=== PATIENT | male | born 1940 | race Hispanic/Latino ===

== ENCOUNTER 2021-10-19 20:22 | Inpatient (IN) | payer MEDICARE, OTHER ==
[2021-10-19] MEDS ORDERED: SODIUM CHLORIDE 0.9% 1000 ML 1,000 ML IV ONE (22:48)
[2021-10-19 23:29] LABS: Basophils % (Auto) 0.3 % (0.0-1.8); Eosinophils # (Auto) 0.2 K/mm3 (0.0-0.4); Eosinophils % (Auto) 1.7 % (0.0-4.3); Hematocrit 43.5 % (35.5-45.6); Hemoglobin 14.9 gm/dl (11.8-15.2); Lymphocytes # (Auto) 1.1 K/mm3 (1.2-5.4); Lymphocytes % (Auto) 9.6 % (13.4-35.0); Mean Corpuscular HGB Conc 34 % (32-34); Mean Corpuscular Volume 98 fl (84-94); Monocytes # (Auto) 0.9 K/mm3 (0.0-0.8); Monocytes % (Auto) 8.5 % (0.0-7.3); Platelet Count 172 K/mm3 (140-440); Red Blood Count 4.45 M/mm3 (3.65-5.03); Red Cell Distribution Width 15.6 % (13.2-15.2)
[2021-10-19 23:38] LABS: INR 1.09 (0.87-1.13)
[2021-10-19 23:51] LABS: Alanine Aminotransferase 97 units/L (7-56); Albumin 3.6 g/dL (3.9-5); Blood Urea Nitrogen 22 mg/dL (9-20); Calcium 9.2 mg/dL (8.4-10.2); Hemolysis Index 9
[2021-10-19 23:55] LABS: BUN/Creatinine Ratio 31
--- NOTE | 2021-10-20 01:47 | Cat Scan Report ---
CT head/brain wo con INDICATION / CLINICAL INFORMATION: 81 years Male; Altered Mental Status. TECHNIQUE: Routine CT head without contrast. All CT scans at this location are performed using CT dos e reduction for ALARA by means of automated exposure control. COMPARISON: 08/13/2010 FINDINGS: BRAIN / INTRACRANIAL CONTENTS: No acute hemorrhage, mass effect, midline shift, hydrocephalus, or acu te, large territorial infarct. Moderate, diffuse cerebral and cerebellar atrophy. Marked degree of hippocampal atrophy suggested amanda aterally. There are moderate, confluent areas of decreased attenuation in the white matter of the cerebral polina spheres. These are nonspecific findings and may be related to microangiopathy (hypertension, diabetes , atherosclerosis), given the patient's age. It might be difficult to evaluate for small areas of isc hemia without diffusion imaging by MRI. CRANIOCERVICAL JUNCTION: No significant abnormality. ORBITS: No significant abnormality of visualized orbits. SINUSES / MASTOIDS: Partial opacification seen in the right sphenoid sinus, with wall thickening-find ings suggest chronic sinus disease. Minimal mucosal thickening in the inferior mastoids on the left. ADDITIONAL FINDINGS: Atherosclerotic disease is seen in the anterior and posterior circulation. IMPRESSION: 1. No focal mass, hemorrhage, hydrocephalus, or acute, large territorial infarct. Signer Name: Carlos Mendoza MD, III Signed: 10/20/2021 1:43 AM Workstation Name: [id number]
--- NOTE | 2021-10-20 03:32 | XRay Report ---
CHEST 1 VIEW INDICATION / CLINICAL INFORMATION: Dyspnea STUDY TIME: 302 COMPARISON: 08/13/2010 FINDINGS: SUPPORT DEVICES: None HEART / MEDIASTINUM: No significant abnormality. LUNGS / PLEURA: Mild linear atelectatic changes are seen in the right lung. No definite pneumonic inf iltrates or effusions are seen. No pneumothorax. ADDITIONAL FINDINGS: No significant additional findings. Signer Name: Vinod Carrillo MD Signed: 10/20/2021 3:28 AM Workstation Name: [id number]
[2021-10-20 03:38] LABS: Color,Urine Amber (Yellow)
[2021-10-20 03:40] LABS: Ictotest,Urine Positive (Negative)
[2021-10-20 03:41] LABS: Mucus,Urine FEW /HPF
[2021-10-20 03:42] LABS: Amphetamine Screen,Urine Negative; Benzodiazepines Screen,Urine Negative; Cannabinoid Screen,Urine Negative; Cocaine Screen,Urine Negative; Methadone Screen,Urine Negative; Opiate Screen,Urine Negative
--- NOTE | 2021-10-20 04:39 | Emergency Department Report ---
ED Altered Mental Status HPI - General Chief Complaint: Altered Mental Status Stated Complaint: AMS PUI?: No Time Seen by Provider: 10/19/21 22:44 Source: family, EMS Mode of arrival: Stretcher Limitations: Altered Mental Status - History of Present Illness Initial Comments: FAMILY CALLED 911 FOR AMS, HASN'T BEEN SPEAKING FOR THE LAST 3 DAYS, REFUSING TO GET OUT OF BED, BASELINE IS AAOX4 - HE NORMALLY GETS IN HIS WHEELCHAIR HAS BEEN REFUSING THE PAST 3 DAYS, REFUSING TO ANSWER QUESTIONS - PT LIKES TO SHOOT GUNS AND FAMILY WOULD NOT GIVE PT HIM HIS AMMO AND ALLOW HIM TO CONTINUE HIS ACTIVITIES, REFUSING TO SPEAK TO DAUGHTER DUE TO THIS, SO THEY CALLED 911. EMS STATES HE IS AAOX2 PT IS IN NEGLECTED STATEM, SMELLS STRONGLY OF ETOH AND FECES , AWAKE BUT CANNOT ANSWER QUESTIONS REGARDING THE DAY AND TIME, KNOWS HE IS THE HOSPITAL. DAUGHTER WITH HIM STATED THAT HE [facility] AND HAS DONE TESTS FOR DEMETNIA BUT NO DIAGNOSIS YET MD Complaint: altered mental status, confusion, decreased responsiveness -: Gradual, days(s) Severity: moderate Consistency of Symptoms: constant Context: history of similar presen Associated Symptoms: denies: denies other symptoms, chest pain, cough, diaphoresis, fever/chills, headaches - Related Data Allergies Allergy/AdvReac Type Severity Reaction Status Date / Time No Known Allergies Allergy Unverified 10/19/21 21:53 ED Review of Systems ROS: Stated complaint: AMS Other details as noted in HPI Comment: Unobtainable due to pts medical conditions ED Past Medical Hx - Past Medical History Previous Medical History?: Yes Hx Hypertension: Yes Hx Diabetes: Yes (METFORMIN) Hx Psychiatric Treatment: Yes (DEPRESSION) - Surgical History Past Surgical History?: No - Social History Smoking Status: Unknown if ever smoked Substance Use Type: None ED Physical Exam - General Limitations: Altered Mental Status General appearance: alert, other (unkempt, dishevelled ) - Head Head exam: Present: atraumatic, normocephalic - Eye Eye exam: Present: normal appearance - ENT ENT exam: Present: mucous membranes moist - Neck Neck exam: Present: normal inspection - Respiratory Respiratory exam: Present: normal lung sounds bilaterally. Absent: respiratory distress - Cardiovascular Cardiovascular Exam: Present: regular rate, normal rhythm. Absent: systolic murmur, diastolic murmur, rubs, gallop - GI/Abdominal GI/Abdominal exam: Present: soft, normal bowel sounds - Rectal Rectal exam: Present: deferred - Extremities Exam Extremities exam: Present: normal inspection - Back Exam Back exam: Present: normal inspection - Expanded Neurological Exam Expanded Neurological exam: Present: innattentive Best Eye Response ([place]): (4) open spontaneously Best Motor Response ([place]): (6) obeys commands Best Verbal Response ([place]): (4) confused conversation [place] Total: 14 - Psychiatric Psychiatric exam: Present: normal affect, normal mood - Skin Skin exam: Present: warm, dry, intact, normal color. Absent: rash ED Course Vital Signs 10/19/21 10/19/21 10/19/21 21:53 22:25 22:31 Temperature 97.3 F L Pulse Rate 100 H Respiratory 18 Rate Blood Pressure 136/92 140/96 O2 Sat by Pulse 100 100 100 Oximetry 10/19/21 10/19/21 10/19/21 22:45 23:01 23:15 Temperature Pulse Rate Respiratory Rate Blood Pressure 145/93 145/93 130/86 O2 Sat by Pulse 100 99 99 Oximetry 10/19/21 10/19/21 10/20/21 23:31 23:46 00:00 Temperature Pulse Rate Respiratory Rate Blood Pressure 130/86 130/86 138/95 O2 Sat by Pulse 100 100 99 Oximetry 10/20/21 10/20/21 10/20/21 00:15 00:31 00:45 Temperature Pulse Rate Respiratory Rate Blood Pressure 143/97 143/97 152/111 O2 Sat by Pulse 99 99 99 Oximetry 10/20/21 10/20/21 10/20/21 01:01 01:06 01:15 Temperature Pulse Rate Respiratory Rate Blood Pressure 152/111 147/115 O2 Sat by Pulse 100 99 99 Oximetry 10/20/21 10/20/21 10/20/21 01:31 01:40 01:45 Temperature Pulse Rate 100 H Respiratory Rate Blood Pressure 147/115 142/93 O2 Sat by Pulse 99 99 Oximetry 10/20/21 10/20/21 10/20/21 02:01 02:15 02:31 Temperature Pulse Rate Respiratory Rate Blood Pressure 142/93 132/101 132/101 O2 Sat by Pulse 100 100 100 Oximetry 10/20/21 02:45 Temperature Pulse Rate Respiratory Rate Blood Pressure 139/89 O2 Sat by Pulse 99 Oximetry - Lab Data Result diagrams: 10/19/21 23:10 10/19/21 23:10 Lab Results 10/19/21 10/19/21 10/19/21 Range/Units 23:10 23:10 23:10 WBC 11.1 H (4.5-11.0) K/mm3 RBC 4.45 (3.65-5.03) M/mm3 Hgb 14.9 (11.8-15.2) gm/dl Hct 43.5 (35.5-45.6) % MCV 98 H (84-94) fl MCH 33 H (28-32) pg MCHC 34 (32-34) % RDW 15.6 H (13.2-15.2) % Plt Count 172 (140-440) K/mm3 Lymph % (Auto) 9.6 L (13.4-35.0) % [place] % (Auto) 8.5 H (0.0-7.3) % Eos % (Auto) 1.7 (0.0-4.3) % Baso % (Auto) 0.3 (0.0-1.8) % Lymph # (Auto) 1.1 L (1.2-5.4) K/mm3 [place] # (Auto) 0.9 H (0.0-0.8) K/mm3 Eos # (Auto) 0.2 (0.0-0.4) K/mm3 Baso # (Auto) 0.0 (0.0-0.1) K/mm3 Seg Neutrophils % 79.9 H (40.0-70.0) % Seg Neutrophils # 8.9 H (1.8-7.7) K/mm3 PT 15.3 H (12.2-14.9) Sec. INR 1.09 (0.87-1.13) Sodium (137-145) mmol/L Potassium (3.6-5.0) mmol/L Chloride (98-107) mmol/L Carbon Dioxide (22-30) mmol/L Anion Gap mmol/L BUN (9-20) mg/dL Creatinine (0.8-1.3) mg/dL Estimated GFR ml/min BUN/Creatinine Ratio % Glucose (75-100) mg/dL Lactic Acid 2.70 H* (0.7-2.0) mmol/L Calcium (8.4-10.2) mg/dL Total Bilirubin (0.1-1.2) mg/dL AST (5-40) units/L ALT (7-56) units/L Alkaline Phosphatase (35-129) units/L Ammonia (25-60) umol/L Total Creatine Kinase (55-170) units/L Troponin T (0.00-0.029) ng/mL Total Protein (6.3-8.2) g/dL Albumin (3.9-5) g/dL Albumin/Globulin Ratio % Urine Color (Yellow) Urine Turbidity (Clear) Specific [place] (Man) (1.003-1.030) Ur Protein (Man) (Negative) mg/dL Ur Ketones (Man) (Negative) Ur Nitrite (Man) (Negative) Urine Bilirubin (Man) (Negative) Urine Ictotest (Negative) Leukocyte Esterase (Man) (Negative) Urine WBC (Auto) (0.0-6.0) /HPF Urine RBC (Auto) (0.0-6.0) /HPF U Epithel Cells (Auto) (0-13.0) /HPF Urine RBC (Manual) (Negative) Urine Mucus /HPF Salicylates (2.8-20.0) mg/dL Urine Opiates Screen Urine Methadone Screen Acetaminophen (10.0-30.0) ug/mL Ur Barbiturates Screen Ur Phencyclidine Scrn Ur Amphetamines Screen U Benzodiazepines Scrn Urine Cocaine Screen U Marijuana (THC) Screen Drugs of Abuse Note Plasma/Serum Alcohol (0-0.07) % 10/19/21 10/19/21 10/19/21 Range/Units 23:10 23:10 23:10 WBC (4.5-11.0) K/mm3 RBC (3.65-5.03) M/mm3 Hgb (11.8-15.2) gm/dl Hct (35.5-45.6) % MCV (84-94) fl MCH (28-32) pg MCHC (32-34) % RDW (13.2-15.2) % Plt Count (140-440) K/mm3 Lymph % (Auto) (13.4-35.0) % [place] % (Auto) (0.0-7.3) % Eos % (Auto) (0.0-4.3) % Baso % (Auto) (0.0-1.8) % Lymph # (Auto) (1.2-5.4) K/mm3 [place] # (Auto) (0.0-0.8) K/mm3 Eos # (Auto) (0.0-0.4) K/mm3 Baso # (Auto) (0.0-0.1) K/mm3 Seg Neutrophils % (40.0-70.0) % Seg Neutrophils # (1.8-7.7) K/mm3 PT (12.2-14.9) Sec. INR (0.87-1.13) Sodium 138 (137-145) mmol/L Potassium 4.3 (3.6-5.0) mmol/L Chloride 100.3 (98-107) mmol/L Carbon Dioxide 21 L (22-30) mmol/L Anion Gap 21 mmol/L BUN 22 H (9-20) mg/dL Creatinine 0.7 L (0.8-1.3) mg/dL Estimated GFR > 60 ml/min BUN/Creatinine Ratio 31 % Glucose 195 H (75-100) mg/dL Lactic Acid (0.7-2.0) mmol/L Calcium 9.2 (8.4-10.2) mg/dL Total Bilirubin 5.50 H (0.1-1.2) mg/dL AST 123 H (5-40) units/L ALT 97 H (7-56) units/L Alkaline Phosphatase 637 H (35-129) units/L Ammonia (25-60) umol/L Total Creatine Kinase 313 H (55-170) units/L Troponin T 0.020 (0.00-0.029) ng/mL Total Protein 7.9 (6.3-8.2) g/dL Albumin 3.6 L (3.9-5) g/dL Albumin/Globulin Ratio 0.8 % Urine Color (Yellow) Urine Turbidity (Clear) Specific [place] (Man) (1.003-1.030) Ur Protein (Man) (Negative) mg/dL Ur Ketones (Man) (Negative) Ur Nitrite (Man) (Negative) Urine Bilirubin (Man) (Negative) Urine Ictotest (Negative) Leukocyte Esterase (Man) (Negative) Urine WBC (Auto) (0.0-6.0) /HPF Urine RBC (Auto) (0.0-6.0) /HPF U Epithel Cells (Auto) (0-13.0) /HPF Urine RBC (Manual) (Negative) Urine Mucus /HPF Salicylates < 0.3 L (2.8-20.0) mg/dL Urine Opiates Screen Urine Methadone Screen Acetaminophen 5.0 L (10.0-30.0) ug/mL Ur Barbiturates Screen Ur Phencyclidine Scrn Ur Amphetamines Screen U Benzodiazepines Scrn Urine Cocaine Screen U Marijuana (THC) Screen Drugs of Abuse Note Plasma/Serum Alcohol (0-0.07) % 10/19/21 10/20/21 10/20/21 Range/Units 23:10 00:28 00:38 WBC (4.5-11.0) K/mm3 RBC (3.65-5.03) M/mm3 Hgb (11.8-15.2) gm/dl Hct (35.5-45.6) % MCV (84-94) fl MCH (28-32) pg MCHC (32-34) % RDW (13.2-15.2) % Plt Count (140-440) K/mm3 Lymph % (Auto) (13.4-35.0) % [place] % (Auto) (0.0-7.3) % Eos % (Auto) (0.0-4.3) % Baso % (Auto) (0.0-1.8) % Lymph # (Auto) (1.2-5.4) K/mm3 [place] # (Auto) (0.0-0.8) K/mm3 Eos # (Auto) (0.0-0.4) K/mm3 Baso # (Auto) (0.0-0.1) K/mm3 Seg Neutrophils % (40.0-70.0) % Seg Neutrophils # (1.8-7.7) K/mm3 PT (12.2-14.9) Sec. INR (0.87-1.13) Sodium (137-145) mmol/L Potassium (3.6-5.0) mmol/L Chloride (98-107) mmol/L Carbon Dioxide (22-30) mmol/L Anion Gap mmol/L BUN (9-20) mg/dL Creatinine (0.8-1.3) mg/dL Estimated GFR ml/min BUN/Creatinine Ratio % Glucose (75-100) mg/dL Lactic Acid 3.30 H* (0.7-2.0) mmol/L Calcium (8.4-10.2) mg/dL Total Bilirubin (0.1-1.2) mg/dL AST (5-40) units/L ALT (7-56) units/L Alkaline Phosphatase (35-129) units/L Ammonia 28.0 (25-60) umol/L Total Creatine Kinase (55-170) units/L Troponin T (0.00-0.029) ng/mL Total Protein (6.3-8.2) g/dL Albumin (3.9-5) g/dL Albumin/Globulin Ratio % Urine Color (Yellow) Urine Turbidity (Clear) Specific [place] (Man) (1.003-1.030) Ur Protein (Man) (Negative) mg/dL Ur Ketones (Man) (Negative) Ur Nitrite (Man) (Negative) Urine Bilirubin (Man) (Negative) Urine Ictotest (Negative) Leukocyte Esterase (Man) (Negative) Urine WBC (Auto) (0.0-6.0) /HPF Urine RBC (Auto) (0.0-6.0) /HPF U Epithel Cells (Auto) (0-13.0) /HPF Urine RBC (Manual) (Negative) Urine Mucus /HPF Salicylates (2.8-20.0) mg/dL Urine Opiates Screen Urine Methadone Screen Acetaminophen (10.0-30.0) ug/mL Ur Barbiturates Screen Ur Phencyclidine Scrn Ur Amphetamines Screen U Benzodiazepines Scrn Urine Cocaine Screen U Marijuana (THC) Screen Drugs of Abuse Note Plasma/Serum Alcohol < 0.01 (0-0.07) % 10/20/21 10/20/21 Range/Units 03:17 03:17 WBC (4.5-11.0) K/mm3 RBC (3.65-5.03) M/mm3 Hgb (11.8-15.2) gm/dl Hct (35.5-45.6) % MCV (84-94) fl MCH (28-32) pg MCHC (32-34) % RDW (13.2-15.2) % Plt Count (140-440) K/mm3 Lymph % (Auto) (13.4-35.0) % [place] % (Auto) (0.0-7.3) % Eos % (Auto) (0.0-4.3) % Baso % (Auto) (0.0-1.8) % Lymph # (Auto) (1.2-5.4) K/mm3 [place] # (Auto) (0.0-0.8) K/mm3 Eos # (Auto) (0.0-0.4) K/mm3 Baso # (Auto) (0.0-0.1) K/mm3 Seg Neutrophils % (40.0-70.0) % Seg Neutrophils # (1.8-7.7) K/mm3 PT (12.2-14.9) Sec. INR (0.87-1.13) Sodium (137-145) mmol/L Potassium (3.6-5.0) mmol/L Chloride (98-107) mmol/L Carbon Dioxide (22-30) mmol/L Anion Gap mmol/L BUN (9-20) mg/dL Creatinine (0.8-1.3) mg/dL Estimated GFR ml/min BUN/Creatinine Ratio % Glucose (75-100) mg/dL Lactic Acid (0.7-2.0) mmol/L Calcium (8.4-10.2) mg/dL Total Bilirubin (0.1-1.2) mg/dL AST (5-40) units/L ALT (7-56) units/L Alkaline Phosphatase (35-129) units/L Ammonia (25-60) umol/L Total Creatine Kinase (55-170) units/L Troponin T (0.00-0.029) ng/mL Total Protein (6.3-8.2) g/dL Albumin (3.9-5) g/dL Albumin/Globulin Ratio % Urine Color [place] (Yellow) Urine Turbidity Clear (Clear) Specific [place] (Man) 1.025 (1.003-1.030) Ur Protein (Man) 1+ (Negative) mg/dL Ur Ketones (Man) 1+ (Negative) Ur Nitrite (Man) Negative (Negative) Urine Bilirubin (Man) Small (Negative) Urine Ictotest Positive (Negative) Leukocyte Esterase (Man) Negative (Negative) Urine WBC (Auto) 6.0 (0.0-6.0) /HPF Urine RBC (Auto) 3.0 (0.0-6.0) /HPF U Epithel Cells (Auto) 3.0 (0-13.0) /HPF Urine RBC (Manual) Negative (Negative) Urine Mucus Few /HPF Salicylates (2.8-20.0) mg/dL Urine Opiates Screen Negative Urine Methadone Screen Negative Acetaminophen (10.0-30.0) ug/mL Ur Barbiturates Screen Negative Ur Phencyclidine Scrn Negative Ur Amphetamines Screen Negative U Benzodiazepines Scrn Negative Urine Cocaine Screen Negative U Marijuana (THC) Screen Negative Drugs of Abuse Note Disclamer Plasma/Serum Alcohol (0-0.07) % - EKG Data -: EKG Interpreted by Me EKG shows normal: sinus rhythm Rate: tachycardia Interpretation: no acute changes - Radiology Data Radiology results: report reviewed, image reviewed - Medical Decision Making work up showed elevated LFTS and t bili , no abdominal pain no history of liver disease and normal ammonia ct head negative as well as x ay UA didn;t show uti vss , talked to daughter wants him to be admitted to see why he has AMS Critical care attestation.: If time is entered above; I have spent that time in minutes in the direct care of this critically ill patient, excluding procedure time. ED Disposition Clinical Impression: Altered mental status, Confusion, Transaminitis Disposition: ADMITTED INPATIENT Is pt being admited?: Yes Does the pt Need Aspirin: No Condition: Stable Referrals: UMANG WEBSTER MD [Primary Care Provider] - 3-5 Days
[2021-10-20] MEDS ORDERED: ALBUTEROL 2.5 MG/3 ML NEBU IH PRN (05:56)
[2021-10-20] MEDS ORDERED: ONDANSETRON 4 MG/2 ML INJ IV PRN (05:56)
[2021-10-20] MEDS ORDERED: MORPHINE 4 MG/1 ML INJ IV PRN (05:56)
[2021-10-20] MEDS ORDERED: MORPHINE 2 MG/1 ML INJ IV PRN (05:56)
[2021-10-20] MEDS ORDERED: DEXTROSE 50% IN WATER (25GM) 50 ML SYRINGE IV PRN (05:58)
--- NOTE | 2021-10-20 06:06 | History and Physical Report ---
History of Present Illness Date of examination: 10/20/21 Date of admission: 10/20/21 Chief complaint: Altered mental status History of present illness: 81 years old male with past medical history of diabetes and depression was brought to the emergency room because of altered mental status. As per the record patient has not been speaking for the last 3 days, refusing to get out of the bed. Family called 911 for altered mental status. Patient is normally gets in his wheelchair but has been refusing for the past 3 days. Patient refusing to answer question. Patient likes to shoot grandson and family would not give patient his emanation and allow him to continue his activities. Patient refused to speak to daughter due to these, so they called 911. EMS states patient is awake alert oriented x2. Patient is in neglected state. Patient smells strongly EtOH emphasis. Patient is awake but cannot answer question regarding the day and time, knows he is in the hospital. Daughter with him is started that [facility] and has done test for dementia but no diagnosis yet. In the ER initial CT scan of the head shows no acute intracranial abnormality, patient ammonia is 28.0 but lactic acid is 2.70 Past History Past Medical History: diabetes, hypertension, other (Depression) Past Surgical History: No surgical history Social history: alcohol abuse Family history: hypertension Medications and Allergies Allergies Allergy/AdvReac Type Severity Reaction Status Date / Time No Known Allergies Allergy Unverified 10/19/21 21:53 Active Meds: Active Medications Acetaminophen (Acetaminophen 325 Mg Tab) 650 mg PO Q4H PRN PRN Reason: Pain MILD(1-3)/Fever >100.5/CALLEJAS Albuterol (Albuterol 2.5 Mg/3 Ml Nebu) 2.5 mg IH Q3HRT PRN PRN Reason: Shortness Of Breath Albuterol/Ipratropium (Ipratropium/Albuterol Sulfate 3 Ml Ampul.Neb) 1 ampul IH Q6HRT BALDO Dextrose (Dextrose 50% In Water (25gm) 50 Ml Syringe) 50 ml IV Q30MIN PRN; Protocol PRN Reason: Hypoglycemia Insulin Human Lispro (Insulin Lispro 100 Unit/Ml) 0 unit SUB-Q ACHS BALDO; Protocol Morphine Sulfate (Morphine 2 Mg/1 Ml Inj) 2 mg IV Q4H PRN PRN Reason: Pain, Moderate (4-6) Morphine Sulfate (Morphine 4 Mg/1 Ml Inj) 4 mg IV Q4H PRN PRN Reason: Pain , Severe (7-10) Ondansetron HCl (Ondansetron 4 Mg/2 Ml Inj) 4 mg IV Q8H PRN PRN Reason: Nausea And Vomiting Sodium Chloride (Sodium Chloride 0.9% 10 Ml Flush Syringe) 10 ml IV BID BALDO Sodium Chloride (Sodium Chloride 0.9% 10 Ml Flush Syringe) 10 ml IV PRN PRN PRN Reason: LINE FLUSH Review of Systems All systems: negative Constitutional: fatigue, malaise, lethargy, other Exam - Constitutional Vitals: Temp Pulse Resp BP Pulse Ox 97.3 F L 100 H 18 139/89 99 10/19/21 21:53 10/20/21 01:40 10/19/21 21:53 10/20/21 02:45 10/20/21 02:45 General appearance: Present: no acute distress, well-nourished - EENT Eyes: Present: PERRL ENT: hearing intact, clear oral mucosa - Neck Neck: Present: supple, normal ROM - Respiratory Respiratory effort: normal Respiratory: bilateral: CTA - Cardiovascular Heart Sounds: Present: S1 & S2. Absent: rub, click - Extremities Extremities: pulses symmetrical, No edema Peripheral Pulses: within normal limits - Abdominal General gastrointestinal: Present: soft, non-tender, non-distended, normal bowel sounds Male genitourinary: Present: normal - Integumentary Integumentary: Present: clear, warm, dry - Musculoskeletal Musculoskeletal: gait normal, strength equal bilaterally - Psychiatric Psychiatric: intact judgment & insight, other (Patient is awake alert) - Neurologic Neurologic: CNII-XII intact, moves all extremities, other (Patient is colored) HEART Score - HEART Score Troponin: Troponin T 0.020 ng/mL (0.00-0.029) 10/19/21 23:10 Results - Labs CBC & Chem 7: 10/19/21 23:10 10/19/21 23:10 Labs: Laboratory Last Values WBC 11.1 K/mm3 (4.5-11.0) H 10/19/21 23:10 RBC 4.45 M/mm3 (3.65-5.03) 10/19/21 23:10 Hgb 14.9 gm/dl (11.8-15.2) 10/19/21 23:10 Hct 43.5 % (35.5-45.6) 10/19/21 23:10 MCV 98 fl (84-94) H 10/19/21 23:10 MCH 33 pg (28-32) H 10/19/21 23:10 MCHC 34 % (32-34) 10/19/21 23:10 RDW 15.6 % (13.2-15.2) H 10/19/21 23:10 Plt Count 172 K/mm3 (140-440) 10/19/21 23:10 Lymph % (Auto) 9.6 % (13.4-35.0) L 10/19/21 23:10 [place] % (Auto) 8.5 % (0.0-7.3) H 10/19/21 23:10 Eos % (Auto) 1.7 % (0.0-4.3) 10/19/21 23:10 Baso % (Auto) 0.3 % (0.0-1.8) 10/19/21 23:10 Lymph # (Auto) 1.1 K/mm3 (1.2-5.4) L 10/19/21 23:10 [place] # (Auto) 0.9 K/mm3 (0.0-0.8) H 10/19/21 23:10 Eos # (Auto) 0.2 K/mm3 (0.0-0.4) 10/19/21 23:10 Baso # (Auto) 0.0 K/mm3 (0.0-0.1) 10/19/21 23:10 Seg Neutrophils % 79.9 % (40.0-70.0) H 10/19/21 23:10 Seg Neutrophils # 8.9 K/mm3 (1.8-7.7) H 10/19/21 23:10 PT 15.3 Sec. (12.2-14.9) H 10/19/21 23:10 INR 1.09 (0.87-1.13) 10/19/21 23:10 Sodium 138 mmol/L (137-145) 10/19/21 23:10 Potassium 4.3 mmol/L (3.6-5.0) 10/19/21 23:10 Chloride 100.3 mmol/L (98-107) 10/19/21 23:10 Carbon Dioxide 21 mmol/L (22-30) L 10/19/21 23:10 Anion Gap 21 mmol/L 10/19/21 23:10 BUN 22 mg/dL (9-20) H 10/19/21 23:10 Creatinine 0.7 mg/dL (0.8-1.3) L 10/19/21 23:10 Estimated GFR > 60 ml/min 10/19/21 23:10 BUN/Creatinine Ratio 31 % 10/19/21 23:10 Glucose 195 mg/dL (75-100) H 10/19/21 23:10 Lactic Acid 2.80 mmol/L (0.7-2.0) H* 10/20/21 04:26 Calcium 9.2 mg/dL (8.4-10.2) 10/19/21 23:10 Total Bilirubin 5.50 mg/dL (0.1-1.2) H 10/19/21 23:10 AST 123 units/L (5-40) H 10/19/21 23:10 ALT 97 units/L (7-56) H 10/19/21 23:10 Alkaline Phosphatase 637 units/L (35-129) H 10/19/21 23:10 Ammonia 28.0 umol/L (25-60) 10/20/21 00:28 Total Creatine Kinase 313 units/L (55-170) H 10/19/21 23:10 Troponin T 0.020 ng/mL (0.00-0.029) 10/19/21 23:10 Total Protein 7.9 g/dL (6.3-8.2) 10/19/21 23:10 Albumin 3.6 g/dL (3.9-5) L 10/19/21 23:10 Albumin/Globulin Ratio 0.8 % 10/19/21 23:10 Urine Color [place] (Yellow) 10/20/21 03:17 Urine Turbidity Clear (Clear) 10/20/21 03:17 Specific [place] (Man) 1.025 (1.003-1.030) 10/20/21 03:17 Ur Protein (Man) 1+ mg/dL (Negative) 10/20/21 03:17 Ur Ketones (Man) 1+ (Negative) 10/20/21 03:17 Ur Nitrite (Man) Negative (Negative) 10/20/21 03:17 Urine Bilirubin (Man) Small (Negative) 10/20/21 03:17 Urine Ictotest Positive (Negative) 10/20/21 03:17 Leukocyte Esterase (Man) Negative (Negative) 10/20/21 03:17 Urine WBC (Auto) 6.0 /HPF (0.0-6.0) 10/20/21 03:17 Urine RBC (Auto) 3.0 /HPF (0.0-6.0) 10/20/21 03:17 U Epithel Cells (Auto) 3.0 /HPF (0-13.0) 10/20/21 03:17 Urine RBC (Manual) Negative (Negative) 10/20/21 03:17 Urine Mucus Few /HPF 10/20/21 03:17 Salicylates < 0.3 mg/dL (2.8-20.0) L 10/19/21 23:10 Urine Opiates Screen Negative 10/20/21 03:17 Urine Methadone Screen Negative 10/20/21 03:17 Acetaminophen 5.0 ug/mL (10.0-30.0) L 10/19/21 23:10 Ur Barbiturates Screen Negative 10/20/21 03:17 Ur Phencyclidine Scrn Negative 10/20/21 03:17 Ur Amphetamines Screen Negative 10/20/21 03:17 U Benzodiazepines Scrn Negative 10/20/21 03:17 Urine Cocaine Screen Negative 10/20/21 03:17 U Marijuana (THC) Screen Negative 10/20/21 03:17 Drugs of Abuse Note Disclamer 10/20/21 03:17 Plasma/Serum Alcohol < 0.01 % (0-0.07) 10/19/21 23:10 - Imaging and Cardiology Chest x-ray: report reviewed CT Scan - head: report reviewed Assessment and Plan VTE prophylaxis?: Mechanical Plan of care discussed with patient/family: Yes - Patient Problems (1) Acute metabolic encephalopathy Current Visit: Yes Status: Acute Plan to address problem: Admit the patient to the medical telemetry. Metabolic encephalopathy due to dementia and lactic acidosis. Normal saline at the rate of 100 cc/h. Rocephin 2 g IV daily. Oxygen via nasal breath liters per minute. Recheck CBC CMP in the morning. Neurology evaluation (2) Lactic acidosis Current Visit: Yes Status: Acute Plan to address problem: Normal saline at the rate of 100 cc/h. Rocephin 2 g IV daily. Recheck lactic acid/ CMP in the morning. (3) Alcohol abuse Current Visit: Yes Status: Acute Plan to address problem: Patient counseled regarding quit drinking. Patient is put on thiamine folic acid and banana bag daily (4) Confusion Current Visit: Yes Status: Acute Plan to address problem: Neurology evaluation. Continue home medication (5) Transaminitis Current Visit: Yes Status: Acute Plan to address problem: Most likely secondary to alcohol abuse. Normal saline at the rate of 100 cc/h. Recheck CBC CMP in the morning. Consult GI if needed (6) DVT prophylaxis Current Visit: Yes Status: Acute Plan to address problem: SCD for DVT prophylaxis. Pepcid 20 mg p.o. twice daily for GI prophylaxis. Patient is a full code
[2021-10-20] MEDS ORDERED: THIAMINE 100 MG, FOLIC ACID 1 MG, MULTIPLE VITAMIN INJ, ADULT 10 ML in SODIUM CHLORIDE ... IV ONE ×2 (06:10→14:00)
[2021-10-20] MEDS: INSULIN LISPRO 100 UNIT/ML SUB-Q SCH ×4 (07:30→22:50)
[2021-10-20] MEDS ORDERED: SODIUM CHLORIDE 0.9% 500 ML 500 ML IV ONE ×2 (08:00→16:00)
--- NOTE | 2021-10-20 10:58 | Electrocardiograph Report ---
[facility] Test Date: 2021-10-20 Test Time: 01:32:03 Pat Name: JESSICA BEACH Department: Room: A369 1 Gender: M [employer]: BRIJESH : 1940 Requested By: EMMY GARDNER Order Number: [id number] Reading MD: Heath Berry Measurements Intervals [place] Rate: 100 P: 66 PA: 203 QRS: -57 QRSD: 79 T: 75 QT: 367 QTc: 474 Interpretive Statements Sinus tachycardia Left anterior fascicular block Low voltage, precordial leads No previous ECG available for comparison Electronically Signed On 10-20-2021 10:57:42 EDT by Heath Berry
--- NOTE | 2021-10-20 12:05 | Cat Scan Report ---
CT ABDOMEN AND PELVIS WITH CONTRAST INDICATION / CLINICAL INFORMATION: Evaluate for possible ischemia vs obstruction. TECHNIQUE: Axial CT images were obtained through the abdomen and pelvis after 100 cc of Omnipaque 350 IV contras t. Sagittal and coronal reformatted images. All CT scans at this location are performed using CT dose reduction for ALARA by means of automated exposure control. COMPARISON: None available. FINDINGS: LOWER CHEST: No significant abnormality. LIVER: Moderate cirrhotic changes are identified in the liver. There is mild heterogeneity in the sup erior right hepatic lobe. There is also suggestion of a 2.9 cm nodular density in the anterior left h epatic lobe. A 2 cm complex cyst is identified near the IVC. GALLBLADDER: Contracted or surgically absent. BILE DUCTS: No significant abnormality. PANCREAS: There is mild fatty atrophy of the pancreas. No acute inflammatory changes or obvious mass. SPLEEN: Mild splenomegaly measuring 13.5 cm. ADRENALS: No significant abnormality. RIGHT KIDNEY and URETER: No significant abnormality. LEFT KIDNEY and URETER: No significant abnormality. STOMACH and SMALL BOWEL: No significant abnormality. COLON: No significant abnormality. APPENDIX: No significant abnormality. PERITONEUM: There is small perihepatic, perisplenic and pelvic ascites. No free air. No fluid collect ion. LYMPH NODES: No significant adenopathy. AORTA and ARTERIES: Mild atherosclerotic calcification without acute abnormality. IVC and VEINS: Nonocclusive filling defects are identified in the main portal vein extending to the p roximal right and left hepatic veins. There is also poor opacification of the superior mesenteric vei n. It is unclear if this represents thrombosis or mixing artifact. Given the filling defect in the po rtal vein and I cannot exclude SMV thrombosis. URINARY BLADDER: No significant abnormality. REPRODUCTIVE ORGANS: No significant abnormality. ADDITIONAL FINDINGS: None. SKELETAL SYSTEM: No significant abnormality. IMPRESSION: Cirrhosis of the liver, mild splenomegaly and small ascites. There is a 3 cm nodular density in the left hepatic lobe. Liver mass is difficult to exclude. Consider correlation with MRI or CT 4 phase li angela protocol and alpha feta protein levels. Partial thrombosis of the main portal vein and proximal right and left portal veins is identified. Th ere is also poor opacification of the superior mesenteric vein which is also suspicious for thrombosi s. There is no evidence for bowel obstruction or obvious CT findings of ischemia at this time. Signer Name: Harpreet Abrams Jr, MD Signed: 10/20/2021 12:01 PM Workstation Name: [id number]
--- NOTE | 2021-10-20 12:15 | Magnetic Resonance Report ---
MRI BRAIN WITHOUT AND WITH CONTRAST INDICATION / CLINICAL INFORMATION: acute encephalopathy / cva / metastasis / Wernicke Best possible exam, patient motion, repeated scans . . TECHNIQUE: Multisequence, multiplanar images were obtained. 15 cc of clear scanner was administered for postcont rast imaging. COMPARISON: None available. FINDINGS: CEREBRAL and CEREBELLAR HEMISPHERES: Diffuse central and cortical volume loss is again noted. No josie dence for diffusion restriction, hemorrhage, mass effect, extra-axial fluid collection or enhancing m ass. Moderate chronic microvascular ischemic changes in the white matter are again noted. VENTRICLES: The ventricular system is prominent but symmetric likely representing ex vacuo dilatation from volume loss. VISUALIZED ORBITS: No significant abnormality. VISUALIZED PARANASAL SINUSES: Minimal mucosal thickening is noted in the ethmoid air cells and right sphenoid sinus. ADDITIONAL FINDINGS: None. IMPRESSION: 1. No acute intracranial abnormality. 2. Advanced volume loss and chronic white matter changes. 3. No evidence for acute ischemia, hemorrhage or enhancing mass. Signer Name: Harpreet Abrams Jr, MD Signed: 10/20/2021 12:10 PM Workstation Name: [id number]
[2021-10-20] MEDS ORDERED: SODIUM CHLORIDE 0.9% 500 ML 500 ML IV NR (13:00)
--- NOTE | 2021-10-20 13:59 | Event Note ---
Date: 10/20/21 The patient was evaluated this morning, and he was found to be hemodynamically stable #Acute metabolic encephalopathyimproving Unremarkable CT head (10/19/2021), chest x-ray, and MRI brain without contrast (10/20/2021) Pending ammonia as encephalopathy could be hepatic encephalopathy Neurology consulted; pending recs #Lactic acidosis Lactic acid 2.7--> 3.3--> 2.8. Continue to trend until unremarkable. Likely secondary to elevated transaminases. Pending blood cultures. Unremarkable urinalysis. #Elevated transaminases #Decompensated alcoholic cirrhosis #Nodular mass on left hepatic lobe #Partial thrombosis of main portal vein T bilirubin 5.5, AST 123, ALT 97, alkaline phosphatase 637 CT abdomen and pelvis with contrast (10/20/2021) revealing cirrhosis of the liver with mild splenomegaly and ascites; 3 cm nodular density in the left hepatic lobe; partial thrombosis of the main portal vein and proximal right and left portal vein; poor opacification of the superior mesenteric vein which is suspicious for thrombosis; no evidence of bowel obstruction or obvious CT findings of ischemia at this time Gastroenterology consulted; pending recs #Alcohol dependence - Counseled patient on the importance of ETOH cessation. Assess patient's current ETOH consumption. Assisted with trying to arrange resources for patient to adequately work towards ETOH cessation. Patient expresses understanding. Starting p.o. thiamine, folic acid, and multivitamin. -Time: +15 mins #Mild protein caloric malnutrition Albumin 3.6 Starting dietary supplementation #Coordination of CARE time: 30 minutes. Total visit time equals 30 or more minutes with greater than 50% spent [id number] on coordination of care and counseling. #Advanced care planning -Disease education conducted, care plan discussed, diagnoses discussed, prognosis discussed, and patient acknowledges understanding with care plan -Time: +30 min
[2021-10-20] MEDS: IPRATROPIUM/ALBUTEROL SULFATE 3 ML AMPUL.NEB IH SCH ×2 (14:55→19:42)
[2021-10-20] MEDS ORDERED: LACTULOSE 20 GM/30 ML ORAL LIQD PO PRN (16:31)
--- NOTE | 2021-10-20 16:38 | Gastroenterology Consultation ---
History of Present Illness - Reason for Consult Consult date: 10/20/21 Liver Disease Requesting physician: MARCELLE HARP - History of Present Illness The patient is a poor historian; most of the hx is per the chart. He was brought to the ER for AMS, and imaging/labs show probable cirrhosis. In addition, he is in the midst of evaluation at the [facility] for dementia. There are no old records at [facility]. He has a possible liver mass as well as possible PV thrombosis based on the CT scan. Since admit, he has been cooperative but disoriented, but no abdominal pain, N/V, or gross blood in the stool. There is a hx of EtOH abuse, but it is not clear when his last drink was. He is not on lactulose or other typical cirrhosis meds on admit. Past History Past Medical History: diabetes, hypertension, liver disease, other (De pression/Dementia) Past Surgical History: No surgical history Social history: alcohol abuse Family history: hypertension Medications and Allergies Allergies Allergy/AdvReac Type Severity Reaction Status Date / Time No Known Allergies Allergy Verified 10/20/21 06:04 Active Meds: Active Medications Acetaminophen (Acetaminophen 325 Mg Tab) 650 mg PO Q4H PRN PRN Reason: Pain MILD(1-3)/Fever >100.5/CALLEJAS Albuterol (Albuterol 2.5 Mg/3 Ml Nebu) 2.5 mg IH Q3HRT PRN PRN Reason: Shortness Of Breath Albuterol/Ipratropium (Ipratropium/Albuterol Sulfate 3 Ml Ampul.Neb) 1 ampul IH Q6HRT BALDO Last Admin: 10/20/21 14:55 Dose: 1 ampul Dextrose (Dextrose 50% In Water (25gm) 50 Ml Syringe) 50 ml IV Q30MIN PRN; Protocol PRN Reason: Hypoglycemia Folic Acid (Folic Acid 1 Mg Tab) 1 mg PO DAILY BALDO Ceftriaxone Sodium (Rocephin/Ns 2 Gm/100 Ml) 2 gm in 100 mls @ 200 mls/hr IV Q24H BALDO; Protocol Thiamine HCl 100 mg/ Folic Acid 1 mg/ Multivitamins/Minerals 10 ml/ Sodium Chloride 1,011.2 mls @ 250 mls/hr IV ONCE ONE Stop: 10/20/21 18:02 Last Admin: 09/09/22 13:55 Dose: Not Given Sodium Chloride (Nacl 0.9% 500 Ml) 500 mls @ 999 mls/hr IV ONCE NR Stop: 10/20/21 17:00 Insulin Human Lispro (Insulin Lispro 100 Unit/Ml) 0 unit SUB-Q ACHS BALDO; P rotocol Last Admin: 10/20/21 12:41 Dose: Not Given Lactulose (Lactulose 20 Gm/30 Ml Oral Liqd) 20 gm PO Q8H PRN PRN Reason: Constipation Multivitamins (Multivitamins ,Therapeutic Tab) 1 each PO DAILY BALDO Ondansetron HCl (Ondansetron 4 Mg/2 Ml Inj) 4 mg IV Q8H PRN PRN Reason: Nausea And Vomiting Pantoprazole Sodium (Pantoprazole 40 Mg Tab) 40 mg PO QDAC BALDO Sodium Chloride (Sodium Chloride 0.9% 10 Ml Flush Syringe) 10 ml IV BID BALDO Last Admin: 10/20/21 13:55 Dose: 10 ml Sodium Chloride (Sodium Chloride 0.9% 10 Ml Flush Syringe) 10 ml IV PRN PRN PRN Reason: LINE FLUSH I HAVE REVIEWED/RECONCILED MEDICATIONS Review of Systems - Review of Systems ROS unobtainable: due to mental status Exam - Constitutional Vital Signs: Temp Pulse Resp BP Pulse Ox 97.8 F 99 H 20 145/99 98 10/20/21 12:37 10/20/21 12:37 10/20/21 12:37 10/20/21 12:37 10/20/21 12:37 General appearance: no acute distress, disheveled - EENT Eyes: PERRL, EOM intact, scleral icterus ENT: hearing intact, clear oral mucosa, poor dentition - Neck Neck: supple, normal ROM - Respiratory Respiratory effort: normal Respiratory: bilateral: CTA - Cardiovascular Rhythm: regular Heart Sounds: Present: S1 & S2 Extremities: no ischemia, No edema - Gastrointestinal General gastrointestinal: Present: soft, non-tender, non-distended - Integumentary Integumentary: Present: clear, warm, dry, jaundice - Neurologic Neurological: oriented to person, asterixis - Labs CBC & Chem 7: 10/19/21 23:10 10/19/21 23:10 Lab Results: Laboratory Results - last 24 hr 10/19/21 10/19/21 10/19/21 23:10 23:10 23:10 WBC 11.1 H RBC 4.45 Hgb 14.9 Hct 43.5 MCV 98 H MCH 33 H MCHC 34 RDW 15.6 H Plt Count 172 Lymph % (Auto) 9.6 L Lipscomb % (Auto) 8.5 H Eos % (Auto) 1.7 Baso % (Auto) 0.3 Lymph # (Auto) 1.1 L [place]comb # (Auto) 0.9 H Eos # (Auto) 0.2 Baso # (Auto) 0.0 Seg Neutrophils % 79.9 H Seg Neutrophils # 8.9 H PT 15.3 H INR 1.09 Sodium Potassium Chloride Carbon Dioxide Anion Gap BUN Creatinine Estimated GFR BUN/Creatinine Ratio Glucose POC Glucose Lactic Acid 2.70 H* Calcium Total Bilirubin AST ALT Alkaline Phosphatase Ammonia Total Creatine Kinase Troponin T Total Protein Albumin Albumin/Globulin Ratio Urine Color Urine Turbidity Specific [place] (Man) Ur Protein (Man) Ur Ketones (Man) Ur Nitrite (Man) Urine Bilirubin (Man) Urine Ictotest Leukocyte Esterase (Man) Urine WBC (Auto) Urine RBC (Auto) U Epithel Cells (Auto) Urine RBC (Manual) Urine Mucus Salicylates Urine Opiates Screen Urine Methadone Screen Acetaminophen Ur Barbiturates Screen Ur Phencyclidine Scrn Ur Amphetamines Screen U Benzodiazepines Scrn Urine Cocaine Screen U Marijuana (THC) Screen Drugs of Abuse Note Plasma/Serum Alcohol 10/19/21 10/19/21 10/19/21 23:10 23:10 23:10 WBC RBC Hgb Hct MCV MCH MCHC RDW Plt Count Lymph % (Auto) [place] % (Auto) Eos % (Auto) Baso % (Auto) Lymph # (Auto) [place]comb # (Auto) Eos # (Auto) Baso # (Auto) Seg Neutrophils % Seg Neutrophils # PT INR Sodium 138 Potassium 4.3 Chloride 100.3 Carbon Dioxide 21 L Anion Gap 21 BUN 22 H Creatinine 0.7 L Estimated GFR > 60 BUN/Creatinine Ratio 31 Glucose 195 H POC Glucose Lactic Acid Calcium 9.2 Total Bilirubin 5.50 H AST 123 H ALT 97 H Alkaline Phosphatase 637 H Ammonia Total Creatine Kinase 313 H Troponin T 0.020 Total Protein 7.9 Albumin 3.6 L Albumin/Globulin Ratio 0.8 Urine Color Urine Turbidity Specific [place] (Man) Ur Protein (Man) Ur Ketones (Man) Ur Nitrite (Man) Urine Bilirubin (Man) Urine Ictotest Leukocyte Esterase (Man) Urine WBC (Auto) Urine RBC (Auto) U Epithel Cells (Auto) Urine RBC (Manual) Urine Mucus Salicylates < 0.3 L Urine Opiates Screen Urine Methadone Screen Acetaminophen 5.0 L Ur Barbiturates Screen Ur Phencyclidine Scrn Ur Amphetamines Screen U Benzodiazepines Scrn Urine Cocaine Screen U Marijuana (THC) Screen Drugs of Abuse Note Plasma/Serum Alcohol 10/19/21 10/20/21 10/20/21 23:10 00:28 00:38 WBC RBC Hgb Hct MCV MCH MCHC RDW Plt Count Lymph % (Auto) [place] % (Auto) Eos % (Auto) Baso % (Auto) Lymph # (Auto) [place] # (Auto) Eos # (Auto) Baso # (Auto) Seg Neutrophils % Seg Neutrophils # PT INR Sodium Potassium Chloride Carbon Dioxide Anion Gap BUN Creatinine Estimated GFR BUN/Creatinine Ratio Glucose POC Glucose Lactic Acid 3.30 H* Calcium Total Bilirubin AST ALT Alkaline Phosphatase Ammonia 28.0 Total Creatine Kinase Troponin T Total Protein Albumin Albumin/Globulin Ratio Urine Color Urine Turbidity Specific [place] (Man) Ur Protein (Man) Ur Ketones (Man) Ur Nitrite (Man) Urine Bilirubin (Man) Urine Ictotest Leukocyte Esterase (Man) Urine WBC (Auto) Urine RBC (Auto) U Epithel Cells (Auto) Urine RBC (Manual) Urine Mucus Salicylates Urine Opiates Screen Urine Methadone Screen Acetaminophen Ur Barbiturates Screen Ur Phencyclidine Scrn Ur Amphetamines Screen U Benzodiazepines Scrn Urine Cocaine Screen U Marijuana (THC) Screen Drugs of Abuse Note Plasma/Serum Alcohol < 0.01 10/20/21 10/20/21 10/20/21 03:17 03:17 04:26 WBC RBC Hgb Hct MCV MCH MCHC RDW Plt Count Lymph % (Auto) [place] % (Auto) Eos % (Auto) Baso % (Auto) Lymph # (Auto) [place] # (Auto) Eos # (Auto) Baso # (Auto) Seg Neutrophils % Seg Neutrophils # PT INR Sodium Potassium Chloride Carbon Dioxide Anion Gap BUN Creatinine Estimated GFR BUN/Creatinine Ratio Glucose POC Glucose Lactic Acid 2.80 H* Calcium Total Bilirubin AST ALT Alkaline Phosphatase Ammonia Total Creatine Kinase Troponin T Total Protein Albumin Albumin/Globulin Ratio Urine Color Leslie Urine Turbidity Clear Specific [place] (Man) 1.025 Ur Protein (Man) 1+ Ur Ketones (Man) 1+ Ur Nitrite (Man) Negative Urine Bilirubin (Man) Small Urine Ictotest Positive Leukocyte Esterase (Man) Negative Urine WBC (Auto) 6.0 Urine RBC (Auto) 3.0 U Epithel Cells (Auto) 3.0 Urine RBC (Manual) Negative Urine Mucus Few Salicylates Urine Opiates Screen Negative Urine Methadone Screen Negative Acetaminophen Ur Barbiturates Screen Negative Ur Phencyclidine Scrn Negative Ur Amphetamines Screen Negative U Benzodiazepines Scrn Negative Urine Cocaine Screen Negative U Marijuana (THC) Screen Negative Drugs of Abuse Note Disclamer Plasma/Serum Alcohol 10/20/21 12:36 WBC RBC Hgb Hct MCV MCH MCHC RDW Plt Count Lymph % (Auto) [place] % (Auto) Eos % (Auto) Baso % (Auto) Lymph # (Auto) [place] # (Auto) Eos # (Auto) Baso # (Auto) Seg Neutrophils % Seg Neutrophils # PT INR Sodium Potassium Chloride Carbon Dioxide Anion Gap BUN Creatinine Estimated GFR BUN/Creatinine Ratio Glucose POC Glucose 161 H Lactic Acid Calcium Total Bilirubin AST ALT Alkaline Phosphatase Ammonia Total Creatine Kinase Troponin T Total Protein Albumin Albumin/Globulin Ratio Urine Color Urine Turbidity Specific [place] (Man) Ur Protein (Man) Ur Ketones (Man) Ur Nitrite (Man) Urine Bilirubin (Man) Urine Ictotest Leukocyte Esterase (Man) Urine WBC (Auto) Urine RBC (Auto) U Epithel Cells (Auto) Urine RBC (Manual) Urine Mucus Salicylates Urine Opiates Screen Urine Methadone Screen Acetaminophen Ur Barbiturates Screen Ur Phencyclidine Scrn Ur Amphetamines Screen U Benzodiazepines Scrn Urine Cocaine Screen U Marijuana (THC) Screen Drugs of Abuse Note Plasma/Serum Alcohol Assessment and Plan - Patient Problems (1) Alcoholic cirrhosis of liver Current Visit: Yes Status: Acute Plan to address problem: - Continue current supportive care with MVI, IV fluids, adequate nutrition. - We will add lactulose, and xifaxan if needed. - We will stop all narcotics, and given librium x 3 days for his confusion and likely active EtOH abuse. (2) Alcoholic hepatitis without ascites Current Visit: Yes Status: Acute (3) Liver mass Current Visit: Yes Status: Acute Plan to address problem: - If the mental status permits in the next 2 days, we will obtain an MRI of the liver; and AFP will also be drawn. (4) Portal vein thrombosis Current Visit: Yes Status: Acute Plan to address problem: - This may be chronic from his liver disease, or from a liver mass. - Before starting anticoagulation, we will verify the thrombosis with an MRI (since it may have been due to mixing/perfusion defect per CT).
--- NOTE | 2021-10-20 17:28 | Consultation ---
History of Present Illness Consult date: 10/20/21 Reason for Consult: AMS Chief complaint: AMS History of present illness: 72 yo male with htn, dm, liver dx, dementia, depression, alcohol abuse, who presents with noted change in behavior / personality for the last 3 days and found in feces/urine and smelling of alcohol by EMS. He notes no issues and does not know why he is here. During the exam he is noted with paralysis of the right ankle, which he states is new but denies any pain. He has no complaints. Past History Past Medical History: diabetes, hypertension, liver disease, other (Depression/Dementia) Past Surgical History: No surgical history Social history: alcohol abuse Family history: hypertension Medications and Allergies Allergies Allergy/AdvReac Type Severity Reaction Status Date / Time No Known Allergies Allergy Verified 10/20/21 06:04 Active Meds: Active Medications Acetaminophen (Acetaminophen 325 Mg Tab) 650 mg PO Q4H PRN PRN Reason: Pain MILD(1-3)/Fever >100.5/CALLEJAS Albuterol (Albuterol 2.5 Mg/3 Ml Nebu) 2.5 mg IH Q3HRT PRN PRN Reason: Shortness Of Breath Albuterol/Ipratropium (Ipratropium/Albuterol Sulfate 3 Ml Ampul.Neb) 1 ampul IH Q6HRT BALDO Last Admin: 10/20/21 14:55 Dose: 1 ampul Chlordiazepoxide HCl (Chlordiazepoxide 25 Mg Cap) 25 mg PO QHS BALDO Stop: 10/22/21 22:01 Dextrose (Dextrose 50% In Water (25gm) 50 Ml Syringe) 50 ml IV Q30MIN PRN; Protocol PRN Reason: Hypoglycemia Folic Acid (Folic Acid 1 Mg Tab) 1 mg PO DAILY COUNTS INCLUDE 234 BEDS AT THE [facility] Ceftriaxone Sodium (Rocephin/Ns 2 Gm/100 Ml) 2 gm in 100 mls @ 200 mls/hr IV Q24H BALDO; Protocol Thiamine HCl 100 mg/ Folic Acid 1 mg/ Multivitamins/Minerals 10 ml/ Sodium Chloride 1,011.2 mls @ 250 mls/hr IV ONCE ONE Stop: 10/20/21 18:02 Last Admin: 10/20/21 13:55 Dose: Not Given Insulin Human Lispro (Insulin Lispro 100 Unit/Ml) 0 unit SUB-Q ACHS BALDO; Protocol Last Admin: 10/20/21 12:41 Dose: Not Given Lactulose (Lactulose 20 Gm/30 Ml Oral Liqd) 20 gm PO Q8H PRN PRN Reason: Constipation Multivitamins (Multivitamins ,Therapeutic Tab) 1 each PO DAILY COUNTS INCLUDE 234 BEDS AT THE [facility] Ondansetron HCl (Ondansetron 4 Mg/2 Ml Inj) 4 mg IV Q8H PRN PRN Reason: Nausea And Vomiting Pantoprazole Sodium (Pantoprazole 40 Mg Tab) 40 mg PO QDAC BALDO Sodium Chloride (Sodium Chloride 0.9% 10 Ml Flush Syringe) 10 ml IV BID BALDO Last Admin: 10/20/21 13:55 Dose: 10 ml Sodium Chloride (Sodium Chloride 0.9% 10 Ml Flush Syringe) 10 ml IV PRN PRN PRN Reason: LINE FLUSH Review of Systems All systems: negative (as per hpi;) Physical Examination - Vital Signs Vital Signs: Vital Signs Temp Pulse Resp BP Pulse Ox 97.3 F L 100 H 18 136/92 100 10/19/21 21:53 10/19/21 21:53 10/19/21 21:53 10/19/21 21:53 10/19/21 21:53 - Physical Exam Narrative exam: Gen: nad, well-nourished; Head: normocephalic; Eyes: no gaze deviation; no ptosis; ENT: normal vocalization; poor dentition; CVS: warm and well-perfused; Pulm: no respiratory distress; GI: appears non-distended; Ext: no cyanosis appreciated at distal extremities; Skin: lesions at bilateral shins; Heme: no pathologic ecchymosis appreciated at distal extremities; Neuro: alert, oriented to name, not month (September), not year, not [facility], not name of hospital, no dysarthria, no aphasia, CN 2 - PERRL, visual nguyễn grossly intact, CN 3, 4, 6 - EOMI, CN 5 - facial sensation symmetric to light touch, CN 7 - facial movement symmetric, CN 8 - hearing grossly intact, CN 9, 10 - uvula midline, CN 11 symmetric shoulder movement, CN 12 - tongue midline; Motor - at least 4-/5 at all exts except 0/5 ankle dorsiflexion / 0/5 ankle plantar flexion at right ankle; Sensory - light touch symmetric, Cerebellar - fnf ntact, Gait - deferred secondary to fall risk; Results - Laboratory Findings CBC and BMP: 10/19/21 23:10 10/19/21 23:10 Abnormal Lab Findings: Abnormal Labs 10/19/21 10/19/21 10/19/21 23:10 23:10 23:10 WBC 11.1 H MCV 98 H MCH 33 H RDW 15.6 H Lymph % (Auto) 9.6 L [place] % (Auto) 8.5 H Lymph # (Auto) 1.1 L [place] # (Auto) 0.9 H Seg Neutrophils % 79.9 H Seg Neutrophils # 8.9 H PT 15.3 H Carbon Dioxide BUN Creatinine Glucose POC Glucose Lactic Acid 2.70 H* Total Bilirubin AST ALT Alkaline Phosphatase Total Creatine Kinase Albumin Prealbumin Vitamin B12 Salicylates Acetaminophen 10/19/21 10/19/21 10/19/21 23:10 23:10 23:10 WBC MCV MCH RDW Lymph % (Auto) [place] % (Auto) Lymph # (Auto) [place] # (Auto) Seg Neutrophils % Seg Neutrophils # PT Carbon Dioxide 21 L BUN 22 H Creatinine 0.7 L Glucose 195 H POC Glucose Lactic Acid Total Bilirubin 5.50 H AST 123 H ALT 97 H Alkaline Phosphatase 637 H Total Creatine Kinase 313 H Albumin 3.6 L Prealbumin Vitamin B12 Salicylates < 0.3 L Acetaminophen 5.0 L 10/20/21 10/20/21 10/20/21 00:38 04:26 12:36 WBC MCV MCH RDW Lymph % (Auto) [place] % (Auto) Lymph # (Auto) [place] # (Auto) Seg Neutrophils % Seg Neutrophils # PT Carbon Dioxide BUN Creatinine Glucose POC Glucose 161 H Lactic Acid 3.30 H* 2.80 H* Total Bilirubin AST ALT Alkaline Phosphatase Total Creatine Kinase Albumin Prealbumin Vitamin B12 Salicylates Acetaminophen 10/20/21 10/20/21 10/20/21 16:00 16:00 16:00 WBC MCV MCH RDW Lymph % (Auto) [place] % (Auto) Lymph # (Auto) [place] # (Auto) Seg Neutrophils % Seg Neutrophils # PT Carbon Dioxide BUN Creatinine Glucose POC Glucose Lactic Acid 2.10 H* Total Bilirubin AST ALT Alkaline Phosphatase Total Creatine Kinase Albumin Prealbumin 0.106 L Vitamin B12 1141 H Salicylates Acetaminophen 10/20/21 16:46 WBC MCV MCH RDW Lymph % (Auto) [place] % (Auto) Lymph # (Auto) [place] # (Auto) Seg Neutrophils % Seg Neutrophils # PT Carbon Dioxide BUN Creatinine Glucose POC Glucose 178 H Lactic Acid Total Bilirubin AST ALT Alkaline Phosphatase Total Creatine Kinase Albumin Prealbumin Vitamin B12 Salicylates Acetaminophen Assessment and Plan 81 yo male with dementia, depression, htn, liver disease, who presents with noted encephalopathy x 3 days (at least). 1. Acute Metabolic Encephalopathy - in the setting of underlying liver dx; ammonia pending(?). 2. Memory Loss / Wernicke's (partial?) - confirm b12, tsh, thiamine, rpr tsh. 3. Seizure - ?led to fecal/urinary incontinence in the setting of possible alcohol withdrawal; eeg ordered. 4. Right Ankle Weakness - pt/ot evaluation/monitoring (may need to confirm with family if this is acute vs chronic); ordered mri lumbar spine w/ wo contrast, if truly acute. 5. Alcohol Abuse / Withdrawal - ciwa protocol per primary team. 6. Liver Mass w/ portal vein thrombosis - workup per primary / gi team. Donell Ervin MD Neurology [id number]
[2021-10-20] MEDS: chlordiazePOXIDE 25 MG CAP PO SCH (22:13)
[2021-10-21] MEDS ORDERED: SODIUM CHLORIDE 0.9% 500 ML 500 ML IV ONE (00:48)
[2021-10-21] MEDS: cefTRIAXone/NS 2 GM/100 ML 2 GM/100 ML BAG IV SCH ×2 (07:05→07:07)
[2021-10-21 08:10] LABS: Basophils % (Auto) 0.3 % (0.0-1.8); Eosinophils # (Auto) 0.3 K/mm3 (0.0-0.4); Eosinophils % (Auto) 3.6 % (0.0-4.3); Hematocrit 40.6 % (35.5-45.6); Hemoglobin 13.6 gm/dl (11.8-15.2); Lymphocytes # (Auto) 1.1 K/mm3 (1.2-5.4); Lymphocytes % (Auto) 13.3 % (13.4-35.0); Mean Corpuscular HGB Conc 34 % (32-34); Mean Corpuscular Volume 97 fl (84-94); Monocytes # (Auto) 0.8 K/mm3 (0.0-0.8); Platelet Count 149 K/mm3 (140-440); Red Blood Count 4.16 M/mm3 (3.65-5.03); Red Cell Distribution Width 15.2 % (13.2-15.2)
[2021-10-21 08:24] LABS: Alanine Aminotransferase 102 units/L (7-56); Albumin 3.4 g/dL (3.9-5); Blood Urea Nitrogen 19 mg/dL (9-20); Calcium 8.8 mg/dL (8.4-10.2); Hemolysis Index 0
[2021-10-21 08:26] LABS: BUN/Creatinine Ratio 27
[2021-10-21] MEDS ORDERED: LACTATED RINGERS 1,000 ML IV ONE (09:03)
[2021-10-21] MEDS ORDERED: LORazepam 2 MG/ML VIAL IV PRN (09:05)
[2021-10-21] MEDS ORDERED: LORazepam 2 MG TAB PO PRN (09:05)
[2021-10-21] MEDS: INSULIN LISPRO 100 UNIT/ML SUB-Q SCH ×4 (09:32→21:37)
[2021-10-21] MEDS: PANTOPRAZOLE 40 MG TAB PO SCH (09:33)
[2021-10-21] MEDS: FOLIC ACID 1 MG TAB PO SCH (09:33)
[2021-10-21] MEDS: MULTIVITAMINS ,THERAPEUTIC TAB PO SCH (09:33)
[2021-10-21] MEDS ORDERED: THIAMINE 100 MG TAB PO SCH (10:00)
[2021-10-21 10:07] LABS: Hepatitis B Surface Antigen Non-Reactive (Negative); Hepatitis C Virus Antibody Non-Reactive (NonReactive)
--- NOTE | 2021-10-21 15:16 | Progress Note ---
Assessment and Plan Assessment and plan: #Acute metabolic encephalopathyimproving #Hepatic encephalopathy Unremarkable CT head (10/19/2021), chest x-ray, and MRI brain without contrast (10/20/2021) Pending ammonia as encephalopathy could be hepatic encephalopathy Neurology consulted; pending recs #Lactic acidosis Lactic acid 2.7--> 3.3--> 2.8-->2.3. Continue to trend until unremarkable. Likely secondary to elevated transaminases. Pending blood cultures. Unremarkable urinalysis. #Elevated transaminases-improving #Decompensated alcoholic cirrhosis #Nodular mass on left hepatic lobe #Partial thrombosis of main portal vein T bilirubin 5.5, AST 123, ALT 97, alkaline phosphatase 637 CT abdomen and pelvis with contrast (10/20/2021) revealing cirrhosis of the liver with mild splenomegaly and ascites; 3 cm nodular density in the left hepatic lobe; partial thrombosis of the main portal vein and proximal right and left portal vein; poor opacification of the superior mesenteric vein which is suspicious for thrombosis; no evidence of bowel obstruction or obvious CT findings of ischemia at this time Gastroenterology consulted; appreciate recs #Alcohol dependence - Counseled patient on the importance of ETOH cessation. Assess patient's current ETOH consumption. Assisted with trying to arrange resources for patient to adequately work towards ETOH cessation. Patient expresses understanding. Starting p.o. thiamine, folic acid, and multivitamin. -Time: +15 mins #Mild protein caloric malnutrition Albumin 3.6 Continue dietary supplementation #Advanced care planning -Disease education conducted, care plan discussed, diagnoses discussed, prognosis discussed, and patient acknowledges understanding with care plan -Time: +30 min Disposition Plan: Continue medical management Total Time Spent with Patient (Minutes): 45 min History Interval history: No acute events overnight. Hospitalist Physical - Constitutional Vitals: Temp Pulse Resp BP Pulse Ox 97.6 F 106 H 18 120/68 96 10/21/21 10:02 10/21/21 10:02 10/21/21 10:44 10/21/21 10:10/21/21 10:44 General appearance: Present: no acute distress, well-nourished, disheveled - EENT Eyes: Present: PERRL, EOM intact ENT: hearing intact, clear oral mucosa, poor dentition, edentulous - Neck Neck: Present: supple, normal ROM - Respiratory Respiratory effort: normal Respiratory: bilateral: CTA - Cardiovascular Rhythm: regular Heart Sounds: Present: S1 & S2 - Extremities Extremities: no ischemia, pulses intact, pulses symmetrical, No edema, normal temperature, normal color Peripheral Pulses: within normal limits - Abdominal General gastrointestinal: soft, non-tender, non-distended, normal bowel sounds - Integumentary Integumentary: Present: clear, warm, dry - Psychiatric Psychiatric: cooperative, other (limited memory) - Neurologic Neurologic: CNII-XII intact, other (Alert and oriented x2) - Allied Health Allied health notes reviewed: nursing HEART Score - HEART Score Troponin: Troponin T 0.020 ng/mL (0.00-0.029) 10/19/21 23:10 Results - Labs CBC & Chem 7: 10/21/21 07:49 10/21/21 07:49 Labs: Laboratory Last Values WBC 8.5 K/mm3 (4.5-11.0) 10/21/21 07:49 RBC 4.16 M/mm3 (3.65-5.03) 10/21/21 07:49 Hgb 13.6 gm/dl (11.8-15.2) 10/21/21 07:49 Hct 40.6 % (35.5-45.6) 10/21/21 07:49 MCV 97 fl (84-94) H 10/21/21 07:49 MCH 33 pg (28-32) H 10/21/21 07:49 MCHC 34 % (32-34) 10/21/21 07:49 RDW 15.2 % (13.2-15.2) 10/21/21 07:49 Plt Count 149 K/mm3 (140-440) 10/21/21 07:49 Lymph % (Auto) 13.3 % (13.4-35.0) L 10/21/21 07:49 Castro % (Auto) 9.0 % (0.0-7.3) H 10/21/21 07:49 Eos % (Auto) 3.6 % (0.0-4.3) 10/21/21 07:49 Baso % (Auto) 0.3 % (0.0-1.8) 10/21/21 07:49 Lymph # (Auto) 1.1 K/mm3 (1.2-5.4) L 10/21/21 07:49 Castro # (Auto) 0.8 K/mm3 (0.0-0.8) 10/21/21 07:49 Eos # (Auto) 0.3 K/mm3 (0.0-0.4) 10/21/21 07:49 Baso # (Auto) 0.0 K/mm3 (0.0-0.1) 10/21/21 07:49 Seg Neutrophils % 73.8 % (40.0-70.0) H 10/21/21 07:49 Seg Neutrophils # 6.3 K/mm3 (1.8-7.7) 10/21/21 07:49 PT 15.3 Sec. (12.2-14.9) H 10/19/21 23:10 INR 1.09 (0.87-1.13) 10/19/21 23:10 Sodium 135 mmol/L (137-145) L 10/21/21 07:49 Potassium 3.9 mmol/L (3.6-5.0) 10/21/21 07:49 Chloride 101.7 mmol/L (98-107) 10/21/21 07:49 Carbon Dioxide 20 mmol/L (22-30) L 10/21/21 07:49 Anion Gap 17 mmol/L 10/21/21 07:49 BUN 19 mg/dL (9-20) 10/21/21 07:49 Creatinine 0.7 mg/dL (0.8-1.3) L 10/21/21 07:49 Estimated GFR > 60 ml/min 10/21/21 07:49 BUN/Creatinine Ratio 27 % 10/21/21 07:49 Glucose 134 mg/dL (75-100) H 10/21/21 07:49 POC Glucose 225 mg/dL (70-105) H 10/21/21 11:50 Lactic Acid 2.40 mmol/L (0.7-2.0) H* 10/21/21 13:56 Calcium 8.8 mg/dL (8.4-10.2) 10/21/21 07:49 Total Bilirubin 4.30 mg/dL (0.1-1.2) H 10/21/21 07:49 AST 133 units/L (5-40) H 10/21/21 07:49 ALT 102 units/L (7-56) H 10/21/21 07:49 Alkaline Phosphatase 565 units/L (35-129) H 10/21/21 07:49 Ammonia 28.0 umol/L (25-60) 10/20/21 00:28 Total Creatine Kinase 313 units/L (55-170) H 10/19/21 23:10 Troponin T 0.020 ng/mL (0.00-0.029) 10/19/21 23:10 Total Protein 7.2 g/dL (6.3-8.2) 10/21/21 07:49 Albumin 3.4 g/dL (3.9-5) L 10/21/21 07:49 Albumin/Globulin Ratio 0.9 % 10/21/21 07:49 Prealbumin 0.106 g/L (0.200-0.400) L 10/20/21 16:00 Vitamin B12 1141 pg/mL (211-911) H 10/20/21 16:00 Folate 20.00 ng/mL (7.3-26.0) 10/20/21 16:00 TSH 0.864 mlU/mL (0.270-4.200) 10/20/21 16:00 Urine Color Leslie (Yellow) 10/20/21 03:17 Urine Turbidity Clear (Clear) 10/20/21 03:17 Specific Ranson (Man) 1.025 (1.003-1.030) 10/20/21 03:17 Ur Protein (Man) 1+ mg/dL (Negative) 10/20/21 03:17 Ur Ketones (Man) 1+ (Negative) 10/20/21 03:17 Ur Nitrite (Man) Negative (Negative) 10/20/21 03:17 Urine Bilirubin (Man) Small (Negative) 10/20/21 03:17 Urine Ictotest Positive (Negative) 10/20/21 03:17 Leukocyte Esterase (Man) Negative (Negative) 10/20/21 03:17 Urine WBC (Auto) 6.0 /HPF (0.0-6.0) 10/20/21 03:17 Urine RBC (Auto) 3.0 /HPF (0.0-6.0) 10/20/21 03:17 U Epithel Cells (Auto) 3.0 /HPF (0-13.0) 10/20/21 03:17 Urine RBC (Manual) Negative (Negative) 10/20/21 03:17 Urine Mucus Few /HPF 10/20/21 03:17 Salicylates < 0.3 mg/dL (2.8-20.0) L 10/19/21 23:10 Urine Opiates Screen Negative 10/20/21 03:17 Urine Methadone Screen Negative 10/20/21 03:17 Acetaminophen 5.0 ug/mL (10.0-30.0) L 10/19/21 23:10 Ur Barbiturates Screen Negative 10/20/21 03:17 Ur Phencyclidine Scrn Negative 10/20/21 03:17 Ur Amphetamines Screen Negative 10/20/21 03:17 U Benzodiazepines Scrn Negative 10/20/21 03:17 Urine Cocaine Screen Negative 10/20/21 03:17 U Marijuana (THC) Screen Negative 10/20/21 03:17 Drugs of Abuse Note Disclamer 10/20/21 03:17 Plasma/Serum Alcohol < 0.01 % (0-0.07) 10/19/21 23:10 Syphilis IgG/IgM Ab Nonreactive (NonReactive) 10/20/21 16:00 Hepatitis A IgM Ab Non-reactive (NonReactive) 10/21/21 07:49 Hep Bs Antigen Non-reactive (Negative) 10/21/21 07:49 Hep B Core IgM Ab Non-reactive (NonReactive) 10/21/21 07:49 Hepatitis C Antibody Non-reactive (NonReactive) 10/21/21 07:49 Bradford/IV: Voiding Method Condom Catheter Active Medications - Current Medications Current Medications: Generic Name Dose Route Start Last Admin Trade Name Freq PRN Reason Stop Dose Admin Acetaminophen 650 mg 10/20/21 05:56 Acetaminophen 325 Mg Tab PO Q4H PRN Pain MILD(1-3)/Fever >100.5/CALLEJAS Albuterol 2.5 mg 10/20/21 05:56 Albuterol 2.5 Mg/3 Ml Nebu IH Q3HRT PRN Shortness Of Breath Chlordiazepoxide HCl 25 mg 10/20/21 22:00 10/20/21 22:13 Chlordiazepoxide 25 Mg Cap PO 10/22/21 22:01 25 mg QHS BALDO Administration Dextrose 50 ml 10/20/21 05:58 Dextrose 50% In Water (25gm) 50 Ml Syringe IV Q30MIN PRN Hypoglycemia Protocol Folic Acid 1 mg 10/21/21 10:00 10/21/21 09:33 Folic Acid 1 Mg Tab PO 1 mg DAILY BALDO Administration Ceftriaxone Sodium 2 gm in 100 mls @ 200 mls/hr 10/20/21 07:00 10/21/21 07:07 Rocephin/Ns 2 Gm/100 Ml IV 200 mls/hr Q24H BALDO Administration Protocol Insulin Human Lispro 0 unit 10/20/21 07:30 10/21/21 09:32 Insulin Lispro 100 Unit/Ml SUB-Q Not Given ACHS BALDO Protocol Lactulose 20 gm 10/20/21 16:31 Lactulose 20 Gm/30 Ml Oral Liqd PO Q8H PRN Constipation Lorazepam 4 mg 10/21/21 09:05 Lorazepam 2 Mg Tab PO Q1H PRN CIWA-Ar 16-25 Lorazepam 4 mg 10/21/21 09:05 Lorazepam 2 Mg/Ml Vial IV Q15MIN PRN CIWA-Ar >25 Multivitamins 1 each 10/21/21 10:00 10/21/21 09:33 Multivitamins ,Therapeutic Tab PO 1 each DAILY BALDO Administration Ondansetron HCl 4 mg 10/20/21 05:56 10/20/21 18:11 Ondansetron 4 Mg/2 Ml Inj IV 4 mg Q8H PRN Administration Nausea And Vomiting Pantoprazole Sodium 40 mg 10/21/21 07:30 10/21/21 09:33 Pantoprazole 40 Mg Tab PO 40 mg QDAC BALDO Administration Sodium Chloride 10 ml 10/20/21 10:00 10/21/21 09:33 Sodium Chloride 0.9% 10 Ml Flush Syringe IV 10 ml BID BALDO Administration Sodium Chloride 10 ml 10/20/21 05:56 Sodium Chloride 0.9% 10 Ml Flush Syringe IV PRN PRN LINE FLUSH Nutrition/Malnutrition Assess - Dietary Evaluation Nutrition/Malnutrition Findings: Nutrition Notes Start: 10/20/21 12:12 Freq: Status: Active Protocol: Document 10/20/21 12:12 JONO (Rec: 10/20/21 12:18 JONO [email or web address]) Nutrition Notes Need for Assessment generated from: MD Order,Education Initial or Follow up Assessment Current Diagnosis Diabetes Other Pertinent Diagnosis AMS Current Diet Cardiac/Consistent CHO Labs/Tests Reviewed Pertinent Medications Folvite, MVI, Thiamine+Folic acid+MVI gtt Height 6 ft Weight 90.718 kg Bertrand Body Weight (kg) 80.90 BMI 27.1 Weight Status Overweight Subjective/Other Information RD consulted for diet education. Pt not appropriate for diet education at this time. Per records, pt been nonverbal for last three days and has refused to get OOB. PMHx includes depression and EtOH dependence. 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 No Is Patient Ambulatory and/or Out of Bed No REE-([facility]-confined to bed) 1997.708 Calculation Used for Recommendations [facility] Additional Notes Pro needs 1-1.2g/k-109g/ day Fluid needs 1ml/kcal Nutrition Intervention Change Diet Order: Continue current diet order Goal #1 PO intake to meet at least 75% energy and pro needs Anticipated Discharge Needs: Continue heart-healthy, CHO- controlled diet Follow-Up By: 10/23/21 Additional Comments F/U: intakes, need for ONS
--- NOTE | 2021-10-21 17:57 | Progress Note ---
Assessment and Plan 1. Abnormal liver enzymesetiology unclear. Hepatitis serologies negative. Liver enzymes relatively stable. Liver lesion noted on imaging. Need to exclude neoplastic process. Check MRI Follow-up on alpha-fetoprotein level 2. Liver lesionMRI and alpha-fetoprotein level Subjective Date of service: 10/21/21 Interval history: Patient lying in bed, appears comfortable. Knows he is at the hospital and that the year is 2021. Objective - Constitutional Vitals: Vital Signs - 12hr 10/21/21 10/21/21 10:02 10:44 Temperature 97.6 F Pulse Rate 106 H Respiratory 18 18 Rate Blood Pressure 120/68 O2 Sat by Pulse 98 96 Oximetry General appearance: Present: no acute distress - EENT Eyes: PERRL, EOM intact ENT: hearing intact - Respiratory Respiratory effort: normal - Cardiovascular Rhythm: regular Heart Sounds: Present: S1 & S2 - Gastrointestinal General gastrointestinal: Present: soft, non-tender - Labs CBC & Chem 7: 10/21/21 07:49 10/21/21 07:49 Labs: Abnormal lab results 10/20/21 10/20/21 10/21/21 Range/Units 22:33 23:28 07:49 MCV 97 H (84-94) fl MCH 33 H (28-32) pg Lymph % (Auto) 13.3 L (13.4-35.0) % [place] % (Auto) 9.0 H (0.0-7.3) % Lymph # (Auto) 1.1 L (1.2-5.4) K/mm3 Seg Neutrophils % 73.8 H (40.0-70.0) % Sodium (137-145) mmol/L Carbon Dioxide (22-30) mmol/L Creatinine (0.8-1.3) mg/dL Glucose (75-100) mg/dL POC Glucose 159 H (70-105) mg/dL Lactic Acid 3.30 H* (0.7-2.0) mmol/L Total Bilirubin (0.1-1.2) mg/dL AST (5-40) units/L ALT (7-56) units/L Alkaline Phosphatase (35-129) units/L Albumin (3.9-5) g/dL 10/21/21 10/21/21 10/21/21 Range/Units 07:49 07:49 07:56 MCV (84-94) fl MCH (28-32) pg Lymph % (Auto) (13.4-35.0) % [place] % (Auto) (0.0-7.3) % Lymph # (Auto) (1.2-5.4) K/mm3 Seg Neutrophils % (40.0-70.0) % Sodium 135 L (137-145) mmol/L Carbon Dioxide 20 L (22-30) mmol/L Creatinine 0.7 L (0.8-1.3) mg/dL Glucose 134 H (75-100) mg/dL POC Glucose 141 H (70-105) mg/dL Lactic Acid 2.30 H* (0.7-2.0) mmol/L Total Bilirubin 4.30 H (0.1-1.2) mg/dL AST 133 H (5-40) units/L ALT 102 H (7-56) units/L Alkaline Phosphatase 565 H (35-129) units/L Albumin 3.4 L (3.9-5) g/dL 10/21/21 10/21/21 Range/Units 11:50 13:56 MCV (84-94) fl MCH (28-32) pg Lymph % (Auto) (13.4-35.0) % [place] % (Auto) (0.0-7.3) % Lymph # (Auto) (1.2-5.4) K/mm3 Seg Neutrophils % (40.0-70.0) % Sodium (137-145) mmol/L Carbon Dioxide (22-30) mmol/L Creatinine (0.8-1.3) mg/dL Glucose (75-100) mg/dL POC Glucose 225 H (70-105) mg/dL Lactic Acid 2.40 H* (0.7-2.0) mmol/L Total Bilirubin (0.1-1.2) mg/dL AST (5-40) units/L ALT (7-56) units/L Alkaline Phosphatase (35-129) units/L Albumin (3.9-5) g/dL Medications & Allergies - Medications Allergies/Adverse Reactions: Allergies No Known Allergies Allergy (Verified 10/20/21 06:04) Active Medications: Generic Name Dose Route Start Last Admin Trade Name Freq PRN Reason Stop Dose Admin Acetaminophen 650 mg 10/20/21 05:56 Acetaminophen 325 Mg Tab PO Q4H PRN Pain MILD(1-3)/Fever >100.5/CALLEJAS Albuterol 2.5 mg 10/20/21 05:56 Albuterol 2.5 Mg/3 Ml Nebu IH Q3HRT PRN Shortness Of Breath Chlordiazepoxide HCl 25 mg 10/20/21 22:00 10/20/21 22:13 Chlordiazepoxide 25 Mg Cap PO 10/22/21 22:01 25 mg QHS BALDO Administration Dextrose 50 ml 10/20/21 05:58 Dextrose 50% In Water (25gm) 50 Ml Syringe IV Q30MIN PRN Hypoglycemia Protocol Folic Acid 1 mg 10/21/21 10:00 10/21/21 09:33 Folic Acid 1 Mg Tab PO 1 mg DAILY BALDO Administration Ceftriaxone Sodium 2 gm in 100 mls @ 200 mls/hr 10/20/21 07:00 10/21/21 07:07 Rocephin/Ns 2 Gm/100 Ml IV 200 mls/hr Q24H BALDO Administration Protocol Insulin Human Lispro 0 unit 10/20/21 07:30 10/21/21 17:04 Insulin Lispro 100 Unit/Ml SUB-Q 3 unit ACHS BALDO Administration Protocol Lactulose 20 gm 10/20/21 16:31 Lactulose 20 Gm/30 Ml Oral Liqd PO Q8H PRN Constipation Lorazepam 4 mg 10/21/21 09:05 Lorazepam 2 Mg Tab PO Q1H PRN CIWA-Ar 16-25 Lorazepam 4 mg 10/21/21 09:05 Lorazepam 2 Mg/Ml Vial IV Q15MIN PRN CIWA-Ar >25 Multivitamins 1 each 10/21/21 10:00 10/21/21 09:33 Multivitamins ,Therapeutic Tab PO 1 each DAILY BALDO Administration Ondansetron HCl 4 mg 10/20/21 05:56 10/20/21 18:11 Ondansetron 4 Mg/2 Ml Inj IV 4 mg Q8H PRN Administration Nausea And Vomiting Pantoprazole Sodium 40 mg 10/21/21 07:30 10/21/21 09:33 Pantoprazole 40 Mg Tab PO 40 mg QDAC BALDO Administration Sodium Chloride 10 ml 10/20/21 10:00 10/21/21 09:33 Sodium Chloride 0.9% 10 Ml Flush Syringe IV 10 ml BID BALDO Administration Sodium Chloride 10 ml 10/20/21 05:56 Sodium Chloride 0.9% 10 Ml Flush Syringe IV PRN PRN LINE FLUSH HEART Score - HEART Score Troponin: Troponin T 0.020 ng/mL (0.00-0.029) 10/19/21 23:10
[2021-10-21] MEDS: chlordiazePOXIDE 25 MG CAP PO SCH (21:37)
[2021-10-21] MEDS ORDERED: LACTATED RINGERS 500 ML IV ONE (23:26)
[2021-10-22 08:37] LABS: Alanine Aminotransferase 109 units/L (7-56); Albumin 3.3 g/dL (3.9-5); Blood Urea Nitrogen 15 mg/dL (9-20); Calcium 8.6 mg/dL (8.4-10.2); Hemolysis Index 2
[2021-10-22 08:38] LABS: BUN/Creatinine Ratio 25
--- NOTE | 2021-10-22 09:13 | Gastroenterology Progress Note ---
Assessment and Plan Awaiting MRI and AFP, with Liver lesion and venous thrombus, primary hepatic malignancy is relatively high on the differential diagnosis though not yet confirmed. Rest of Ddx venous malformation, metastatic lesion, etc Ammonia level normal so hepatic encephalopathy lower on the differential diagnosis for the etiology of his altered mental status on admission - Patient Problems (1) Alcoholic cirrhosis of liver Current Visit: Yes Status: Acute (2) Altered mental status Current Visit: Yes Status: Acute (3) Liver mass Current Visit: Yes Status: Acute (4) Portal vein thrombosis Current Visit: Yes Status: Acute (5) Transaminitis Current Visit: Yes Status: Acute Subjective Date of service: 10/22/21 Principal diagnosis: Liver mass, altered mental status Interval history: Patient very lethargic today difficult to wake up Objective - Constitutional Vitals: Temp Pulse Resp BP Pulse Ox 99.0 F 98 H 18 145/86 96 10/21/21 16:24 10/21/21 21:52 10/21/21 23:00 10/21/21 16:24 10/21/21 23:00 General appearance: no acute distress - Respiratory Respiratory effort: normal - Cardiovascular Rhythm: regular - Gastrointestinal General gastrointestinal: Present: soft - Integumentary Integumentary: Present: dry - Labs CBC & Chem 7: 10/21/21 07:49 10/22/21 07:38 Labs: Laboratory Results - last 24 hr 10/21/21 10/21/21 10/21/21 07:49 07:56 11:50 Sodium Potassium Chloride Carbon Dioxide Anion Gap BUN Creatinine Estimated GFR BUN/Creatinine Ratio Glucose POC Glucose 141 H 225 H Lactic Acid Calcium Total Bilirubin AST ALT Alkaline Phosphatase Total Protein Albumin Albumin/Globulin Ratio Hepatitis A IgM Ab Non-reactive Hep Bs Antigen Non-reactive Hep B Core IgM Ab Non-reactive Hepatitis C Antibody Non-reactive 10/21/21 10/21/21 10/21/21 13:56 16:27 19:43 Sodium Potassium Chloride Carbon Dioxide Anion Gap BUN Creatinine Estimated GFR BUN/Creatinine Ratio Glucose POC Glucose 212 H Lactic Acid 2.40 H* 2.20 H* Calcium Total Bilirubin AST ALT Alkaline Phosphatase Total Protein Albumin Albumin/Globulin Ratio Hepatitis A IgM Ab Hep Bs Antigen Hep B Core IgM Ab Hepatitis C Antibody 10/21/21 10/22/21 10/22/21 20:54 07:38 07:38 Sodium 133 L Potassium 3.7 Chloride 99.5 Carbon Dioxide 19 L Anion Gap 18 BUN 15 Creatinine 0.6 L Estimated GFR > 60 BUN/Creatinine Ratio 25 Glucose 162 H POC Glucose 189 H Lactic Acid 1.90 Calcium 8.6 Total Bilirubin 4.30 H AST 154 H ALT 109 H Alkaline Phosphatase 561 H Total Protein 6.9 Albumin 3.3 L Albumin/Globulin Ratio 0.9 Hepatitis A IgM Ab Hep Bs Antigen Hep B Core IgM Ab Hepatitis C Antibody
[2021-10-22] MEDS: PANTOPRAZOLE 40 MG TAB PO SCH (09:56)
[2021-10-22] MEDS: MULTIVITAMINS ,THERAPEUTIC TAB PO SCH (09:56)
[2021-10-22] MEDS: FOLIC ACID 1 MG TAB PO SCH (09:56)
[2021-10-22] MEDS: cefTRIAXone/NS 2 GM/100 ML 2 GM/100 ML BAG IV SCH (09:57)
[2021-10-22] MEDS: INSULIN LISPRO 100 UNIT/ML SUB-Q SCH ×3 (09:57→18:26)
--- NOTE | 2021-10-22 12:57 | Progress Note ---
Assessment and Plan Assessment and plan: #Acute metabolic encephalopathyworsening #Hepatic encephalopathyruled out Unremarkable CT head (10/19/2021), chest x-ray, and MRI brain without contrast (10/20/2021) Unremarkable ammonia making hepatic encephalopathy lower on the differential Neurology consulted; appreciate recs. Pending MRI lumbar spine for evaluation of right foot drop #Lactic acidosisresolved Lactic acid 2.7--> 3.3--> 2.8-->2.3-->1.9. Continue to trend until unremarkable. Likely secondary to elevated transaminases. Pending blood cultures. Unremarkable urinalysis. #Elevated transaminases-improving #Decompensated alcoholic cirrhosis #Nodular mass on left hepatic lobe #Partial thrombosis of main portal vein T bilirubin 5.5, AST 123, ALT 97, alkaline phosphatase 637 CT abdomen and pelvis with contrast (10/20/2021) revealing cirrhosis of the liver with mild splenomegaly and ascites; 3 cm nodular density in the left hepatic lobe; partial thrombosis of the main portal vein and proximal right and left portal vein; poor opacification of the superior mesenteric vein which is suspicious for thrombosis; no evidence of bowel obstruction or obvious CT findings of ischemia at this time Gastroenterology consulted; appreciate recs Pending MRI liver to evaluate left hepatic lesion. Pending alpha-fetoprotein. Continue lactulose 20 g every 8 hours #Alcohol dependence - Counseled patient on the importance of ETOH cessation. Assess patient's current ETOH consumption. Assisted with trying to arrange resources for patient to adequately work towards ETOH cessation. Patient expresses understanding. Starting p.o. thiamine, folic acid, and multivitamin. -Time: +15 mins #Mild protein caloric malnutrition Albumin 3.6 Continue dietary supplementation #Advanced care planning -Disease education conducted, care plan discussed, diagnoses discussed, prognosis discussed, and patient acknowledges understanding with care plan -Time: +30 min Disposition Plan: Continue medical management Total Time Spent with Patient (Minutes): 45 minutes History Interval history: No acute events overnight. Hospitalist Physical - Constitutional Vitals: Temp Pulse Resp BP Pulse Ox 99.0 F 98 H 18 145/86 96 10/21/21 16:24 10/21/21 21:52 10/22/21 10:57 10/21/21 16:24 10/22/21 10:57 General appearance: Present: no acute distress, other (Very lethargic and difficult to arouse) - EENT Eyes: Present: PERRL, EOM intact ENT: hearing intact, clear oral mucosa, edentulous - Neck Neck: Present: supple, normal ROM - Respiratory Respiratory effort: normal Respiratory: bilateral: CTA - Cardiovascular Rhythm: regular Heart Sounds: Present: S1 & S2 - Extremities Extremities: no ischemia, pulses intact, pulses symmetrical, No edema, normal temperature, normal color Peripheral Pulses: within normal limits - Abdominal General gastrointestinal: soft, non-tender, non-distended, normal bowel sounds - Integumentary Integumentary: Present: clear, warm, dry - Psychiatric Psychiatric: cooperative, other (Unable to fully assess given patient's lethargy) - Neurologic Neurologic: CNII-XII intact - Allied Health Allied health notes reviewed: nursing HEART Score - HEART Score Troponin: Troponin T 0.020 ng/mL (0.00-0.029) 10/19/21 23:10 Results - Labs CBC & Chem 7: 10/21/21 07:49 10/22/21 07:38 Labs: Laboratory Last Values WBC 8.5 K/mm3 (4.5-11.0) 10/21/21 07:49 RBC 4.16 M/mm3 (3.65-5.03) 10/21/21 07:49 Hgb 13.6 gm/dl (11.8-15.2) 10/21/21 07:49 Hct 40.6 % (35.5-45.6) 10/21/21 07:49 MCV 97 fl (84-94) H 10/21/21 07:49 MCH 33 pg (28-32) H 10/21/21 07:49 MCHC 34 % (32-34) 10/21/21 07:49 RDW 15.2 % (13.2-15.2) 10/21/21 07:49 Plt Count 149 K/mm3 (140-440) 10/21/21 07:49 Lymph % (Auto) 13.3 % (13.4-35.0) L 10/21/21 07:49 [place] % (Auto) 9.0 % (0.0-7.3) H 10/21/21 07:49 Eos % (Auto) 3.6 % (0.0-4.3) 10/21/21 07:49 Baso % (Auto) 0.3 % (0.0-1.8) 10/21/21 07:49 Lymph # (Auto) 1.1 K/mm3 (1.2-5.4) L 10/21/21 07:49 [place] # (Auto) 0.8 K/mm3 (0.0-0.8) 10/21/21 07:49 Eos # (Auto) 0.3 K/mm3 (0.0-0.4) 10/21/21 07:49 Baso # (Auto) 0.0 K/mm3 (0.0-0.1) 10/21/21 07:49 Seg Neutrophils % 73.8 % (40.0-70.0) H 10/21/21 07:49 Seg Neutrophils # 6.3 K/mm3 (1.8-7.7) 10/21/21 07:49 PT 15.3 Sec. (12.2-14.9) H 10/19/21 23:10 INR 1.09 (0.87-1.13) 10/19/21 23:10 Sodium 133 mmol/L (137-145) L 10/22/21 07:38 Potassium 3.7 mmol/L (3.6-5.0) 10/22/21 07:38 Chloride 99.5 mmol/L (98-107) 10/22/21 07:38 Carbon Dioxide 19 mmol/L (22-30) L 10/22/21 07:38 Anion Gap 18 mmol/L 10/22/21 07:38 BUN 15 mg/dL (9-20) 10/22/21 07:38 Creatinine 0.6 mg/dL (0.8-1.3) L 10/22/21 07:38 Estimated GFR > 60 ml/min 10/22/21 07:38 BUN/Creatinine Ratio 25 % 10/22/21 07:38 Glucose 162 mg/dL (75-100) H 10/22/21 07:38 POC Glucose 189 mg/dL (70-105) H 10/21/21 20:54 Lactic Acid 1.90 mmol/L (0.7-2.0) 10/22/21 07:38 Calcium 8.6 mg/dL (8.4-10.2) 10/22/21 07:38 Total Bilirubin 4.30 mg/dL (0.1-1.2) H 10/22/21 07:38 AST 154 units/L (5-40) H 10/22/21 07:38 ALT 109 units/L (7-56) H 10/22/21 07:38 Alkaline Phosphatase 561 units/L (35-129) H 10/22/21 07:38 Ammonia 28.0 umol/L (25-60) 10/20/21 00:28 Total Creatine Kinase 313 units/L (55-170) H 10/19/21 23:10 Troponin T 0.020 ng/mL (0.00-0.029) 10/19/21 23:10 Total Protein 6.9 g/dL (6.3-8.2) 10/22/21 07:38 Albumin 3.3 g/dL (3.9-5) L 10/22/21 07:38 Albumin/Globulin Ratio 0.9 % 10/22/21 07:38 Prealbumin 0.106 g/L (0.200-0.400) L 10/20/21 16:00 Vitamin B12 1141 pg/mL (211-911) H 10/20/21 16:00 Folate 20.00 ng/mL (7.3-26.0) 10/20/21 16:00 TSH 0.864 mlU/mL (0.270-4.200) 10/20/21 16:00 Urine Color [place] (Yellow) 10/20/21 03:17 Urine Turbidity Clear (Clear) 10/20/21 03:17 Specific [place] (Man) 1.025 (1.003-1.030) 10/20/21 03:17 Ur Protein (Man) 1+ mg/dL (Negative) 10/20/21 03:17 Ur Ketones (Man) 1+ (Negative) 10/20/21 03:17 Ur Nitrite (Man) Negative (Negative) 10/20/21 03:17 Urine Bilirubin (Man) Small (Negative) 10/20/21 03:17 Urine Ictotest Positive (Negative) 10/20/21 03:17 Leukocyte Esterase (Man) Negative (Negative) 10/20/21 03:17 Urine WBC (Auto) 6.0 /HPF (0.0-6.0) 10/20/21 03:17 Urine RBC (Auto) 3.0 /HPF (0.0-6.0) 10/20/21 03:17 U Epithel Cells (Auto) 3.0 /HPF (0-13.0) 10/20/21 03:17 Urine RBC (Manual) Negative (Negative) 10/20/21 03:17 Urine Mucus Few /HPF 10/20/21 03:17 Salicylates < 0.3 mg/dL (2.8-20.0) L 10/19/21 23:10 Urine Opiates Screen Negative 10/20/21 03:17 Urine Methadone Screen Negative 10/20/21 03:17 Acetaminophen 5.0 ug/mL (10.0-30.0) L 10/19/21 23:10 Ur Barbiturates Screen Negative 10/20/21 03:17 Ur Phencyclidine Scrn Negative 10/20/21 03:17 Ur Amphetamines Screen Negative 10/20/21 03:17 U Benzodiazepines Scrn Negative 10/20/21 03:17 Urine Cocaine Screen Negative 10/20/21 03:17 U Marijuana (THC) Screen Negative 10/20/21 03:17 Drugs of Abuse Note Disclamer 10/20/21 03:17 Plasma/Serum Alcohol < 0.01 % (0-0.07) 10/19/21 23:10 Syphilis IgG/IgM Ab Nonreactive (NonReactive) 10/20/21 16:00 Hepatitis A IgM Ab Non-reactive (NonReactive) 10/21/21 07:49 Hep Bs Antigen Non-reactive (Negative) 10/21/21 07:49 Hep B Core IgM Ab Non-reactive (NonReactive) 10/21/21 07:49 Hepatitis C Antibody Non-reactive (NonReactive) 10/21/21 07:49 Bradford/IV: Voiding Method Condom Catheter Active Medications - Current Medications Current Medications: Generic Name Dose Route Start Last Admin Trade Name Freq PRN Reason Stop Dose Admin Acetaminophen 650 mg 10/20/21 05:56 Acetaminophen 325 Mg Tab PO Q4H PRN Pain MILD(1-3)/Fever >100.5/CALLEJAS Albuterol 2.5 mg 10/20/21 05:56 Albuterol 2.5 Mg/3 Ml Nebu IH Q3HRT PRN Shortness Of Breath Chlordiazepoxide HCl 25 mg 10/20/21 22:00 10/21/21 21:37 Chlordiazepoxide 25 Mg Cap PO 10/22/21 22:01 25 mg QHS BALDO Administration Dextrose 50 ml 10/20/21 05:58 Dextrose 50% In Water (25gm) 50 Ml Syringe IV Q30MIN PRN Hypoglycemia Protocol Folic Acid 1 mg 10/21/21 10:00 10/22/21 09:56 Folic Acid 1 Mg Tab PO 1 mg DAILY BALDO Administration Ceftriaxone Sodium 2 gm in 100 mls @ 200 mls/hr 10/20/21 07:00 10/22/21 09:57 Rocephin/Ns 2 Gm/100 Ml IV 200 mls/hr Q24H BALDO Administration Protocol Insulin Human Lispro 0 unit 10/20/21 07:30 10/22/21 12:41 Insulin Lispro 100 Unit/Ml SUB-Q Not Given ACHS BALDO Protocol Lactulose 20 gm 10/20/21 16:31 Lactulose 20 Gm/30 Ml Oral Liqd PO Q8H PRN Constipation Lorazepam 4 mg 10/21/21 09:05 10/22/21 04:44 Lorazepam 2 Mg Tab PO 4 mg Q1H PRN Administration CIWA-Ar 16-25 Lorazepam 4 mg 10/21/21 09:05 Lorazepam 2 Mg/Ml Vial IV Q15MIN PRN CIWA-Ar >25 Multivitamins 1 each 10/21/21 10:00 10/22/21 09:56 Multivitamins ,Therapeutic Tab PO 1 each DAILY BALDO Administration Ondansetron HCl 4 mg 10/20/21 05:56 10/20/21 18:11 Ondansetron 4 Mg/2 Ml Inj IV 4 mg Q8H PRN Administration Nausea And Vomiting Pantoprazole Sodium 40 mg 10/21/21 07:30 10/22/21 09:56 Pantoprazole 40 Mg Tab PO 40 mg QDAC BALDO Administration Sodium Chloride 10 ml 10/20/21 10:00 10/22/21 09:57 Sodium Chloride 0.9% 10 Ml Flush Syringe IV 10 ml BID BALDO Administration Sodium Chloride 10 ml 10/20/21 05:56 Sodium Chloride 0.9% 10 Ml Flush Syringe IV PRN PRN LINE FLUSH Nutrition/Malnutrition Assess - Dietary Evaluation Nutrition/Malnutrition Findings: Nutrition Notes Start: 10/20/21 12:12 Freq: Status: Active Protocol: Document 10/20/21 12:12 JONO (Rec: 10/20/21 12:18 NHALL [id number]) Nutrition Notes Need for Assessment generated from: MD Order,Education Initial or Follow up Assessment Current Diagnosis Diabetes Other Pertinent Diagnosis AMS Current Diet Cardiac/Consistent CHO Labs/Tests Reviewed Pertinent Medications Folvite, MVI, Thiamine+Folic acid+MVI gtt Height 6 ft Weight 90.718 kg [place] Body Weight (kg) 80.90 BMI 27.1 Weight Status Overweight Subjective/Other Information RD consulted for diet education. Pt not appropriate for diet education at this time. Per records, pt been nonverbal for last three days and has refused to get OOB. PMHx includes depression and EtOH dependence. Burn Absent Trauma Absent Skin Integrity/Comment No skin breakdown reported Minimum of two criteria No Reduced Customer Solutions Supervisor Strength Measurably Reduced (severe) #1 Nutrition Diagnosis Predicted suboptimal energy intake Etiology hx of EtOH dependence As Evidenced by Signs and Symptoms pt with AMS Is patient on ventilator? No Is Patient Ambulatory and/or Out of Bed No REE-([facility]-confined to bed) 1997.708 Calculation Used for Recommendations [facility] Additional Notes Pro needs 1-1.2g/k-109g/ day Fluid needs 1ml/kcal Nutrition Intervention Change Diet Order: Continue current diet order Goal #1 PO intake to meet at least 75% energy and pro needs Anticipated Discharge Needs: Continue heart-healthy, CHO- controlled diet Follow-Up By: 10/23/21 Additional Comments F/U: intakes, need for ONS
[2021-10-22] MEDS: chlordiazePOXIDE 25 MG CAP PO SCH (21:31)
[2021-10-23] MEDS: INSULIN LISPRO 100 UNIT/ML SUB-Q SCH ×5 (03:50→22:41)
[2021-10-23 07:25] LABS: Alanine Aminotransferase 103 units/L (7-56); Albumin 3.2 g/dL (3.9-5); Blood Urea Nitrogen 16 mg/dL (9-20); Calcium 8.5 mg/dL (8.4-10.2); Hemolysis Index 13
[2021-10-23 07:40] LABS: BUN/Creatinine Ratio 23
[2021-10-23] MEDS: PANTOPRAZOLE 40 MG TAB PO SCH (08:47)
[2021-10-23] MEDS: MULTIVITAMINS ,THERAPEUTIC TAB PO SCH (10:56)
[2021-10-23] MEDS: FOLIC ACID 1 MG TAB PO SCH (10:56)
--- NOTE | 2021-10-23 11:05 | Gastroenterology Progress Note ---
Assessment and Plan Awaiting MRI and AFP, with Liver lesion and venous thrombus, primary hepatic malignancy is relatively high on the differential diagnosis though not yet confirmed. Rest of Ddx venous malformation, metastatic lesion, etc Ammonia level normal so hepatic encephalopathy lower on the differential diagnosis for the etiology of his altered mental status on admission, Ddx infection, neg MRI brain so met to brain unlikely, etc - Patient Problems (1) Alcoholic cirrhosis of liver Current Visit: Yes Status: Acute (2) Altered mental status Current Visit: Yes Status: Acute (3) Liver mass Current Visit: Yes Status: Acute (4) Portal vein thrombosis Current Visit: Yes Status: Acute (5) Transaminitis Current Visit: Yes Status: Acute Subjective Date of service: 10/23/21 Principal diagnosis: Liver mass, altered mental status Interval history: Patient lethargic today and confused Lying naked in bed when I came in, I covered him up He is not oriented to place or year Objective - Constitutional Vitals: Temp Pulse Resp BP Pulse Ox 98.4 F 103 H 18 120/82 97 10/23/21 04:40 10/23/21 04:40 10/23/21 04:40 10/23/21 04:40 10/23/21 04:40 General appearance: no acute distress - EENT Eyes: EOM intact - Respiratory Respiratory effort: normal - Cardiovascular Rhythm: regular - Gastrointestinal General gastrointestinal: Present: soft - Labs CBC & Chem 7: 10/21/21 07:49 10/23/21 06:09 Labs: Laboratory Results - last 24 hr 10/22/21 10/22/21 10/22/21 07:25 11:09 16:17 Sodium Potassium Chloride Carbon Dioxide Anion Gap BUN Creatinine Estimated GFR BUN/Creatinine Ratio Glucose POC Glucose 160 H 151 H 160 H Calcium Total Bilirubin AST ALT Alkaline Phosphatase Total Protein Albumin Albumin/Globulin Ratio 10/22/21 10/23/21 21:24 06:09 Sodium 135 L Potassium 4.0 Chloride 100.3 Carbon Dioxide 20 L Anion Gap 19 BUN 16 Creatinine 0.7 L Estimated GFR > 60 BUN/Creatinine Ratio 23 Glucose 145 H POC Glucose 155 H Calcium 8.5 Total Bilirubin 3.80 H AST 142 H ALT 103 H Alkaline Phosphatase 567 H Total Protein 7.0 Albumin 3.2 L Albumin/Globulin Ratio 0.8
--- NOTE | 2021-10-23 11:17 | Progress Note ---
Assessment and Plan Assessment and plan: #Acute metabolic encephalopathyfluctuating #Hepatic encephalopathyruled out Unremarkable CT head (10/19/2021), chest x-ray, and MRI brain without contrast (10/20/2021) Unremarkable ammonia making hepatic encephalopathy lower on the differential Neurology consulted; appreciate recs. 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 #Lactic acidosisresolved Lactic acid 2.7--> 3.3--> 2.8-->2.3-->1.9. Continue to trend until unremarkable. Likely secondary to elevated transaminases. Pending blood cultures. Unremarkable urinalysis. #Elevated transaminases-improving #Decompensated alcoholic cirrhosis #Nodular mass on left hepatic lobe #Partial thrombosis of main portal vein T bilirubin 5.5, AST 123, ALT 97, alkaline phosphatase 637 CT abdomen and pelvis with contrast (10/20/2021) revealing cirrhosis of the liver with mild splenomegaly and ascites; 3 cm nodular density in the left hepatic lobe; partial thrombosis of the main portal vein and proximal right and left portal vein; poor opacification of the superior mesenteric vein which is suspici ous for thrombosis; no evidence of bowel obstruction or obvious CT findings of ischemia at this time Gastroenterology consulted; appreciate recs Pending MRI liver to evaluate left hepatic lesion. Pending alpha-fetoprotein. Continue lactulose 20 g every 8 hours #Alcohol dependence - Counseled patient on the importance of ETOH cessation. Assess patient's current ETOH consumption. Assisted with trying to arrange resources for patient to adequately work towards ETOH cessation. Patient expresses understanding. Starting p.o. thiamine, folic acid, and multivitamin. -Time: +15 mins #Mild protein caloric malnutrition Albumin 3.6 Continue dietary supplementation #Advanced care planning -Disease education conducted, care plan discussed, diagnoses discussed, prognosis discussed, and patient acknowledges understanding with care plan -Time: +30 min Disposition Plan: continue medical management Total Time Spent with Patient (Minutes): 45 minutes History Interval history: No acute events overnight. Hospitalist Physical - Constitutional Vitals: Temp Pulse Resp BP Pulse Ox 98.4 F 103 H 18 120/82 97 10/23/21 04:40 10/23/21 04:40 10/23/21 04:40 10/23/21 04:40 10/23/21 04:40 General appearance: Present: no acute distress, other (More alert this morning) - EENT Eyes: Present: PERRL, EOM intact ENT: hearing intact, clear oral mucosa, poor dentition, edentulous - Neck Neck: Present: supple, normal ROM - Respiratory Respiratory effort: normal Respiratory: bilateral: CTA - Cardiovascular Rhythm: regular Heart Sounds: Present: S1 & S2 - Extremities Extremities: no ischemia, pulses intact, pulses symmetrical, No edema, normal temperature, normal color Peripheral Pulses: within normal limits - Abdominal General gastrointestinal: soft, non-tender, non-distended, normal bowel sounds - Integumentary Integumentary: Present: clear, warm, dry, jaundice - Psychiatric Psychiatric: appropriate mood/affect, cooperative - Neurologic Neurologic: CNII-XII intact, moves all extremities - Allied Health Allied health notes reviewed: nursing HEART Score - HEART Score Troponin: Troponin T 0.020 ng/mL (0.00-0.029) 10/19/21 23:10 Results - Labs CBC & Chem 7: 10/21/21 07:49 10/23/21 06:09 Labs: Laboratory Last Values WBC 8.5 K/mm3 (4.5-11.0) 10/21/21 07:49 RBC 4.16 M/mm3 (3.65-5.03) 10/21/21 07:49 Hgb 13.6 gm/dl (11.8-15.2) 10/21/21 07:49 Hct 40.6 % (35.5-45.6) 10/21/21 07:49 MCV 97 fl (84-94) H 10/21/21 07:49 MCH 33 pg (28-32) H 10/21/21 07:49 MCHC 34 % (32-34) 10/21/21 07:49 RDW 15.2 % (13.2-15.2) 10/21/21 07:49 Plt Count 149 K/mm3 (140-440) 10/21/21 07:49 Lymph % (Auto) 13.3 % (13.4-35.0) L 10/21/21 07:49 [place] % (Auto) 9.0 % (0.0-7.3) H 10/21/21 07:49 Eos % (Auto) 3.6 % (0.0-4.3) 10/21/21 07:49 Baso % (Auto) 0.3 % (0.0-1.8) 10/21/21 07:49 Lymph # (Auto) 1.1 K/mm3 (1.2-5.4) L 10/21/21 07:49 [place] # (Auto) 0.8 K/mm3 (0.0-0.8) 10/21/21 07:49 Eos # (Auto) 0.3 K/mm3 (0.0-0.4) 10/21/21 07:49 Baso # (Auto) 0.0 K/mm3 (0.0-0.1) 10/21/21 07:49 Seg Neutrophils % 73.8 % (40.0-70.0) H 10/21/21 07:49 Seg Neutrophils # 6.3 K/mm3 (1.8-7.7) 10/21/21 07:49 PT 15.3 Sec. (12.2-14.9) H 10/19/21 23:10 INR 1.09 (0.87-1.13) 10/19/21 23:10 Sodium 135 mmol/L (137-145) L 10/23/21 06:09 Potassium 4.0 mmol/L (3.6-5.0) 10/23/21 06:09 Chloride 100.3 mmol/L (98-107) 10/23/21 06:09 Carbon Dioxide 20 mmol/L (22-30) L 10/23/21 06:09 Anion Gap 19 mmol/L 10/23/21 06:09 BUN 16 mg/dL (9-20) 10/23/21 06:09 Creatinine 0.7 mg/dL (0.8-1.3) L 10/23/21 06:09 Estimated GFR > 60 ml/min 10/23/21 06:09 BUN/Creatinine Ratio 23 % 10/23/21 06:09 Glucose 145 mg/dL (75-100) H 10/23/21 06:09 POC Glucose 155 mg/dL (70-105) H 10/22/21 21:24 Lactic Acid 1.90 mmol/L (0.7-2.0) 10/22/21 07:38 Calcium 8.5 mg/dL (8.4-10.2) 10/23/21 06:09 Total Bilirubin 3.80 mg/dL (0.1-1.2) H 10/23/21 06:09 AST 142 units/L (5-40) H 10/23/21 06:09 ALT 103 units/L (7-56) H 10/23/21 06:09 Alkaline Phosphatase 567 units/L (35-129) H 10/23/21 06:09 Ammonia 28.0 umol/L (25-60) 10/20/21 00:28 Total Creatine Kinase 313 units/L (55-170) H 10/19/21 23:10 Troponin T 0.020 ng/mL (0.00-0.029) 10/19/21 23:10 Total Protein 7.0 g/dL (6.3-8.2) 10/23/21 06:09 Albumin 3.2 g/dL (3.9-5) L 10/23/21 06:09 Albumin/Globulin Ratio 0.8 % 10/23/21 06:09 Prealbumin 0.106 g/L (0.200-0.400) L 10/20/21 16:00 Vitamin B12 1141 pg/mL (211-911) H 10/20/21 16:00 Folate 20.00 ng/mL (7.3-26.0) 10/20/21 16:00 TSH 0.864 mlU/mL (0.270-4.200) 10/20/21 16:00 Urine Color [place] (Yellow) 10/20/21 03:17 Urine Turbidity Clear (Clear) 10/20/21 03:17 Specific [place] (Man) 1.025 (1.003-1.030) 10/20/21 03:17 Ur Protein (Man) 1+ mg/dL (Negative) 10/20/21 03:17 Ur Ketones (Man) 1+ (Negative) 10/20/21 03:17 Ur Nitrite (Man) Negative (Negative) 10/20/21 03:17 Urine Bilirubin (Man) Small (Negative) 10/20/21 03:17 Urine Ictotest Positive (Negative) 10/20/21 03:17 Leukocyte Esterase (Man) Negative (Negative) 10/20/21 03:17 Urine WBC (Auto) 6.0 /HPF (0.0-6.0) 10/20/21 03:17 Urine RBC (Auto) 3.0 /HPF (0.0-6.0) 10/20/21 03:17 U Epithel Cells (Auto) 3.0 /HPF (0-13.0) 10/20/21 03:17 Urine RBC (Manual) Negative (Negative) 10/20/21 03:17 Urine Mucus Few /HPF 10/20/21 03:17 Salicylates < 0.3 mg/dL (2.8-20.0) L 10/19/21 23:10 Urine Opiates Screen Negative 10/20/21 03:17 Urine Methadone Screen Negative 10/20/21 03:17 Acetaminophen 5.0 ug/mL (10.0-30.0) L 10/19/21 23:10 Ur Barbiturates Screen Negative 10/20/21 03:17 Ur Phencyclidine Scrn Negative 10/20/21 03:17 Ur Amphetamines Screen Negative 10/20/21 03:17 U Benzodiazepines Scrn Negative 10/20/21 03:17 Urine Cocaine Screen Negative 10/20/21 03:17 U Marijuana (THC) Screen Negative 10/20/21 03:17 Drugs of Abuse Note Disclamer 10/20/21 03:17 Plasma/Serum Alcohol < 0.01 % (0-0.07) 10/19/21 23:10 Syphilis IgG/IgM Ab Nonreactive (NonReactive) 10/20/21 16:00 Hepatitis A IgM Ab Non-reactive (NonReactive) 10/21/21 07:49 Hep Bs Antigen Non-reactive (Negative) 10/21/21 07:49 Hep B Core IgM Ab Non-reactive (NonReactive) 10/21/21 07:49 Hepatitis C Antibody Non-reactive (NonReactive) 10/21/21 07:49 Bradford/IV: Voiding Method Condom Catheter Active Medications - Current Medications Current Medications: Generic Name Dose Route Start Last Admin Trade Name Freq PRN Reason Stop Dose Admin Acetaminophen 650 mg 10/20/21 05:56 Acetaminophen 325 Mg Tab PO Q4H PRN Pain MILD(1-3)/Fever >100.5/CALLEJAS Albuterol 2.5 mg 10/20/21 05:56 Albuterol 2.5 Mg/3 Ml Nebu IH Q3HRT PRN Shortness Of Breath Dextrose 50 ml 10/20/21 05:58 Dextrose 50% In Water (25gm) 50 Ml Syringe IV Q30MIN PRN Hypoglycemia Protocol Folic Acid 1 mg 10/21/21 10:00 10/23/21 10:56 Folic Acid 1 Mg Tab PO 1 mg DAILY BALDO Administration Insulin Human Lispro 0 unit 10/20/21 07:30 10/23/21 08:41 Insulin Lispro 100 Unit/Ml SUB-Q Not Given ACHS BALDO Protocol Lactulose 20 gm 10/20/21 16:31 Lactulose 20 Gm/30 Ml Oral Liqd PO Q8H PRN Constipation Lorazepam 4 mg 10/21/21 09:05 10/22/21 04:44 Lorazepam 2 Mg Tab PO 1 mg Q1H PRN Administration CIWA-Ar 16-25 Lorazepam 4 mg 10/21/21 09:05 Lorazepam 2 Mg/Ml Vial IV Q15MIN PRN CIWA-Ar >25 Multivitamins 1 each 10/21/21 10:00 10/23/21 10:56 Multivitamins ,Therapeutic Tab PO 1 each DAILY BALDO Administration Ondansetron HCl 4 mg 10/20/21 05:56 10/20/21 18:11 Ondansetron 4 Mg/2 Ml Inj IV 4 mg Q8H PRN Administration Nausea And Vomiting Pantoprazole Sodium 40 mg 10/21/21 07:30 10/23/21 08:47 Pantoprazole 40 Mg Tab PO 40 mg QDAC BALDO Administration Sodium Chloride 10 ml 10/20/21 10:00 10/23/21 10:56 Sodium Chloride 0.9% 10 Ml Flush Syringe IV 10 ml BID BALDO Administration Sodium Chloride 10 ml 10/20/21 05:56 Sodium Chloride 0.9% 10 Ml Flush Syringe IV PRN PRN LINE FLUSH Nutrition/Malnutrition Assess - Dietary Evaluation Nutrition/Malnutrition Findings: Nutrition Notes Start: 10/20/21 12: 12 Freq: Status: Active Protocol: Document 10/20/21 12:12 JONO (Rec: 10/20/21 12:18 JONO [id number]) Nutrition Notes Need for Assessment generated from: MD Order,Education Initial or Follow up Assessment Current Diagnosis Diabetes Other Pertinent Diagnosis AMS Current Diet Cardiac/Consistent CHO Labs/Tests Reviewed Pertinent Medications Folvite, MVI, Thiamine+Folic acid+MVI gtt Height 6 ft Weight 90.718 kg [place] Body Weight (kg) 80.90 BMI 27.1 Weight Status Overweight Subjective/Other Information RD consulted for diet education. Pt not appropriate for diet education at this time. Per records, pt been nonverbal for last three days and has refused to get OOB. PMHx includes depression and EtOH dependence. Burn Absent Trauma Absent Skin Integrity/Comment No skin breakdown reported Minimum of two criteria No Reduced Restaurant Inspector Strength Measurably Reduced (severe) #1 Nutrition Diagnosis Predicted suboptimal energy intake Etiology hx of EtOH dependence As Evidenced by Signs and Symptoms pt with AMS Is patient on ventilator? No Is Patient Ambulatory and/or Out of Bed No REE-(Haines-St. Jeor-confined to bed) 1997.708 Calculation Used for Recommendations Haines-St Jeor Additional Notes Pro needs 1-1.2g/k-109g/ day Fluid needs 1ml/kcal Nutrition Intervention Change Diet Order: Continue current diet order Goal #1 PO intake to meet at least 75% energy and pro needs Anticipated Discharge Needs: Continue heart-healthy, CHO- controlled diet Follow-Up By: 10/23/21 Additional Comments F/U: intakes, need for ONS
[2021-10-24 05:00] LABS: Alanine Aminotransferase 102 units/L (7-56); Albumin 3.2 g/dL (3.9-5); BUN/Creatinine Ratio 24; Blood Urea Nitrogen 17 mg/dL (9-20); Calcium 8.7 mg/dL (8.4-10.2); Hemolysis Index 15
[2021-10-24] MEDS: PANTOPRAZOLE 40 MG TAB PO SCH (08:39)
[2021-10-24] MEDS: INSULIN LISPRO 100 UNIT/ML SUB-Q SCH ×4 (08:40→22:49)
[2021-10-24] MEDS: FOLIC ACID 1 MG TAB PO SCH (11:02)
[2021-10-24] MEDS: MULTIVITAMINS ,THERAPEUTIC TAB PO SCH (11:02)
--- NOTE | 2021-10-24 12:26 | Progress Note ---
Assessment and Plan Assessment and plan: #Acute metabolic encephalopathyfluctuating #Hepatic encephalopathyruled out Unremarkable CT head (10/19/2021), chest x-ray, and MRI brain without contrast (10/20/2021) Unremarkable ammonia making hepatic encephalopathy lower on the differential Neurology consulted; appreciate recs. Unable to obtain MRI abdomen due to patient movement. MRI lumbar spine pending #Lactic acidosisresolved Lactic acid 2.7--> 3.3--> 2.8-->2.3-->1.9. Continue to trend until unremarkable. Likely secondary to elevated transaminases. Pending blood cultures. Unrema rkable urinalysis. #Elevated transaminases-improving #Decompensated alcoholic cirrhosis #Nodular mass on left hepatic lobe #Partial thrombosis of main portal vein T bilirubin 5.5, AST 123, ALT 97, alkaline phosphatase 637 CT abdomen and pelvis with contrast (10/20/2021) revealing cirrhosis of the liver with mild splenomegaly and ascites; 3 cm nodular density in the left hepatic lobe; partial thrombosis of the main portal vein and proximal right and left portal vein; poor opacification of the superior mesenteric vein which is suspicious for thrombosis; no evidence of bowel obstruction or obvious CT findings of ischemia at this time Gastroenterology consulted; appreciate recs Pending MRI liver to evaluate left hepatic lesion. Pending alpha-fetoprotein. Continue lactulose 20 g every 8 hours #Alcohol dependence - Counseled patient on the importance of ETOH cessation. Assess patient's cur rent ETOH consumption. Assisted with trying to arrange resources for patient to adequately work towards ETOH cessation. Patient expresses understanding. Starting p.o. thiamine, folic acid, and multivitamin. -Time: +15 mins #Mild protein caloric malnutrition Albumin 3.6 Continue dietary supplementation #Advanced care planning -Disease education conducted, care plan discussed, diagnoses discussed, prognosis discussed, and patient acknowledges understanding with care plan -Time: +30 min History Interval history: Per nursing, abdominal MRI was unable to be performed due to patient moving. Patient states "I will take the test when I feel up to it". He reports no pain at this time and was eating at the time of examination. Hospitalist Physical - Physical exam Narrative exam: GENERAL: Well-developed well-nourished. In no acute distress. HEENT: Edentulous, mild scleral icterus. NECK: Supple. CHEST/LUNGS: CTAB on room air HEART/CARDIOVASCULAR: RRR. No murmur, rubs or gallops appreciated. ABDOMEN: +BS. NT/ND. SKIN: No rashes noted. NEURO: No focal motor deficit. Follows all commands. MUSCULOSKELETAL: No joint effusion EXTREMITIES: No cyanosis, clubbing or edema. PSYCH: Patient answers questions appropriately and answers when he feels like it. - Constitutional Vitals: Temp Pulse Resp BP Pulse Ox 98.0 F 94 H 20 140/88 97 10/24/21 05:28 10/24/21 05:28 10/24/21 05:28 10/24/21 05:28 10/24/21 05:28 General appearance: Present: no acute distress, other (More alert this morning) HEART Score - HEART Score Troponin: Troponin T 0.020 ng/mL (0.00-0.029) 10/19/21 23:10 Results - Labs CBC & Chem 7: 10/21/21 07:49 10/25/21 06:12 Labs: Laboratory Last Values WBC 8.5 K/mm3 (4.5-11.0) 10/21/21 07:49 RBC 4.16 M/mm3 (3.65-5.03) 10/21/21 07:49 Hgb 13.6 gm/dl (11.8-15.2) 10/21/21 07:49 Hct 40.6 % (35.5-45.6) 10/21/21 07:49 MCV 97 fl (84-94) H 10/21/21 07:49 MCH 33 pg (28-32) H 10/21/21 07:49 MCHC 34 % (32-34) 10/21/21 07:49 RDW 15.2 % (13.2-15.2) 10/21/21 07:49 Plt Count 149 K/mm3 (140-440) 10/21/21 07:49 Lymph % (Auto) 13.3 % (13.4-35.0) L 10/21/21 07:49 [place] % (Auto) 9.0 % (0.0-7.3) H 10/21/21 07:49 Eos % (Auto) 3.6 % (0.0-4.3) 10/21/21 07:49 Baso % (Auto) 0.3 % (0.0-1.8) 10/21/21 07:49 Lymph # (Auto) 1.1 K/mm3 (1.2-5.4) L 10/21/21 07:49 Bland # (Auto) 0.8 K/mm3 (0.0-0.8) 10/21/21 07:49 Eos # (Auto) 0.3 K/mm3 (0.0-0.4) 10/21/21 07:49 Baso # (Auto) 0.0 K/mm3 (0.0-0.1) 10/21/21 07:49 Seg Neutrophils % 73.8 % (40.0-70.0) H 10/21/21 07:49 Seg Neutrophils # 6.3 K/mm3 (1.8-7.7) 10/21/21 07:49 PT 15.3 Sec. (12.2-14.9) H 10/19/21 23:10 INR 1.09 (0.87-1.13) 10/19/21 23:10 Sodium 132 mmol/L (137-145) L 10/24/21 03:46 Potassium 3.9 mmol/L (3.6-5.0) 10/24/21 03:46 Chloride 99.7 mmol/L (98-107) 10/24/21 03:46 Carbon Dioxide 19 mmol/L (22-30) L 10/24/21 03:46 Anion Gap 17 mmol/L 10/24/21 03:46 BUN 17 mg/dL (9-20) 10/24/21 03:46 Creatinine 0.7 mg/dL (0.8-1.3) L 10/24/21 03:46 Estimated GFR > 60 ml/min 10/24/21 03:46 BUN/Creatinine Ratio 24 % 10/24/21 03:46 Glucose 153 mg/dL (75-100) H 10/24/21 03:46 POC Glucose 176 mg/dL (70-105) H 10/23/21 22:53 Lactic Acid 1.90 mmol/L (0.7-2.0) 10/22/21 07:38 Calcium 8.7 mg/dL (8.4-10.2) 10/24/21 03:46 Total Bilirubin 3.20 mg/dL (0.1-1.2) H 10/24/21 03:46 AST 135 units/L (5-40) H 10/24/21 03:46 ALT 102 units/L (7-56) H 10/24/21 03:46 Alkaline Phosphatase 541 units/L (35-129) H 10/24/21 03:46 Ammonia 28.0 umol/L (25-60) 10/20/21 00:28 Total Creatine Kinase 313 units/L (55-170) H 10/19/21 23:10 Troponin T 0.020 ng/mL (0.00-0.029) 10/19/21 23:10 Total Protein 6.6 g/dL (6.3-8.2) 10/24/21 03:46 Albumin 3.2 g/dL (3.9-5) L 10/24/21 03:46 Albumin/Globulin Ratio 0.9 % 10/24/21 03:46 Prealbumin 0.106 g/L (0.200-0.400) L 10/20/21 16:00 Vitamin B12 1141 pg/mL (211-911) H 10/20/21 16:00 Folate 20.00 ng/mL (7.3-26.0) 10/20/21 16:00 TSH 0.864 mlU/mL (0.270-4.200) 10/20/21 16:00 Urine Color [place] (Yellow) 10/20/21 03:17 Urine Turbidity Clear (Clear) 10/20/21 03:17 Specific [place] (Man) 1.025 (1.003-1.030) 10/20/21 03:17 Ur Protein (Man) 1+ mg/dL (Negative) 10/20/21 03:17 Ur Ketones (Man) 1+ (Negative) 10/20/21 03:17 Ur Nitrite (Man) Negative (Negative) 10/20/21 03:17 Urine Bilirubin (Man) Small (Negative) 10/20/21 03:17 Urine Ictotest Positive (Negative) 10/20/21 03:17 Leukocyte Esterase (Man) Negative (Negative) 10/20/21 03:17 Urine WBC (Auto) 6.0 /HPF (0.0-6.0) 10/20/21 03:17 Urine RBC (Auto) 3.0 /HPF (0.0-6.0) 10/20/21 03:17 U Epithel Cells (Auto) 3.0 /HPF (0-13.0) 10/20/21 03:17 Urine RBC (Manual) Negative (Negative) 10/20/21 03:17 Urine Mucus Few /HPF 10/20/21 03:17 Salicylates < 0.3 mg/dL (2.8-20.0) L 10/19/21 23:10 Urine Opiates Screen Negative 10/20/21 03:17 Urine Methadone Screen Negative 10/20/21 03:17 Acetaminophen 5.0 ug/mL (10.0-30.0) L 10/19/21 23:10 Ur Barbiturates Screen Negative 10/20/21 03:17 Ur Phencyclidine Scrn Negative 10/20/21 03:17 Ur Amphetamines Screen Negative 10/20/21 03:17 U Benzodiazepines Scrn Negative 10/20/21 03:17 Urine Cocaine Screen Negative 10/20/21 03:17 U Marijuana (THC) Screen Negative 10/20/21 03:17 Drugs of Abuse Note Disclamer 10/20/21 03:17 Plasma/Serum Alcohol < 0.01 % (0-0.07) 10/19/21 23:10 Syphilis IgG/IgM Ab Nonreactive (NonReactive) 10/20/21 16:00 Hepatitis A IgM Ab Non-reactive (NonReactive) 10/21/21 07:49 Hep Bs Antigen Non-reactive (Negative) 10/21/21 07:49 Hep B Core IgM Ab Non-reactive (NonReactive) 10/21/21 07:49 Hepatitis C Antibody Non-reactive (NonReactive) 10/21/21 07:49 [place]/IV: Voiding Method Condom Catheter Active Medications - Current Medications Current Medications: Generic Name Dose Route Start Last Admin Trade Name Freq PRN Reason Stop Dose Admin Acetaminophen 650 mg 10/20/21 05:56 Acetaminophen 325 Mg Tab PO Q4H PRN Pain MILD(1-3)/Fever >100.5/CALLEJAS Albuterol 2.5 mg 10/20/21 05:56 Albuterol 2.5 Mg/3 Ml Nebu IH Q3HRT PRN Shortness Of Breath Dextrose 50 ml 10/20/21 05:58 Dextrose 50% In Water (25gm) 50 Ml Syringe IV Q30MIN PRN Hypoglycemia Protocol Folic Acid 1 mg 10/21/21 10:00 10/24/21 11:02 Folic Acid 1 Mg Tab PO 1 mg DAILY BALDO Administration Insulin Human Lispro 0 unit 10/20/21 07:30 10/24/21 08:40 Insulin Lispro 100 Unit/Ml SUB-Q 2 unit ACHS BALDO Administration Protocol Lactulose 20 gm 10/20/21 16:31 Lactulose 20 Gm/30 Ml Oral Liqd PO Q8H PRN Constipation Lorazepam 4 mg 10/21/21 09:05 10/22/21 04:44 Lorazepam 2 Mg Tab PO 1 mg Q1H PRN Administration CIWA-Ar 16-25 Lorazepam 4 mg 10/21/21 09:05 Lorazepam 2 Mg/Ml Vial IV Q15MIN PRN CIWA-Ar >25 Multivitamins 1 each 10/21/21 10:00 10/24/21 11:02 Multivitamins ,Therapeutic Tab PO 1 each DAILY BALDO Administration Ondansetron HCl 4 mg 10/20/21 05:56 10/20/21 18:11 Ondansetron 4 Mg/2 Ml Inj IV 4 mg Q8H PRN Administration Nausea And Vomiting Pantoprazole Sodium 40 mg 10/21/21 07:30 10/24/21 08:39 Pantoprazole 40 Mg Tab PO 40 mg QDAC BALDO Administration Sodium Chloride 10 ml 10/20/21 10:00 10/24/21 11:02 Sodium Chloride 0.9% 10 Ml Flush Syringe IV 10 ml BID BALDO Administration Sodium Chloride 10 ml 10/20/21 05:56 Sodium Chloride 0.9% 10 Ml Flush Syringe IV PRN PRN LINE FLUSH Nutrition/Malnutrition Assess - Dietary Evaluation Nutrition/Malnutrition Findings: Nutrition Notes Start: 10/20/21 12:12 Freq: Status: Active Protocol: Document 10/23/21 15:16 JONO (Rec: 10/23/21 15:32 JONO [email or web address]) Nutrition Notes Initial or Follow up Reassessment Other Pertinent Diagnosis Acute metabolic encephalopathy , hepatic mass Current Diet Cardiac/Consistent CHO Labs/Tests Na 135 Pertinent Medications Protonix Height 6 ft Weight 90.718 kg [place] Body Weight (kg) 80.90 BMI 27.1 Weight Status Overweight Subjective/Other Information Observed pt eating lunch at time of visit (13:05). He is able to feed himself, but eats very slow. He is pleasantly confused. He has consumed ~40 % of meals since last assessment. He remains on CIWA protocol. Percent of energy/protein needs met: 40% energy 38% pro Burn Absent Trauma Absent #1 Nutrition Diagnosis Predicted suboptimal energy intake,Inadequate protein- energy intake Etiology AMS As Evidenced by Signs and Symptoms PO intakes meeting <50% of estimated energy and pro needs Is patient on ventilator? No Is Patient Ambulatory and/or Out of Bed No REE-([facility]-confined to bed) 1997.708 Calculation Used for Recommendations [facility] Additional Notes Pro needs 1-1.2g/k-109g/ day Fluid needs 1ml/kcal Nutrition Intervention Change Diet Order: Continue current diet order Add Supplement/Snack (indicate name/kcal Glucerna BID /protein ) Provides kCal: 440 Provides Protein (gm) 20 Goal #1 PO intake of meals plus ONS to meet at least 75% energy and pro needs Follow-Up By: 10/27/21 Additional Comments F/U: intakes (meals/ONS)
--- NOTE | 2021-10-24 13:33 | Gastroenterology Progress Note ---
Assessment and Plan Awaiting MRI though appears radiology will not do as patient not staying very still. Still awaiting AFP with Liver lesion and venous thrombus, primary hepatic malignancy is relatively high on the differential diagnosis though not yet confirmed. Rest of Ddx venous malformation, metastatic lesion, etc Ammonia level normal so hepatic encephalopathy lower on the differential diagnosis for the etiology of his altered mental status on admission, Ddx infection, neg MRI brain so met to brain unlikely, etc Recommend neuro and psych eval for AMS Recommend consideration of sedating patient for MRI If malignancy is confirmed please consult oncology Regardless, consider heme consult for management of the thrombus If benign liver lesion patient can just follow-up with us as an outpatient GI will sign off please call us back if we can be of any further assistance - Patient Problems (1) Alcoholic cirrhosis of liver Current Visit: Yes Status: Acute (2) Altered mental status Current Visit: Yes Status: Acute (3) Liver mass Current Visit: Yes Status: Acute (4) Portal vein thrombosis Current Visit: Yes Status: Acute (5) Transaminitis Current Visit: Yes Status: Acute Subjective Date of service: 10/24/21 Principal diagnosis: Liver mass, altered mental status Interval history: Patient lethargic today and confused He is not oriented to place or year Objective - Constitutional Vitals: Temp Pulse Resp BP Pulse Ox 98.0 F 94 H 20 140/88 97 10/24/21 05:28 10/24/21 05:28 10/24/21 05:28 10/24/21 05:28 10/24/21 05:28 General appearance: no acute distress - EENT Eyes: EOM intact - Respiratory Respiratory effort: normal - Gastrointestinal General gastrointestinal: Present: soft - Integumentary Integumentary: Present: dry - Neurologic Neurological: other (no apparent asterixis though he had trouble getting hands in the position to test) - Labs CBC & Chem 7: 10/21/21 07:49 10/24/21 03:46 Labs: Laboratory Results - last 24 hr 10/23/21 10/23/21 10/23/21 07:36 12:09 15:55 Sodium Potassium Chloride Carbon Dioxide Anion Gap BUN Creatinine Estimated GFR BUN/Creatinine Ratio Glucose POC Glucose 134 H 177 H 219 H Calcium Total Bilirubin AST ALT Alkaline Phosphatase Total Protein Albumin Albumin/Globulin Ratio 10/23/21 10/24/21 10/24/21 22:53 03:46 07:37 Sodium 132 L Potassium 3.9 Chloride 99.7 Carbon Dioxide 19 L Anion Gap 17 BUN 17 Creatinine 0.7 L Estimated GFR > 60 BUN/Creatinine Ratio 24 Glucose 153 H POC Glucose 176 H 150 H Calcium 8.7 Total Bilirubin 3.20 H AST 135 H ALT 102 H Alkaline Phosphatase 541 H Total Protein 6.6 Albumin 3.2 L Albumin/Globulin Ratio 0.9 10/24/21 11:10 Sodium Potassium Chloride Carbon Dioxide Anion Gap BUN Creatinine Estimated GFR BUN/Creatinine Ratio Glucose POC Glucose 188 H Calcium Total Bilirubin AST ALT Alkaline Phosphatase Total Protein Albumin Albumin/Globulin Ratio
[2021-10-25 08:06] LABS: Alanine Aminotransferase 106 units/L (7-56); Blood Urea Nitrogen 15 mg/dL (9-20); Calcium 8.5 mg/dL (8.4-10.2); Hemolysis Index 0
[2021-10-25 08:56] LABS: BUN/Creatinine Ratio 21
[2021-10-25] MEDS: INSULIN LISPRO 100 UNIT/ML SUB-Q SCH ×4 (09:42→22:09)
[2021-10-25] MEDS: FOLIC ACID 1 MG TAB PO SCH (09:42)
[2021-10-25] MEDS: PANTOPRAZOLE 40 MG TAB PO SCH (09:43)
[2021-10-25] MEDS: MULTIVITAMINS ,THERAPEUTIC TAB PO SCH (09:43)
--- NOTE | 2021-10-25 09:55 | Magnetic Resonance Report ---
MRI of lumbar spine with and without contrast INDICATION: Right foot drop TECHNIQUE: Axial sagittal images were performed with and without contrast FINDINGS: Discogenic degenerative changes seen throughout spine with mild curvature the spine. Endpla te changes are seen throughout. Conus is unremarkable. L1-L2: Advanced endplate change with disc desiccation. Disc osteophyte with moderate right lateral re cess narrowing right neuroforaminal narrowing. Mild canal narrowing. L2-L3: Disc desiccation with advanced endplate change. There is a broad-based posterior disc bulges h erniation with severe right lateral recess narrowing and right neuroforaminal narrowing. Moderate lef t lateral recess narrowing. L3-L4: Endplate change and disc desiccation. Ligament flavum hypertrophy with facet arthropathy. Post erior disc osteophyte with severe canal narrowing lateral recess narrowing. Bilateral neuroforaminal narrowing. L4-L5: Advanced endplate change with facet arthropathy. Disc osteophyte with severe bilateral lateral recess narrowing. Moderate to severe bilateral neuroforaminal narrowing. Moderate to severe canal na rrowing. L5-S1: Disc desiccation. Broad-based posterior disc bulge with moderate to severe bilateral neurofora simi narrowing IMPRESSION: Multilevel discogenic degenerative change with significant canal narrowing lateral recess narrowing a nd neuroforaminal narrowing at several levels. Signer Name: Frederick Ferrari MD Signed: 10/25/2021 9:51 AM Workstation Name: [id number]
[2021-10-25] MEDS: ACETAMINOPHEN 325 MG TAB PO PRN (12:12)
--- NOTE | 2021-10-25 13:10 | Progress Note ---
Assessment and Plan Assessment and plan: #Acute metabolic encephalopathyfluctuating #Hepatic encephalopathyruled out Unremarkable CT head (10/19/2021), chest x-ray, and MRI brain without contrast (10/20/2021) Unremarkable ammonia making hepatic encephalopathy lower on the differential Neurology consulted; appreciate recs. Unable to obtain MRI abdomen due to patient movement. MRI lumbar spine pending #Lactic acidosisresolved Likely secondary to elevated transaminases. Unremarkable urinalysis. #Elevated transaminases-improving #Decompensated alcoholic cirrhosis #Nodular mass on left hepatic lobe #Partial thrombosis of main portal vein T bilirubin downtredning, AST/ALT stable CT abdomen and pelvis with contrast (10/20/2021) revealing cirrhosis of the liver with mild splenomegaly and ascites; 3 cm nodular density in the left hepatic lobe; partial thrombosis of the main portal vein and proximal right and left portal vein; poor opacification of the superior mesenteric vein which is suspicious for thrombosis; no evidence of bowel obstruction or obvious CT findings of ischemia at this time Gastroenterology consulted; appreciate recs Pending MRI liver to evaluate left hepatic lesion. Pending alpha-fetoprotein. Continue lactulose 20 g every 8 hours #Alcohol dependence - Counseled patient on the importance of ETOH cessation. Assess patient's current ETOH consumption. Assisted with trying to arrange resources for patient to adequately work towards ETOH cessation. Patient expresses understanding. Starting p.o. thiamine, folic acid, and multivitamin. -Time: +15 mins #Mild protein caloric malnutrition Albumin 3.0 Continue dietary supplementation #Advanced care planning -Disease education conducted, care plan discussed, diagnoses discussed, prognosis discussed, and patient acknowledges understanding with care plan -Time: +30 min History Interval history: Patient seen at the bedside eating breakfast. He is much more cooperative today. We discussed need for MRI. Patient said that he would try the best he could today to sit through it. He has no complaints at this time. Hospitalist Physical - Physical exam Narrative exam: GENERAL: Well-developed well-nourished. In no acute distress. HEENT: Edentulous, mild scleral icterus. NECK: Supple. CHEST/LUNGS: CTAB on room air HEART/CARDIOVASCULAR: RRR. No murmur, rubs or gallops appreciated. ABDOMEN: +BS. NT/ND. SKIN: No rashes noted. NEURO: No focal motor deficit. Follows all commands. MUSCULOSKELETAL: No joint effusion EXTREMITIES: No cyanosis, clubbing or edema. PSYCH: Patient answers questions appropriately and answers when he feels like it. - Constitutional Vitals: Temp Pulse Resp BP Pulse Ox 97.9 F 88 16 138/81 97 10/24/21 23:08 10/24/21 23:08 10/24/21 23:08 10/24/21 23:08 10/24/21 23:08 General appearance: Present: no acute distress, other (More alert this morning) HEART Score - HEART Score Troponin: Troponin T 0.020 ng/mL (0.00-0.029) 10/19/21 23:10 Results - Labs CBC & Chem 7: 10/21/21 07:49 10/25/21 06:12 Labs: Laboratory Last Values WBC 8.5 K/mm3 (4.5-11.0) 10/21/21 07:49 RBC 4.16 M/mm3 (3.65-5.03) 10/21/21 07:49 Hgb 13.6 gm/dl (11.8-15.2) 10/21/21 07:49 Hct 40.6 % (35.5-45.6) 10/21/21 07:49 MCV 97 fl (84-94) H 10/21/21 07:49 MCH 33 pg (28-32) H 10/21/21 07:49 MCHC 34 % (32-34) 10/21/21 07:49 RDW 15.2 % (13.2-15.2) 10/21/21 07:49 Plt Count 149 K/mm3 (140-440) 10/21/21 07:49 Lymph % (Auto) 13.3 % (13.4-35.0) L 10/21/21 07:49 [place] % (Auto) 9.0 % (0.0-7.3) H 10/21/21 07:49 Eos % (Auto) 3.6 % (0.0-4.3) 10/21/21 07:49 Baso % (Auto) 0.3 % (0.0-1.8) 10/21/21 07:49 Lymph # (Auto) 1.1 K/mm3 (1.2-5.4) L 10/21/21 07:49 [place] # (Auto) 0.8 K/mm3 (0.0-0.8) 10/21/21 07:49 Eos # (Auto) 0.3 K/mm3 (0.0-0.4) 10/21/21 07:49 Baso # (Auto) 0.0 K/mm3 (0.0-0.1) 10/21/21 07:49 Seg Neutrophils % 73.8 % (40.0-70.0) H 10/21/21 07:49 Seg Neutrophils # 6.3 K/mm3 (1.8-7.7) 10/21/21 07:49 PT 15.3 Sec. (12.2-14.9) H 10/19/21 23:10 INR 1.09 (0.87-1.13) 10/19/21 23:10 Sodium 135 mmol/L (137-145) L 10/25/21 06:12 Potassium 3.7 mmol/L (3.6-5.0) 10/25/21 06:12 Chloride 100.5 mmol/L (98-107) 10/25/21 06:12 Carbon Dioxide 22 mmol/L (22-30) 10/25/21 06:12 Anion Gap 16 mmol/L 10/25/21 06:12 BUN 15 mg/dL (9-20) 10/25/21 06:12 Creatinine 0.7 mg/dL (0.8-1.3) L 10/25/21 06:12 Estimated GFR > 60 ml/min 10/25/21 06:12 BUN/Creatinine Ratio 21 % 10/25/21 06:12 Glucose 121 mg/dL (75-100) H 10/25/21 06:12 POC Glucose 187 mg/dL (70-105) H 10/25/21 11:17 Lactic Acid 1.90 mmol/L (0.7-2.0) 10/22/21 07:38 Calcium 8.5 mg/dL (8.4-10.2) 10/25/21 06:12 Total Bilirubin 3.20 mg/dL (0.1-1.2) H 10/25/21 06:12 AST 149 units/L (5-40) H 10/25/21 06:12 ALT 106 units/L (7-56) H 10/25/21 06:12 Alkaline Phosphatase 627 units/L (35-129) H 10/25/21 06:12 Ammonia 28.0 umol/L (25-60) 10/20/21 00:28 Total Creatine Kinase 313 units/L (55-170) H 10/19/21 23:10 Troponin T 0.020 ng/mL (0.00-0.029) 10/19/21 23:10 Total Protein 7.0 g/dL (6.3-8.2) 10/25/21 06:12 Albumin 3.0 g/dL (3.9-5) L 10/25/21 06:12 Albumin/Globulin Ratio 0.8 % 10/25/21 06:12 Prealbumin 0.106 g/L (0.200-0.400) L 10/20/21 16:00 Vitamin B12 1141 pg/mL (211-911) H 10/20/21 16:00 Folate 20.00 ng/mL (7.3-26.0) 10/20/21 16:00 TSH 0.864 mlU/mL (0.270-4.200) 10/20/21 16:00 Urine Color [place] (Yellow) 10/20/21 03:17 Urine Turbidity Clear (Clear) 10/20/21 03:17 Specific [place] (Man) 1.025 (1.003-1.030) 10/20/21 03:17 Ur Protein (Man) 1+ mg/dL (Negative) 10/20/21 03:17 Ur Ketones (Man) 1+ (Negative) 10/20/21 03:17 Ur Nitrite (Man) Negative (Negative) 10/20/21 03:17 Urine Bilirubin (Man) Small (Negative) 10/20/21 03:17 Urine Ictotest Positive (Negative) 10/20/21 03:17 Leukocyte Esterase (Man) Negative (Negative) 10/20/21 03:17 Urine WBC (Auto) 6.0 /HPF (0.0-6.0) 10/20/21 03:17 Urine RBC (Auto) 3.0 /HPF (0.0-6.0) 10/20/21 03:17 U Epithel Cells (Auto) 3.0 /HPF (0-13.0) 10/20/21 03:17 Urine RBC (Manual) Negative (Negative) 10/20/21 03:17 Urine Mucus Few /HPF 10/20/21 03:17 Salicylates < 0.3 mg/dL (2.8-20.0) L 10/19/21 23:10 Urine Opiates Screen Negative 10/20/21 03:17 Urine Methadone Screen Negative 10/20/21 03:17 Acetaminophen 5.0 ug/mL (10.0-30.0) L 10/19/21 23:10 Ur Barbiturates Screen Negative 10/20/21 03:17 Ur Phencyclidine Scrn Negative 10/20/21 03:17 Ur Amphetamines Screen Negative 10/20/21 03:17 U Benzodiazepines Scrn Negative 10/20/21 03:17 Urine Cocaine Screen Negative 10/20/21 03:17 U Marijuana (THC) Screen Negative 10/20/21 03:17 Drugs of Abuse Note Disclamer 10/20/21 03:17 Plasma/Serum Alcohol < 0.01 % (0-0.07) 10/19/21 23:10 Syphilis IgG/IgM Ab Nonreactive (NonReactive) 10/20/21 16:00 Hepatitis A IgM Ab Non-reactive (NonReactive) 10/21/21 07:49 Hep Bs Antigen Non-reactive (Negative) 10/21/21 07:49 Hep B Core IgM Ab Non-reactive (NonReactive) 10/21/21 07:49 Hepatitis C Antibody Non-reactive (NonReactive) 10/21/21 07:49 [place]/IV: Voiding Method Condom Catheter Active Medications - Current Medications Current Medications: Generic Name Dose Route Start Last Admin Trade Name Freq PRN Reason Stop Dose Admin Acetaminophen 650 mg 10/20/21 05:56 10/25/21 12:12 Acetaminophen 325 Mg Tab PO 650 mg Q4H PRN Administration Pain MILD(1-3)/Fever >100.5/CALLEJAS Albuterol 2.5 mg 10/20/21 05:56 Albuterol 2.5 Mg/3 Ml Nebu IH Q3HRT PRN Shortness Of Breath Dextrose 50 ml 10/20/21 05:58 Dextrose 50% In Water (25gm) 50 Ml Syringe IV Q30MIN PRN Hypoglycemia Protocol Folic Acid 1 mg 10/21/21 10:00 10/25/21 09:42 Folic Acid 1 Mg Tab PO 1 mg DAILY BALDO Administration Insulin Human Lispro 0 unit 10/20/21 07:30 10/25/21 12:22 Insulin Lispro 100 Unit/Ml SUB-Q 2 unit ACHS BALDO Administration Protocol Lactulose 20 gm 10/20/21 16:31 Lactulose 20 Gm/30 Ml Oral Liqd PO Q8H PRN Constipation Lorazepam 4 mg 10/21/21 09:05 10/22/21 04:44 Lorazepam 2 Mg Tab PO 1 mg Q1H PRN Administration CIWA-Ar 16-25 Lorazepam 4 mg 10/21/21 09:05 Lorazepam 2 Mg/Ml Vial IV Q15MIN PRN CIWA-Ar >25 Multivitamins 1 each 10/21/21 10:00 10/25/21 09:43 Multivitamins ,Therapeutic Tab PO 1 each DAILY BALDO Administration Ondansetron HCl 4 mg 10/20/21 05:56 10/20/21 18:11 Ondansetron 4 Mg/2 Ml Inj IV 4 mg Q8H PRN Administration Nausea And Vomiting Pantoprazole Sodium 40 mg 10/21/21 07:30 10/25/21 09:43 Pantoprazole 40 Mg Tab PO 40 mg QDAC BALDO Administration Sodium Chloride 10 ml 10/20/21 10:00 10/25/21 09:43 Sodium Chloride 0.9% 10 Ml Flush Syringe IV 10 ml BID BALDO Administration Sodium Chloride 10 ml 10/20/21 05:56 Sodium Chloride 0.9% 10 Ml Flush Syringe IV PRN PRN LINE FLUSH Nutrition/Malnutrition Assess - Dietary Evaluation Nutrition/Malnutrition Findings: Nutrition Notes Start: 10/20/21 12:12 Freq: Status: Active Protocol: Document 10/23/21 15:16 JONO (Rec: 10/23/21 15:32 [email or web address] [id number]) Nutrition Notes Initial or Follow up Reassessment Other Pertinent Diagnosis Acute metabolic encephalopathy , hepatic mass Current Diet Cardiac/Consistent CHO Labs/Tests Na 135 Pertinent Medications Protonix Height 6 ft Weight 90.718 kg [place] Body Weight (kg) 80.90 BMI 27.1 Weight Status Overweight Subjective/Other Information Observed pt eating lunch at time of visit (13:05). He is able to feed himself, but eats very slow. He is pleasantly confused. He has consumed ~40 % of meals since last assessment. He remains on CIWA protocol. Percent of energy/protein needs met: 40% energy 38% pro Burn Absent Trauma Absent #1 Nutrition Diagnosis Predicted suboptimal energy intake,Inadequate protein- energy intake Etiology AMS As Evidenced by Signs and Symptoms PO intakes meeting <50% of estimated energy and pro needs Is patient on ventilator? No Is Patient Ambulatory and/or Out of Bed No REE-([facility]-confined to bed) 70 Calculation Used for Recommendations [facility] Additional Notes Pro needs 1-1.2g/k-109g/ day Fluid needs 1ml/kcal Nutrition Intervention Change Diet Order: Continue current diet order Add Supplement/Snack (indicate name/kcal Glucerna BID /protein ) Provides kCal: 440 Provides Protein (gm) 20 Goal #1 PO intake of meals plus ONS to meet at least 75% energy and pro needs Follow-Up By: 10/27/21 Additional Comments F/U: intakes (meals/ONS)
[2021-10-26] MEDS: FOLIC ACID 1 MG TAB PO SCH (09:03)
[2021-10-26] MEDS: INSULIN LISPRO 100 UNIT/ML SUB-Q SCH ×3 (09:04→17:34)
[2021-10-26] MEDS: MULTIVITAMINS ,THERAPEUTIC TAB PO SCH (09:04)
[2021-10-26] MEDS: PANTOPRAZOLE 40 MG TAB PO SCH (09:04)
[2021-10-26 10:08] LABS: Vitamin D, 25-OH, D2 SEE SCANNED RESULT
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
--- NOTE | 2021-10-26 14:14 | Progress Note ---
Assessment and Plan Assessment and plan: #Acute metabolic encephalopathyfluctuating #Hepatic encephalopathyruled out Unremarkable CT head (10/19/2021), chest x-ray, and MRI brain without contrast (10/20/2021) Unremarkable ammonia making hepatic encephalopathy lower on the differential Neurology consulted; appreciate recs. Unable to obtain MRI abdomen and spine due to patient movement - per patients Daughter he likely has underlying dementia #Lactic acidosisresolved Likely secondary to elevated transaminases. Unremarkable urinalysis. 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 Will defer to outpatient setting. Pending alpha-fetoprotein. Continue lactulose 20 g every 8 hours -Hematology consulted for thrombosis recommendations #Alcohol dependence - Counseled patient on the importance of ETOH cessation. Assess patient's current ETOH consumption. Assisted with trying to arrange resources for patient to adequately work towards ETOH cessation. Patient expresses understanding. Starting p.o. thiamine, folic acid, and multivitamin. -Time: +15 mins #Mild protein caloric malnutrition Albumin 3.0 Continue dietary supplementation #Advanced care planning -Disease education conducted, care plan discussed, diagnoses discussed, prognosis discussed, with patient daughter Radha Bojorquez via phone acknowledges understanding with care plan -Time: +30 min #Discharge planning -discussed goals of care with patient's daughter Radha. PT evaluation ordered to help with dispo planning. Daughter is not able to care for patient in this state. -CM/SW aware History Interval history: No acute events overnight per nursing. Patient alert to self. He is less talkative today but denies current pain and discomfort. Hospitalist Physical - Physical exam Narrative exam: GENERAL: Well-developed well-nourished. In no acute distress. HEENT: Edentulous, mild scleral icterus. NECK: Supple. CHEST/LUNGS: CTAB on room air HEART/CARDIOVASCULAR: RRR. No murmur, rubs or gallops appreciated. ABDOMEN: +BS. NT/ND. SKIN: No rashes noted. NEURO: No focal motor deficit. Follows all commands. MUSCULOSKELETAL: No joint effusion EXTREMITIES: No cyanosis, clubbing or edema. PSYCH: Patient answers questions appropriately and answers when he feels like it. - Constitutional Vitals: Temp Pulse Resp BP Pulse Ox 98.9 F 87 22 119/73 97 10/26/21 11:11 10/26/21 11:11 10/26/21 11:11 10/26/21 11:11 10/26/21 11:11 General appearance: Present: no acute distress, other (More alert this morning) HEART Score - HEART Score Troponin: Troponin T 0.020 ng/mL (0.00-0.029) 10/19/21 23:10 Results - Labs CBC & Chem 7: 10/21/21 07:49 10/25/21 06:12 Labs: Laboratory Last Values WBC 8.5 K/mm3 (4.5-11.0) 10/21/21 07:49 RBC 4.16 M/mm3 (3.65-5.03) 10/21/21 07:49 Hgb 13.6 gm/dl (11.8-15.2) 10/21/21 07:49 Hct 40.6 % (35.5-45.6) 10/21/21 07:49 MCV 97 fl (84-94) H 10/21/21 07:49 MCH 33 pg (28-32) H 10/21/21 07:49 MCHC 34 % (32-34) 10/21/21 07:49 RDW 15.2 % (13.2-15.2) 10/21/21 07:49 Plt Count 149 K/mm3 (140-440) 10/21/21 07:49 Lymph % (Auto) 13.3 % (13.4-35.0) L 10/21/21 07:49 [place] % (Auto) 9.0 % (0.0-7.3) H 10/21/21 07:49 Eos % (Auto) 3.6 % (0.0-4.3) 10/21/21 07:49 Baso % (Auto) 0.3 % (0.0-1.8) 10/21/21 07:49 Lymph # (Auto) 1.1 K/mm3 (1.2-5.4) L 10/21/21 07:49 [place] # (Auto) 0.8 K/mm3 (0.0-0.8) 10/21/21 07:49 Eos # (Auto) 0.3 K/mm3 (0.0-0.4) 10/21/21 07:49 Baso # (Auto) 0.0 K/mm3 (0.0-0.1) 10/21/21 07:49 Seg Neutrophils % 73.8 % (40.0-70.0) H 10/21/21 07:49 Seg Neutrophils # 6.3 K/mm3 (1.8-7.7) 10/21/21 07:49 PT 15.3 Sec. (12.2-14.9) H 10/19/21 23:10 INR 1.09 (0.87-1.13) 10/19/21 23:10 Sodium 135 mmol/L (137-145) L 10/25/21 06:12 Potassium 3.7 mmol/L (3.6-5.0) 10/25/21 06:12 Chloride 100.5 mmol/L (98-107) 10/25/21 06:12 Carbon Dioxide 22 mmol/L (22-30) 10/25/21 06:12 Anion Gap 16 mmol/L 10/25/21 06:12 BUN 15 mg/dL (9-20) 10/25/21 06:12 Creatinine 0.7 mg/dL (0.8-1.3) L 10/25/21 06:12 Estimated GFR > 60 ml/min 10/25/21 06:12 BUN/Creatinine Ratio 21 % 10/25/21 06:12 Glucose 121 mg/dL (75-100) H 10/25/21 06:12 POC Glucose 235 mg/dL (70-105) H 10/26/21 11:08 Lactic Acid 1.90 mmol/L (0.7-2.0) 10/22/21 07:38 Calcium 8.5 mg/dL (8.4-10.2) 10/25/21 06:12 Total Bilirubin 3.20 mg/dL (0.1-1.2) H 10/25/21 06:12 AST 149 units/L (5-40) H 10/25/21 06:12 ALT 106 units/L (7-56) H 10/25/21 06:12 Alkaline Phosphatase 627 units/L (35-129) H 10/25/21 06:12 Ammonia 72.0 umol/L (25-60) H 10/20/21 16:03 Total Creatine Kinase 313 units/L (55-170) H 10/19/21 23:10 Troponin T 0.020 ng/mL (0.00-0.029) 10/19/21 23:10 Total Protein 7.0 g/dL (6.3-8.2) 10/25/21 06:12 Albumin 3.0 g/dL (3.9-5) L 10/25/21 06:12 Albumin/Globulin Ratio 0.8 % 10/25/21 06:12 Prealbumin 0.106 g/L (0.200-0.400) L 10/20/21 16:00 Tumor Marker AFP See scanned result 10/21/21 07:49 Vitamin B1 10 nmol/L (8-30) 10/20/21 16:00 Vitamin B12 1141 pg/mL (211-911) H 10/20/21 16:00 25-OH Vitamin D Total See scanned result 10/20/21 16:00 25-Hydroxy Vitamin D2 See scanned result 10/20/21 16:00 1,25 Dihydroxy Vit D2 See scanned result 10/20/21 16:00 25-Hydroxy Vitamin D3 See scanned result 10/20/21 16:00 1,25 Dihydroxy Vit D3 See scanned result 10/20/21 16:00 Folate 20.00 ng/mL (7.3-26.0) 10/20/21 16:00 TSH 0.864 mlU/mL (0.270-4.200) 10/20/21 16:00 Urine Color [place] (Yellow) 10/20/21 03:17 Urine Turbidity Clear (Clear) 10/20/21 03:17 Specific [place] (Man) 1.025 (1.003-1.030) 10/20/21 03:17 Ur Protein (Man) 1+ mg/dL (Negative) 10/20/21 03:17 Ur Ketones (Man) 1+ (Negative) 10/20/21 03:17 Ur Nitrite (Man) Negative (Negative) 10/20/21 03:17 Urine Bilirubin (Man) Small (Negative) 10/20/21 03:17 Urine Ictotest Positive (Negative) 10/20/21 03:17 Leukocyte Esterase (Man) Negative (Negative) 10/20/21 03:17 Urine WBC (Auto) 6.0 /HPF (0.0-6.0) 10/20/21 03:17 Urine RBC (Auto) 3.0 /HPF (0.0-6.0) 10/20/21 03:17 U Epithel Cells (Auto) 3.0 /HPF (0-13.0) 10/20/21 03:17 Urine RBC (Manual) Negative (Negative) 10/20/21 03:17 Urine Mucus Few /HPF 10/20/21 03:17 Salicylates < 0.3 mg/dL (2.8-20.0) L 10/19/21 23:10 Urine Opiates Screen Negative 10/20/21 03:17 Urine Methadone Screen Negative 10/20/21 03:17 Acetaminophen 5.0 ug/mL (10.0-30.0) L 10/19/21 23:10 Ur Barbiturates Screen Negative 10/20/21 03:17 Ur Phencyclidine Scrn Negative 10/20/21 03:17 Ur Amphetamines Screen Negative 10/20/21 03:17 U Benzodiazepines Scrn Negative 10/20/21 03:17 Urine Cocaine Screen Negative 10/20/21 03:17 U Marijuana (THC) Screen Negative 10/20/21 03:17 Drugs of Abuse Note Disclamer 10/20/21 03:17 Plasma/Serum Alcohol < 0.01 % (0-0.07) 10/19/21 23:10 Syphilis IgG/IgM Ab Nonreactive (NonReactive) 10/20/21 16:00 Hepatitis A IgM Ab Non-reactive (NonReactive) 10/21/21 07:49 Hep Bs Antigen Non-reactive (Negative) 10/21/21 07:49 Hep B Core IgM Ab Non-reactive (NonReactive) 10/21/21 07:49 Hepatitis C Antibody Non-reactive (NonReactive) 10/21/21 07:49 [place]/IV: Voiding Method Condom Catheter Active Medications - Current Medications Current Medications: Generic Name Dose Route Start Last Admin Trade Name Freq PRN Reason Stop Dose Admin Acetaminophen 650 mg 10/20/21 05:56 10/25/21 12:12 Acetaminophen 325 Mg Tab PO 650 mg Q4H PRN Administration Pain MILD(1-3)/Fever >100.5/CALLEJAS Albuterol 2.5 mg 10/20/21 05:56 Albuterol 2.5 Mg/3 Ml Nebu IH Q3HRT PRN Shortness Of Breath Dextrose 50 ml 10/20/21 05:58 Dextrose 50% In Water (25gm) 50 Ml Syringe IV Q30MIN PRN Hypoglycemia Protocol Folic Acid 1 mg 10/21/21 10:00 10/26/21 09:03 Folic Acid 1 Mg Tab PO 1 mg DAILY BALDO Administration Insulin Human Lispro 0 unit 10/20/21 07:30 10/26/21 12:28 Insulin Lispro 100 Unit/Ml SUB-Q 3 unit ACHS BALDO Administration Protocol Lactulose 20 gm 10/20/21 16:31 Lactulose 20 Gm/30 Ml Oral Liqd PO Q8H PRN Constipation Lorazepam 4 mg 10/21/21 09:05 10/22/21 04:44 Lorazepam 2 Mg Tab PO 1 mg Q1H PRN Administration CIWA-Ar 16-25 Lorazepam 4 mg 10/21/21 09:05 Lorazepam 2 Mg/Ml Vial IV Q15MIN PRN CIWA-Ar >25 Multivitamins 1 each 10/21/21 10:00 10/26/21 09:04 Multivitamins ,Therapeutic Tab PO 1 each DAILY BALDO Administration Ondansetron HCl 4 mg 10/20/21 05:56 10/20/21 18:11 Ondansetron 4 Mg/2 Ml Inj IV 4 mg Q8H PRN Administration Nausea And Vomiting Pantoprazole Sodium 40 mg 10/21/21 07:30 10/26/21 09:04 Pantoprazole 40 Mg Tab PO 40 mg QDAC BALDO Administration Sodium Chloride 10 ml 10/20/21 10:00 10/26/21 09:04 Sodium Chloride 0.9% 10 Ml Flush Syringe IV 10 ml BID BALDO Administration Sodium Chloride 10 ml 10/20/21 05:56 Sodium Chloride 0.9% 10 Ml Flush Syringe IV PRN PRN LINE FLUSH Nutrition/Malnutrition Assess - Dietary Evaluation Nutrition/Malnutrition Findings: Nutrition Notes Start: 10/20/21 12:12 Freq: Status: Active Protocol: Document 10/23/21 15:16 JONO (Rec: 10/23/21 15:32 JONO [id number]) Nutrition Notes Initial or Follow up Reassessment Other Pertinent Diagnosis Acute metabolic encephalopathy , hepatic mass Current Diet Cardiac/Consistent CHO Labs/Tests Na 135 Pertinent Medications Protonix Height 6 ft Weight 90.718 kg [place] Body Weight (kg) 80.90 BMI 27.1 Weight Status Overweight Subjective/Other Information Observed pt eating lunch at time of visit (13:05). He is able to feed himself, but eats very slow. He is pleasantly confused. He has consumed ~40 % of meals since last assessment. He remains on CIWA protocol. Percent of energy/protein needs met: 40% energy 38% pro Burn Absent Trauma Absent #1 Nutrition Diagnosis Predicted suboptimal energy intake,Inadequate protein- energy intake Etiology AMS As Evidenced by Signs and Symptoms PO intakes meeting <50% of estimated energy and pro needs Is patient on ventilator? No Is Patient Ambulatory and/or Out of Bed No REE-([facility]-confined to bed) 1997.708 Calculation Used for Recommendations [facility] Additional Notes Pro needs 1-1.2g/k-109g/ day Fluid needs 1ml/kcal Nutrition Intervention Change Diet Order: Continue current diet order Add Supplement/Snack (indicate name/kcal Glucerna BID /protein ) Provides kCal: 440 Provides Protein (gm) 20 Goal #1 PO intake of meals plus ONS to meet at least 75% energy and pro needs Follow-Up By: 10/27/21 Additional Comments F/U: intakes (meals/ONS)
[2021-10-27] MEDS: INSULIN LISPRO 100 UNIT/ML SUB-Q SCH ×5 (01:26→22:24)
[2021-10-27 07:04] LABS: Hematocrit 40.6 % (35.5-45.6); Hemoglobin 13.4 gm/dl (11.8-15.2); Mean Corpuscular HGB Conc 33 % (32-34); Mean Corpuscular Volume 98 fl (84-94); Platelet Count 146 K/mm3 (140-440); Red Blood Count 4.17 M/mm3 (3.65-5.03); Red Cell Distribution Width 15.9 % (13.2-15.2)
[2021-10-27] MEDS: PANTOPRAZOLE 40 MG TAB PO SCH (07:50)
[2021-10-27 08:56] LABS: INR 1.02 (0.87-1.13)
[2021-10-27 09:01] LABS: Partial Thromboplastin Time 32.2 Sec. (24.2-36.6)
[2021-10-27] MEDS: MULTIVITAMINS ,THERAPEUTIC TAB PO SCH (09:57)
[2021-10-27] MEDS: APIXABAN 5 MG TAB PO SCH ×2 (09:58→22:16)
[2021-10-27] MEDS: FOLIC ACID 1 MG TAB PO SCH (09:58)
--- NOTE | 2021-10-27 22:25 | Progress Note ---
Assessment and Plan Assessment and plan: #Acute metabolic encephalopathyfluctuating #Hepatic encephalopathyruled out Unremarkable CT head (10/19/2021), chest x-ray, and MRI brain without contrast (10/20/2021) Unremarkable ammonia making hepatic encephalopathy lower on the differential Neurology consulted; appreciate recs. Unable to obtain MRI abdomen and spine due to patient movement - per patients Daughter he likely has underlying dementia #Lactic acidosisresolved Likely secondary to elevated transaminases. Unremarkable urinalysis. 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 AFP > 30k Continue lactulose 20 g every 8 hours -Hematology consulted for thrombosis recommendations #Alcohol dependence-resolved - Counseled patient on the importance of ETOH cessation. Assess patient's current ETOH consumption. Assisted with trying to arrange resources for patient to adequately work towards ETOH cessation. Patient expresses understanding. Starting p.o. thiamine, folic acid, and multivitamin. -Time: +15 mins #Mild protein caloric malnutrition Albumin 3.0 Continue dietary supplementation #Advanced care planning -Disease education conducted, care plan discussed, diagnoses discussed, prognosis discussed, with patient daughter Radha Bojorquez via phone acknowledges understanding with care plan -Time: +30 min #Discharge planning -will have a goals of care discussion with patient's daughter Radha about possibility of hospice. Daughter is not able to care for patient in this state. -CM/SW aware History Interval history: No acute events overnight per nursing. Patient alert to self. He is less talkative today but denies current pain and discomfort. Hospitalist Physical - Physical exam Narrative exam: GENERAL: Well-developed well-nourished. In no acute distress. HEENT: Edentulous, mild scleral icterus. CHEST/LUNGS: CTAB on room air HEART/CARDIOVASCULAR: RRR. No murmur, rubs or gallops appreciated. ABDOMEN: +BS. NT/ND. SKIN: No rashes noted. NEURO: No focal motor deficit. Follows all commands. EXTREMITIES: No cyanosis, clubbing or edema. PSYCH: Patient answers questions appropriately and answers when he feels like it. - Constitutional Vitals: Temp Pulse Resp BP Pulse Ox 98.3 F 91 H 16 139/84 99 10/27/21 04:25 10/27/21 04:25 10/27/21 07:54 10/27/21 04:25 10/27/21 07:54 General appearance: Present: no acute distress, other (More alert this morning) HEART Score - HEART Score Troponin: Troponin T 0.020 ng/mL (0.00-0.029) 10/19/21 23:10 Results - Labs CBC & Chem 7: 10/27/21 06:31 10/27/21 07:51 Labs: Laboratory Last Values WBC 7.7 K/mm3 (4.5-11.0) 10/27/21 06:31 RBC 4.17 M/mm3 (3.65-5.03) 10/27/21 06:31 Hgb 13.4 gm/dl (11.8-15.2) 10/27/21 06:31 Hct 40.6 % (35.5-45.6) 10/27/21 06:31 MCV 98 fl (84-94) H 10/27/21 06:31 MCH 32 pg (28-32) 10/27/21 06:31 MCHC 33 % (32-34) 10/27/21 06:31 RDW 15.9 % (13.2-15.2) H 10/27/21 06:31 Plt Count 146 K/mm3 (140-440) 10/27/21 06:31 Lymph % (Auto) 13.3 % (13.4-35.0) L 10/21/21 07:49 [place] % (Auto) 9.0 % (0.0-7.3) H 10/21/21 07:49 Eos % (Auto) 3.6 % (0.0-4.3) 10/21/21 07:49 Baso % (Auto) 0.3 % (0.0-1.8) 10/21/21 07:49 Lymph # (Auto) 1.1 K/mm3 (1.2-5.4) L 10/21/21 07:49 [place] # (Auto) 0.8 K/mm3 (0.0-0.8) 10/21/21 07:49 Eos # (Auto) 0.3 K/mm3 (0.0-0.4) 10/21/21 07:49 Baso # (Auto) 0.0 K/mm3 (0.0-0.1) 10/21/21 07:49 Seg Neutrophils % 73.8 % (40.0-70.0) H 10/21/21 07:49 Seg Neutrophils # 6.3 K/mm3 (1.8-7.7) 10/21/21 07:49 PT 14.5 Sec. (12.2-14.9) 10/27/21 07:51 INR 1.02 (0.87-1.13) 10/27/21 07:51 APTT 32.2 Sec. (24.2-36.6) 10/27/21 07:51 Sodium 135 mmol/L (137-145) L 10/25/21 06:12 Potassium 3.7 mmol/L (3.6-5.0) 10/25/21 06:12 Chloride 100.5 mmol/L (98-107) 10/25/21 06:12 Carbon Dioxide 22 mmol/L (22-30) 10/25/21 06:12 Anion Gap 16 mmol/L 10/25/21 06:12 BUN 15 mg/dL (9-20) 10/25/21 06:12 Creatinine 0.7 mg/dL (0.8-1.3) L 10/27/21 07:51 Estimated GFR > 60 ml/min 10/27/21 07:51 BUN/Creatinine Ratio 21 % 10/25/21 06:12 Glucose 121 mg/dL (75-100) H 10/25/21 06:12 POC Glucose 156 mg/dL (70-105) H 10/27/21 16:36 Lactic Acid 1.90 mmol/L (0.7-2.0) 10/22/21 07:38 Calcium 8.5 mg/dL (8.4-10.2) 10/25/21 06:12 Total Bilirubin 3.20 mg/dL (0.1-1.2) H 10/25/21 06:12 AST 149 units/L (5-40) H 10/25/21 06:12 ALT 106 units/L (7-56) H 10/25/21 06:12 Alkaline Phosphatase 627 units/L (35-129) H 10/25/21 06:12 Ammonia 72.0 umol/L (25-60) H 10/20/21 16:03 Total Creatine Kinase 313 units/L (55-170) H 10/19/21 23:10 Troponin T 0.020 ng/mL (0.00-0.029) 10/19/21 23:10 Total Protein 7.0 g/dL (6.3-8.2) 10/25/21 06:12 Albumin 3.0 g/dL (3.9-5) L 10/25/21 06:12 Albumin/Globulin Ratio 0.8 % 10/25/21 06:12 Prealbumin 0.106 g/L (0.200-0.400) L 10/20/21 16:00 Tumor Marker AFP See scanned result 10/21/21 07:49 Vitamin B1 10 nmol/L (8-30) 10/20/21 16:00 Vitamin B12 1141 pg/mL (211-911) H 10/20/21 16:00 25-OH Vitamin D Total See scanned result 10/20/21 16:00 25-Hydroxy Vitamin D2 See scanned result 10/20/21 16:00 1,25 Dihydroxy Vit D2 See scanned result 10/20/21 16:00 25-Hydroxy Vitamin D3 See scanned result 10/20/21 16:00 1,25 Dihydroxy Vit D3 See scanned result 10/20/21 16:00 Folate 20.00 ng/mL (7.3-26.0) 10/20/21 16:00 TSH 0.864 mlU/mL (0.270-4.200) 10/20/21 16:00 Urine Color [place] (Yellow) 10/20/21 03:17 Urine Turbidity Clear (Clear) 10/20/21 03:17 Specific [place] (Man) 1.025 (1.003-1.030) 10/20/21 03:17 Ur Protein (Man) 1+ mg/dL (Negative) 10/20/21 03:17 Ur Ketones (Man) 1+ (Negative) 10/20/21 03:17 Ur Nitrite (Man) Negative (Negative) 10/20/21 03:17 Urine Bilirubin (Man) Small (Negative) 10/20/21 03:17 Urine Ictotest Positive (Negative) 10/20/21 03:17 Leukocyte Esterase (Man) Negative (Negative) 10/20/21 03:17 Urine WBC (Auto) 6.0 /HPF (0.0-6.0) 10/20/21 03:17 Urine RBC (Auto) 3.0 /HPF (0.0-6.0) 10/20/21 03:17 U Epithel Cells (Auto) 3.0 /HPF (0-13.0) 10/20/21 03:17 Urine RBC (Manual) Negative (Negative) 10/20/21 03:17 Urine Mucus Few /HPF 10/20/21 03:17 Salicylates < 0.3 mg/dL (2.8-20.0) L 10/19/21 23:10 Urine Opiates Screen Negative 10/20/21 03:17 Urine Methadone Screen Negative 10/20/21 03:17 Acetaminophen 5.0 ug/mL (10.0-30.0) L 10/19/21 23:10 Ur Barbiturates Screen Negative 10/20/21 03:17 Ur Phencyclidine Scrn Negative 10/20/21 03:17 Ur Amphetamines Screen Negative 10/20/21 03:17 U Benzodiazepines Scrn Negative 10/20/21 03:17 Urine Cocaine Screen Negative 10/20/21 03:17 U Marijuana (THC) Screen Negative 10/20/21 03:17 Drugs of Abuse Note Disclamer 10/20/21 03:17 Plasma/Serum Alcohol < 0.01 % (0-0.07) 10/19/21 23:10 Syphilis IgG/IgM Ab Nonreactive (NonReactive) 10/20/21 16:00 Hepatitis A IgM Ab Non-reactive (NonReactive) 10/21/21 07:49 Hep Bs Antigen Non-reactive (Negative) 10/21/21 07:49 Hep B Core IgM Ab Non-reactive (NonReactive) 10/21/21 07:49 Hepatitis C Antibody Non-reactive (NonReactive) 10/21/21 07:49 [place]/IV: Voiding Method Condom Catheter Active Medications - Current Medications Current Medications: Generic Name Dose Route Start Last Admin Trade Name Freq PRN Reason Stop Dose Admin Acetaminophen 650 mg 10/20/21 05:56 10/25/21 12:12 Acetaminophen 325 Mg Tab PO 650 mg Q4H PRN Administration Pain MILD(1-3)/Fever >100.5/CALLEJAS Albuterol 2.5 mg 10/20/21 05:56 Albuterol 2.5 Mg/3 Ml Nebu IH Q3HRT PRN Shortness Of Breath Apixaban 10 mg 10/27/21 10:00 10/27/21 22:16 Apixaban 5 Mg Tab PO 11/02/21 22:01 10 mg Q12HR BALDO Administration Protocol Dextrose 50 ml 10/20/21 05:58 Dextrose 50% In Water (25gm) 50 Ml Syringe IV Q30MIN PRN Hypoglycemia Protocol Folic Acid 1 mg 10/21/21 10:00 10/27/21 09:58 Folic Acid 1 Mg Tab PO 1 mg DAILY BALDO Administration Insulin Human Lispro 0 unit 10/20/21 07:30 10/27/21 16:30 Insulin Lispro 100 Unit/Ml SUB-Q Not Given ACHS BALDO Protocol Lactulose 20 gm 10/20/21 16:31 Lactulose 20 Gm/30 Ml Oral Liqd PO Q8H PRN Constipation Lorazepam 4 mg 10/21/21 09:05 10/22/21 04:44 Lorazepam 2 Mg Tab PO 1 mg Q1H PRN Administration CIWA-Ar 16-25 Lorazepam 4 mg 10/21/21 09:05 Lorazepam 2 Mg/Ml Vial IV Q15MIN PRN CIWA-Ar >25 Multivitamins 1 each 10/21/21 10:00 10/27/21 09:57 Multivitamins ,Therapeutic Tab PO 1 each DAILY BALDO Administration Ondansetron HCl 4 mg 10/20/21 05:56 10/20/21 18:11 Ondansetron 4 Mg/2 Ml Inj IV 4 mg Q8H PRN Administration Nausea And Vomiting Pantoprazole Sodium 40 mg 10/21/21 07:30 10/27/21 07:50 Pantoprazole 40 Mg Tab PO 40 mg QDAC BALDO Administration Sodium Chloride 10 ml 10/20/21 10:00 10/27/21 22:23 Sodium Chloride 0.9% 10 Ml Flush Syringe IV 10 ml BID BALDO Administration Sodium Chloride 10 ml 10/20/21 05:56 Sodium Chloride 0.9% 10 Ml Flush Syringe IV PRN PRN LINE FLUSH Nutrition/Malnutrition Assess - Dietary Evaluation Nutrition/Malnutrition Findings: Nutrition Notes Start: 10/20/21 12:12 Freq: Status: Active Protocol: Document 10/27/21 13:31 JONO (Rec: 10/27/21 13:35 JONO [id number]) Nutrition Notes Initial or Follow up Reassessment Current Diagnosis Diabetes Other Pertinent Diagnosis Acute metabolic encephalopathy , hepatic mass Current Diet Cardiac/Consistent CHO + Glucerna BID Labs/Tests POC Glu range since last assessment: 134-235 Pertinent Medications Reviewed Height 6 ft Weight 89.3 kg [place] Body Weight (kg) 80.90 BMI 26.6 Weight change and time frame Wt change noted Weight Status Overweight Subjective/Other Information Pt has consumed 70% of meals since last assesment. Observed 50% of ONS consumed on breakfast tray today. Pt sleeping at time of visit (11: 32). Percent of energy/protein needs met: 70% energy 68% pro (does not include ONS) Burn Absent Trauma Absent Current % PO Fair (50-74%) #1 Nutrition Diagnosis Inadequate protein-energy intake As Evidenced by Signs and Symptoms PO intakes meeting >50% of estimated energy and pro needs Diagnosis Progress(for reassessment Improved documentation) Is patient on ventilator? No Is Patient Ambulatory and/or Out of Bed No REE-([facility]-confined to bed) 1980.936 Calculation Used for Recommendations [facility] Additional Notes Pro needs 1-1.2g/k-107g/ day Fluid needs 1ml/kcal Nutrition Intervention Change Diet Order: Continue current diet order Add Supplement/Snack (indicate name/kcal Glucerna BID /protein ) Provides kCal: 440 Provides Protein (gm) 20 Goal #1 PO intake of meals plus ONS to meet at least 75% energy and pro needs Follow-Up By: 11/01/21 Additional Comments F/U: intakes (meals, ONS), wt
[2021-10-28] MEDS: APIXABAN 5 MG TAB PO SCH ×2 (09:07→22:59)
[2021-10-28] MEDS: MULTIVITAMINS ,THERAPEUTIC TAB PO SCH (09:07)
[2021-10-28] MEDS: FOLIC ACID 1 MG TAB PO SCH (09:07)
[2021-10-28] MEDS: PANTOPRAZOLE 40 MG TAB PO SCH (09:08)
[2021-10-28] MEDS: INSULIN LISPRO 100 UNIT/ML SUB-Q SCH ×4 (09:08→22:59)
--- NOTE | 2021-10-28 09:17 | Progress Note ---
Assessment and Plan Assessment and plan: #Acute metabolic encephalopathyfluctuating #Hepatic encephalopathyruled out Unremarkable CT head (10/19/2021), chest x-ray, and MRI brain without contrast (10/20/2021) Unremarkable ammonia making hepatic encephalopathy lower on the differential Neurology consulted; appreciate recs. Unable to obtain MRI abdomen and spine due to patient movement - per patients Daughter he likely has underlying dementia #Lactic acidosisresolved Likely secondary to elevated transaminases. Unremarkable urinalysis. 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 AFP > 30k Continue lactulose 20 g every 8 hours -continue eliquis 5mg BID for thrombus #Alcohol dependence-resolved - Per family, patient has not consumed alcohol in a while #Mild protein caloric malnutrition Albumin 3.0 Continue dietary supplementation #Discharge planning -will have a goals of care discussion with patient's daughter Radha about possibility of hospice. Daughter is not able to care for patient in this state. Voicemail left to Daughter. Will call again to have discussion. -CM/SW aware History Interval history: No acute events overnight per nursing. Patient more withdrawn today. He reports having pain but does not want pain medications. He appears to be comfortable at this time. Hospitalist Physical - Physical exam Narrative exam: GENERAL: Thin elderly male. In no acute distress. HEENT: Edentulous, mild scleral icterus. CHEST/LUNGS: CTAB on room air HEART/CARDIOVASCULAR: RRR. No murmur, rubs or gallops appreciated. ABDOMEN: +BS. NT/ND. SKIN: No rashes noted. NEURO: No focal motor deficit. Follows all commands. EXTREMITIES: No cyanosis, clubbing or edema. PSYCH: Patient answers questions appropriately and answers when he feels like it. - Constitutional Vitals: Temp Pulse Resp BP Pulse Ox 97.7 F 99 H 18 115/86 98 10/28/21 04:42 10/28/21 04:42 10/28/21 04:42 10/28/21 04:42 10/28/21 04:42 General appearance: Present: no acute distress, other (More alert this morning) HEART Score - HEART Score Troponin: Troponin T 0.020 ng/mL (0.00-0.029) 10/19/21 23:10 Results - Labs CBC & Chem 7: 10/27/21 06:31 10/27/21 07:51 Labs: Laboratory Last Values WBC 7.7 K/mm3 (4.5-11.0) 10/27/21 06:31 RBC 4.17 M/mm3 (3.65-5.03) 10/27/21 06:31 Hgb 13.4 gm/dl (11.8-15.2) 10/27/21 06:31 Hct 40.6 % (35.5-45.6) 10/27/21 06:31 MCV 98 fl (84-94) H 10/27/21 06:31 MCH 32 pg (28-32) 10/27/21 06:31 MCHC 33 % (32-34) 10/27/21 06:31 RDW 15.9 % (13.2-15.2) H 10/27/21 06:31 Plt Count 146 K/mm3 (140-440) 10/27/21 06:31 Lymph % (Auto) 13.3 % (13.4-35.0) L 10/21/21 07:49 [place] % (Auto) 9.0 % (0.0-7.3) H 10/21/21 07:49 Eos % (Auto) 3.6 % (0.0-4.3) 10/21/21 07:49 Baso % (Auto) 0.3 % (0.0-1.8) 10/21/21 07:49 Lymph # (Auto) 1.1 K/mm3 (1.2-5.4) L 10/21/21 07:49 [place] # (Auto) 0.8 K/mm3 (0.0-0.8) 10/21/21 07:49 Eos # (Auto) 0.3 K/mm3 (0.0-0.4) 10/21/21 07:49 Baso # (Auto) 0.0 K/mm3 (0.0-0.1) 10/21/21 07:49 Seg Neutrophils % 73.8 % (40.0-70.0) H 10/21/21 07:49 Seg Neutrophils # 6.3 K/mm3 (1.8-7.7) 10/21/21 07:49 PT 14.5 Sec. (12.2-14.9) 10/27/21 07:51 INR 1.02 (0.87-1.13) 10/27/21 07:51 APTT 32.2 Sec. (24.2-36.6) 10/27/21 07:51 Sodium 135 mmol/L (137-145) L 10/25/21 06:12 Potassium 3.7 mmol/L (3.6-5.0) 10/25/21 06:12 Chloride 100.5 mmol/L (98-107) 10/25/21 06:12 Carbon Dioxide 22 mmol/L (22-30) 10/25/21 06:12 Anion Gap 16 mmol/L 10/25/21 06:12 BUN 15 mg/dL (9-20) 10/25/21 06:12 Creatinine 0.7 mg/dL (0.8-1.3) L 10/27/21 07:51 Estimated GFR > 60 ml/min 10/27/21 07:51 BUN/Creatinine Ratio 21 % 10/25/21 06:12 Glucose 121 mg/dL (75-100) H 10/25/21 06:12 POC Glucose 160 mg/dL (70-105) H 10/27/21 22:21 Lactic Acid 1.90 mmol/L (0.7-2.0) 10/22/21 07:38 Calcium 8.5 mg/dL (8.4-10.2) 10/25/21 06:12 Total Bilirubin 3.20 mg/dL (0.1-1.2) H 10/25/21 06:12 AST 149 units/L (5-40) H 10/25/21 06:12 ALT 106 units/L (7-56) H 10/25/21 06:12 Alkaline Phosphatase 627 units/L (35-129) H 10/25/21 06:12 Ammonia 72.0 umol/L (25-60) H 10/20/21 16:03 Total Creatine Kinase 313 units/L (55-170) H 10/19/21 23:10 Troponin T 0.020 ng/mL (0.00-0.029) 10/19/21 23:10 Total Protein 7.0 g/dL (6.3-8.2) 10/25/21 06:12 Albumin 3.0 g/dL (3.9-5) L 10/25/21 06:12 Albumin/Globulin Ratio 0.8 % 10/25/21 06:12 Prealbumin 0.106 g/L (0.200-0.400) L 10/20/21 16:00 Tumor Marker AFP See scanned result 10/21/21 07:49 Vitamin B1 10 nmol/L (8-30) 10/20/21 16:00 Vitamin B12 1141 pg/mL (211-911) H 10/20/21 16:00 25-OH Vitamin D Total See scanned result 10/20/21 16:00 25-Hydroxy Vitamin D2 See scanned result 10/20/21 16:00 1,25 Dihydroxy Vit D2 See scanned result 10/20/21 16:00 25-Hydroxy Vitamin D3 See scanned result 10/20/21 16:00 1,25 Dihydroxy Vit D3 See scanned result 10/20/21 16:00 Folate 20.00 ng/mL (7.3-26.0) 10/20/21 16:00 TSH 0.864 mlU/mL (0.270-4.200) 10/20/21 16:00 Urine Color [place] (Yellow) 10/20/21 03:17 Urine Turbidity Clear (Clear) 10/20/21 03:17 Specific [place] (Man) 1.025 (1.003-1.030) 10/20/21 03:17 Ur Protein (Man) 1+ mg/dL (Negative) 10/20/21 03:17 Ur Ketones (Man) 1+ (Negative) 10/20/21 03:17 Ur Nitrite (Man) Negative (Negative) 10/20/21 03:17 Urine Bilirubin (Man) Small (Negative) 10/20/21 03:17 Urine Ictotest Positive (Negative) 10/20/21 03:17 Leukocyte Esterase (Man) Negative (Negative) 10/20/21 03:17 Urine WBC (Auto) 6.0 /HPF (0.0-6.0) 10/20/21 03:17 Urine RBC (Auto) 3.0 /HPF (0.0-6.0) 10/20/21 03:17 U Epithel Cells (Auto) 3.0 /HPF (0-13.0) 10/20/21 03:17 Urine RBC (Manual) Negative (Negative) 10/20/21 03:17 Urine Mucus Few /HPF 10/20/21 03:17 Salicylates < 0.3 mg/dL (2.8-20.0) L 10/19/21 23:10 Urine Opiates Screen Negative 10/20/21 03:17 Urine Methadone Screen Negative 10/20/21 03:17 Acetaminophen 5.0 ug/mL (10.0-30.0) L 10/19/21 23:10 Ur Barbiturates Screen Negative 10/20/21 03:17 Ur Phencyclidine Scrn Negative 10/20/21 03:17 Ur Amphetamines Screen Negative 10/20/21 03:17 U Benzodiazepines Scrn Negative 10/20/21 03:17 Urine Cocaine Screen Negative 10/20/21 03:17 U Marijuana (THC) Screen Negative 10/20/21 03:17 Drugs of Abuse Note Disclamer 10/20/21 03:17 Plasma/Serum Alcohol < 0.01 % (0-0.07) 10/19/21 23:10 Syphilis IgG/IgM Ab Nonreactive (NonReactive) 10/20/21 16:00 Hepatitis A IgM Ab Non-reactive (NonReactive) 10/21/21 07:49 Hep Bs Antigen Non-reactive (Negative) 10/21/21 07:49 Hep B Core IgM Ab Non-reactive (NonReactive) 10/21/21 07:49 Hepatitis C Antibody Non-reactive (NonReactive) 10/21/21 07:49 [place]/IV: Voiding Method Condom Catheter Active Medications - Current Medications Current Medications: Generic Name Dose Route Start Last Admin Trade Name Freq PRN Reason Stop Dose Admin Acetaminophen 650 mg 10/20/21 05:56 10/25/21 12:12 Acetaminophen 325 Mg Tab PO 650 mg Q4H PRN Administration Pain MILD(1-3)/Fever >100.5/CALLEJAS Albuterol 2.5 mg 10/20/21 05:56 Albuterol 2.5 Mg/3 Ml Nebu IH Q3HRT PRN Shortness Of Breath Apixaban 10 mg 10/27/21 10:00 10/27/21 22:16 Apixaban 5 Mg Tab PO 11/02/21 22:01 10 mg Q12HR BALDO Administration Protocol Dextrose 50 ml 10/20/21 05:58 Dextrose 50% In Water (25gm) 50 Ml Syringe IV Q30MIN PRN Hypoglycemia Protocol Folic Acid 1 mg 10/21/21 10:00 10/27/21 09:58 Folic Acid 1 Mg Tab PO 1 mg DAILY BALDO Administration Insulin Human Lispro 0 unit 10/20/21 07:30 10/27/21 22:24 Insulin Lispro 100 Unit/Ml SUB-Q 2 unit ACHS BALDO Administration Protocol Lactulose 20 gm 10/20/21 16:31 Lactulose 20 Gm/30 Ml Oral Liqd PO Q8H PRN Constipation Lorazepam 4 mg 10/21/21 09:05 10/22/21 04:44 Lorazepam 2 Mg Tab PO 1 mg Q1H PRN Administration CIWA-Ar 16-25 Lorazepam 4 mg 10/21/21 09:05 Lorazepam 2 Mg/Ml Vial IV Q15MIN PRN CIWA-Ar >25 Multivitamins 1 each 10/21/21 10:00 10/27/21 09:57 Multivitamins ,Therapeutic Tab PO 1 each DAILY BALDO Administration Ondansetron HCl 4 mg 10/20/21 05:56 10/20/21 18:11 Ondansetron 4 Mg/2 Ml Inj IV 4 mg Q8H PRN Administration Nausea And Vomiting Pantoprazole Sodium 40 mg 10/21/21 07:30 10/27/21 07:50 Pantoprazole 40 Mg Tab PO 40 mg QDAC BALDO Administration Sodium Chloride 10 ml 10/20/21 10:00 10/27/21 22:23 Sodium Chloride 0.9% 10 Ml Flush Syringe IV 10 ml BID BALDO Administration Sodium Chloride 10 ml 10/20/21 05:56 Sodium Chloride 0.9% 10 Ml Flush Syringe IV PRN PRN LINE FLUSH Nutrition/Malnutrition Assess - Dietary Evaluation Nutrition/Malnutrition Findings: Nutrition Notes Start: 10/20/21 12:12 Freq: Status: Active Protocol: Document 10/27/21 13:31 NHALL (Rec: 10/27/21 13:35 JONO [email or web address]) Nutrition Notes Initial or Follow up Reassessment Current Diagnosis Diabetes Other Pertinent Diagnosis Acute metabolic encephalopathy , hepatic mass Current Diet Cardiac/Consistent CHO + Glucerna BID Labs/Tests POC Glu range since last assessment: 134-235 Pertinent Medications Reviewed Height 6 ft Weight 89.3 kg [place] Body Weight (kg) 80.90 BMI 26.6 Weight change and time frame Wt change noted Weight Status Overweight Subjective/Other Information Pt has consumed 70% of meals since last assesment. Observed 50% of ONS consumed on breakfast tray today. Pt sleeping at time of visit (11: 32). Percent of energy/protein needs met: 70% energy 68% pro (does not include ONS) Burn Absent Trauma Absent Current % PO Fair (50-74%) #1 Nutrition Diagnosis Inadequate protein-energy intake As Evidenced by Signs and Symptoms PO intakes meeting >50% of estimated energy and pro needs Diagnosis Progress(for reassessment Improved documentation) Is patient on ventilator? No Is Patient Ambulatory and/or Out of Bed No REE-([place]-St. Jeor-confined to bed) 1980.716 Calculation Used for Recommendations [place]-St Jeor Additional Notes Pro needs 1-1.2g/k-107g/ day Fluid needs 1ml/kcal Nutrition Intervention Change Diet Order: Continue current diet order Add Supplement/Snack (indicate name/kcal Glucerna BID /protein ) Provides kCal: 440 Provides Protein (gm) 20 Goal #1 PO intake of meals plus ONS to meet at least 75% energy and pro needs Follow-Up By: 11/01/21 Additional Comments F/U: intakes (meals, ONS), wt
[2021-10-29 07:34] LABS: Hematocrit 38.8 % (35.5-45.6); Hemoglobin 13.3 gm/dl (11.8-15.2); Mean Corpuscular HGB Conc 34 % (32-34); Mean Corpuscular Volume 97 fl (84-94); Platelet Count 149 K/mm3 (140-440); Red Blood Count 3.98 M/mm3 (3.65-5.03); Red Cell Distribution Width 15.8 % (13.2-15.2)
--- NOTE | 2021-10-29 08:08 | Progress Note ---
Assessment and Plan Assessment and plan: #Acute metabolic encephalopathyfluctuating #Hepatic encephalopathyruled out Unremarkable CT head (10/19/2021), chest x-ray, and MRI brain without contrast (10/20/2021) Unremarkable ammonia making hepatic encephalopathy lower on the differential Neurology consulted; appreciate recs. Unable to obtain MRI abdomen and spine due to patient movement - per patients Daughter he likely has underlying dementia #Lactic acidosisresolved Likely secondary to elevated transaminases. Unremarkable urinalysis. 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 AFP > 30k Continue lactulose 20 g every 8 hours -continue eliquis 5mg BID for thrombus #Alcohol dependence-resolved - Per family, patient has not consumed alcohol in a while #Mild protein caloric malnutrition Albumin 3.0 Continue dietary supplementation #Discharge planning -will have a goals of care discussion with patient's daughter Radha about possibility of hospice. Daughter is not able to care for patient in this state. Voicemail left to Daughter. Will call again to have discussion. -CM/SW aware History Interval history: No acute events overnight per nursing. Patient more talkative today. He reports pain all over. He requested as needed pain medication, nurse made aware. He has no other come plaints at this time. Hospitalist Physical - Physical exam Narrative exam: GENERAL: Thin elderly male. In no acute distress. HEENT: Edentulous, mild scleral icterus. CHEST/LUNGS: CTAB on room air HEART/CARDIOVASCULAR: RRR. No murmur, rubs or gallops appreciated. ABDOMEN: +BS. NT/ND. SKIN: No rashes noted. NEURO: No focal motor deficit. Follows all commands. EXTREMITIES: No cyanosis, clubbing or edema. PSYCH: Patient answers questions appropriately and answers when he feels like it. - Constitutional Vitals: Temp Pulse Resp BP Pulse Ox 99.1 F 102 H 18 119/83 96 10/29/21 04:11 10/29/21 04:11 10/29/21 04:11 10/29/21 04:11 10/29/21 04:11 General appearance: Present: no acute distress, other (More alert this morning) HEART Score - HEART Score Troponin: Troponin T 0.020 ng/mL (0.00-0.029) 10/19/21 23:10 Results - Labs CBC & Chem 7: 10/29/21 05:07 10/27/21 07:51 Labs: Laboratory Last Values WBC 7.1 K/mm3 (4.5-11.0) 10/29/21 05:07 RBC 3.98 M/mm3 (3.65-5.03) 10/29/21 05:07 Hgb 13.3 gm/dl (11.8-15.2) 10/29/21 05:07 Hct 38.8 % (35.5-45.6) 10/29/21 05:07 MCV 97 fl (84-94) H 10/29/21 05:07 MCH 34 pg (28-32) H 10/29/21 05:07 MCHC 34 % (32-34) 10/29/21 05:07 RDW 15.8 % (13.2-15.2) H 10/29/21 05:07 Plt Count 149 K/mm3 (140-440) 10/29/21 05:07 Lymph % (Auto) 13.3 % (13.4-35.0) L 10/21/21 07:49 [place] % (Auto) 9.0 % (0.0-7.3) H 10/21/21 07:49 Eos % (Auto) 3.6 % (0.0-4.3) 10/21/21 07:49 Baso % (Auto) 0.3 % (0.0-1.8) 10/21/21 07:49 Lymph # (Auto) 1.1 K/mm3 (1.2-5.4) L 10/21/21 07:49 [place] # (Auto) 0.8 K/mm3 (0.0-0.8) 10/21/21 07:49 Eos # (Auto) 0.3 K/mm3 (0.0-0.4) 10/21/21 07:49 Baso # (Auto) 0.0 K/mm3 (0.0-0.1) 10/21/21 07:49 Seg Neutrophils % 73.8 % (40.0-70.0) H 10/21/21 07:49 Seg Neutrophils # 6.3 K/mm3 (1.8-7.7) 10/21/21 07:49 PT 14.5 Sec. (12.2-14.9) 10/27/21 07:51 INR 1.02 (0.87-1.13) 10/27/21 07:51 APTT 32.2 Sec. (24.2-36.6) 10/27/21 07:51 Sodium 135 mmol/L (137-145) L 10/25/21 06:12 Potassium 3.7 mmol/L (3.6-5.0) 10/25/21 06:12 Chloride 100.5 mmol/L (98-107) 10/25/21 06:12 Carbon Dioxide 22 mmol/L (22-30) 10/25/21 06:12 Anion Gap 16 mmol/L 10/25/21 06:12 BUN 15 mg/dL (9-20) 10/25/21 06:12 Creatinine 0.7 mg/dL (0.8-1.3) L 10/27/21 07:51 Estimated GFR > 60 ml/min 10/27/21 07:51 BUN/Creatinine Ratio 21 % 10/25/21 06:12 Glucose 121 mg/dL (75-100) H 10/25/21 06:12 POC Glucose 150 mg/dL (70-105) H 10/28/21 22:06 Lactic Acid 1.90 mmol/L (0.7-2.0) 10/22/21 07:38 Calcium 8.5 mg/dL (8.4-10.2) 10/25/21 06:12 Total Bilirubin 3.20 mg/dL (0.1-1.2) H 10/25/21 06:12 AST 149 units/L (5-40) H 10/25/21 06:12 ALT 106 units/L (7-56) H 10/25/21 06:12 Alkaline Phosphatase 627 units/L (35-129) H 10/25/21 06:12 Ammonia 72.0 umol/L (25-60) H 10/20/21 16:03 Total Creatine Kinase 313 units/L (55-170) H 10/19/21 23:10 Troponin T 0.020 ng/mL (0.00-0.029) 10/19/21 23:10 Total Protein 7.0 g/dL (6.3-8.2) 10/25/21 06:12 Albumin 3.0 g/dL (3.9-5) L 10/25/21 06:12 Albumin/Globulin Ratio 0.8 % 10/25/21 06:12 Prealbumin 0.106 g/L (0.200-0.400) L 10/20/21 16:00 Tumor Marker AFP See scanned result 10/21/21 07:49 Vitamin B1 10 nmol/L (8-30) 10/20/21 16:00 Vitamin B12 1141 pg/mL (211-911) H 10/20/21 16:00 25-OH Vitamin D Total See scanned result 10/20/21 16:00 25-Hydroxy Vitamin D2 See scanned result 10/20/21 16:00 1,25 Dihydroxy Vit D2 See scanned result 10/20/21 16:00 25-Hydroxy Vitamin D3 See scanned result 10/20/21 16:00 1,25 Dihydroxy Vit D3 See scanned result 10/20/21 16:00 Folate 20.00 ng/mL (7.3-26.0) 10/20/21 16:00 TSH 0.864 mlU/mL (0.270-4.200) 10/20/21 16:00 Urine Color [place] (Yellow) 10/20/21 03:17 Urine Turbidity Clear (Clear) 10/20/21 03:17 Specific [place] (Man) 1.025 (1.003-1.030) 10/20/21 03:17 Ur Protein (Man) 1+ mg/dL (Negative) 10/20/21 03:17 Ur Ketones (Man) 1+ (Negative) 10/20/21 03:17 Ur Nitrite (Man) Negative (Negative) 10/20/21 03:17 Urine Bilirubin (Man) Small (Negative) 10/20/21 03:17 Urine Ictotest Positive (Negative) 10/20/21 03:17 Leukocyte Esterase (Man) Negative (Negative) 10/20/21 03:17 Urine WBC (Auto) 6.0 /HPF (0.0-6.0) 10/20/21 03:17 Urine RBC (Auto) 3.0 /HPF (0.0-6.0) 10/20/21 03:17 U Epithel Cells (Auto) 3.0 /HPF (0-13.0) 10/20/21 03:17 Urine RBC (Manual) Negative (Negative) 10/20/21 03:17 Urine Mucus Few /HPF 10/20/21 03:17 Salicylates < 0.3 mg/dL (2.8-20.0) L 10/19/21 23:10 Urine Opiates Screen Negative 10/20/21 03:17 Urine Methadone Screen Negative 10/20/21 03:17 Acetaminophen 5.0 ug/mL (10.0-30.0) L 10/19/21 23:10 Ur Barbiturates Screen Negative 10/20/21 03:17 Ur Phencyclidine Scrn Negative 10/20/21 03:17 Ur Amphetamines Screen Negative 10/20/21 03:17 U Benzodiazepines Scrn Negative 10/20/21 03:17 Urine Cocaine Screen Negative 10/20/21 03:17 U Marijuana (THC) Screen Negative 10/20/21 03:17 Drugs of Abuse Note Disclamer 10/20/21 03:17 Plasma/Serum Alcohol < 0.01 % (0-0.07) 10/19/21 23:10 Syphilis IgG/IgM Ab Nonreactive (NonReactive) 10/20/21 16:00 Hepatitis A IgM Ab Non-reactive (NonReactive) 10/21/21 07:49 Hep Bs Antigen Non-reactive (Negative) 10/21/21 07:49 Hep B Core IgM Ab Non-reactive (NonReactive) 10/21/21 07:49 Hepatitis C Antibody Non-reactive (NonReactive) 10/21/21 07:49 Bradford/IV: Voiding Method Condom Catheter Active Medications - Current Medications Current Medications: Generic Name Dose Route Start Last Admin Trade Name Freq PRN Reason Stop Dose Admin Acetaminophen 650 mg 10/20/21 05:56 10/25/21 12:12 Acetaminophen 325 Mg Tab PO 650 mg Q4H PRN Administration Pain MILD(1-3)/Fever >100.5/CALLEJAS Albuterol 2.5 mg 10/20/21 05:56 Albuterol 2.5 Mg/3 Ml Nebu IH Q3HRT PRN Shortness Of Breath Apixaban 10 mg 10/27/21 10:00 10/28/21 22:59 Apixaban 5 Mg Tab PO 11/02/21 22:01 10 mg Q12HR BALDO Administration Protocol Dextrose 50 ml 10/20/21 05:58 Dextrose 50% In Water (25gm) 50 Ml Syringe IV Q30MIN PRN Hypoglycemia Protocol Folic Acid 1 mg 10/21/21 10:00 10/28/21 09:07 Folic Acid 1 Mg Tab PO 1 mg DAILY BALDO Administration Insulin Human Lispro 0 unit 10/20/21 07:30 10/28/21 22:59 Insulin Lispro 100 Unit/Ml SUB-Q 2 unit ACHS BALDO Administration Protocol Lactulose 20 gm 10/20/21 16:31 Lactulose 20 Gm/30 Ml Oral Liqd PO Q8H PRN Constipation Lorazepam 4 mg 10/21/21 09:05 10/22/21 04:44 Lorazepam 2 Mg Tab PO 1 mg Q1H PRN Administration CIWA-Ar 16-25 Lorazepam 4 mg 10/21/21 09:05 Lorazepam 2 Mg/Ml Vial IV Q15MIN PRN CIWA-Ar >25 Multivitamins 1 each 10/21/21 10:00 10/28/21 09:07 Multivitamins ,Therapeutic Tab PO 1 each DAILY BALDO Administration Ondansetron HCl 4 mg 10/20/21 05:56 10/20/21 18:11 Ondansetron 4 Mg/2 Ml Inj IV 4 mg Q8H PRN Administration Nausea And Vomiting Pantoprazole Sodium 40 mg 10/21/21 07:30 10/28/21 09:08 Pantoprazole 40 Mg Tab PO 40 mg QDAC BALDO Administration Sodium Chloride 10 ml 10/20/21 10:00 10/28/21 22:59 Sodium Chloride 0.9% 10 Ml Flush Syringe IV 10 ml BID BALDO Administration Sodium Chloride 10 ml 10/20/21 05:56 Sodium Chloride 0.9% 10 Ml Flush Syringe IV PRN PRN LINE FLUSH Nutrition/Malnutrition Assess - Dietary Evaluation Nutrition/Malnutrition Findings: Nutrition Notes Start: 10/20/21 12:12 Freq: Status: Active Protocol: Document 10/27/21 13:31 JONO (Rec: 10/27/21 13:35 [email or web address] [id number]) Nutrition Notes Initial or Follow up Reassessment Current Diagnosis Diabetes Other Pertinent Diagnosis Acute metabolic encephalopathy , hepatic mass Current Diet Cardiac/Consistent CHO + Glucerna BID Labs/Tests POC Glu range since last assessment: 134-235 Pertinent Medications Reviewed Height 6 ft Weight 89.3 kg [place] Body Weight (kg) 80.90 BMI 26.6 Weight change and time frame Wt change noted Weight Status Overweight Subjective/Other Information Pt has consumed 70% of meals since last assesment. Observed 50% of ONS consumed on breakfast tray today. Pt sleeping at time of visit (11: 32). Percent of energy/protein needs met: 70% energy 68% pro (does not include ONS) Burn Absent Trauma Absent Current % PO Fair (50-74%) #1 Nutrition Diagnosis Inadequate protein-energy intake As Evidenced by Signs and Symptoms PO intakes meeting >50% of estimated energy and pro needs Diagnosis Progress(for reassessment Improved documentation) Is patient on ventilator? No Is Patient Ambulatory and/or Out of Bed No REE-([place]-St. Jeor-confined to bed) 1980.726 [facility] Additional Notes Pro needs 1-1.2g/k-107g/ day Fluid needs 1ml/kcal Nutrition Intervention Change Diet Order: Continue current diet order Add Supplement/Snack (indicate name/kcal Glucerna BID /protein ) Provides kCal: 440 Provides Protein (gm) 20 Goal #1 PO intake of meals plus ONS to meet at least 75% energy and pro needs Follow-Up By: 11/01/21 Additional Comments F/U: intakes (meals, ONS), wt
[2021-10-29] MEDS: INSULIN LISPRO 100 UNIT/ML SUB-Q SCH ×4 (09:22→22:21)
[2021-10-29] MEDS: PANTOPRAZOLE 40 MG TAB PO SCH (09:23)
[2021-10-29] MEDS: APIXABAN 5 MG TAB PO SCH ×2 (09:23→22:09)
[2021-10-29] MEDS: FOLIC ACID 1 MG TAB PO SCH (09:24)
[2021-10-29] MEDS: MULTIVITAMINS ,THERAPEUTIC TAB PO SCH (09:24)
[2021-10-29] MEDS: ACETAMINOPHEN 325 MG TAB PO PRN (12:21)
[2021-10-30] MEDS: MULTIVITAMINS ,THERAPEUTIC TAB PO SCH (09:12)
[2021-10-30] MEDS: APIXABAN 5 MG TAB PO SCH ×2 (09:12→22:18)
[2021-10-30] MEDS: FOLIC ACID 1 MG TAB PO SCH (09:12)
[2021-10-30] MEDS: PANTOPRAZOLE 40 MG TAB PO SCH (09:13)
[2021-10-30] MEDS: INSULIN LISPRO 100 UNIT/ML SUB-Q SCH ×4 (11:09→23:22)
--- NOTE | 2021-10-30 14:02 | Hem/Onc Progress Note ---
Subjective Date of service: 10/30/21 Interval history: Heme/Onc Progress Note Seen via [facility] CPT 23133 Dx SMV thrombosis 81yo male with altered mental status Past medical history of diabetes and depression. CT scan of the head shows no acute intracranial abnormality, patient ammonia is 28.0 but lactic acid is 2.70. Imaging/labs show probable cirrhosis. In addition, he is in the midst of evaluation at the [facility] for dementia. He has a possible liver mass as well as possible PV and SMV thrombosis based on the CT scan. Hematology/Oncology following for SMV thrombosis. A/P CT with contrast (10/20/2021): Cirrhosis of the liver with mild splenomegaly and ascites; 3 cm nodular density in the left hepatic lobe; partial thrombosis of the main portal vein and proximal right and left portal vein; poor opacification of the superior mesenteric vein which is suspicious for thrombosis; no evidence of bowel obstruction or obvious CT findings of ischemia at this time. AFP 34,173.7 H DATA REVIEWED BELOW IMP: Presumed Hepatocellular carcinoma , AFP 34,173.7 H , nodular mass on left hepatic lobe Partial thrombosis of main portal vein, superior mesenteric thrombosis PLAN: On Eliquis now. No liver mass biopsy needed with AFP >34,000 Not a candidate for anti tumor treatment End of life/Hospice discussion is appropriate for Onc perspective Discussion held with daughter Radha. Case d/w Dr. Kaden Tom Laboratory Last Values WBC 7.1 K/mm3 (4.5-11.0) 10/29/21 05:07 Hgb 13.3 gm/dl (11.8-15.2) 10/29/21 05:07 Hct 38.8 % (35.5-45.6) 10/29/21 05:07 MCV 97 fl (84-94) H 10/29/21 05:07 Plt Count 149 K/mm3 (140-440) 10/29/21 05:07 Lymph % (Auto) 13.3 % (13.4-35.0) L 10/21/21 07:49 [place] % (Auto) 9.0 % (0.0-7.3) H 10/21/21 07:49 Lymph # (Auto) 1.1 K/mm3 (1.2-5.4) L 10/21/21 07:49 Seg Neutrophils % 73.8 % (40.0-70.0) H 10/21/21 07:49 PT 14.5 Sec. (12.2-14.9) 10/27/21 07:51 INR 1.02 (0.87-1.13) 10/27/21 07:51 APTT 32.2 Sec. (24.2-36.6) 10/27/21 07:51 Creatinine 0.7 mg/dL (0.8-1.3) L 10/30/21 05:32 Total Bilirubin 3.20 mg/dL (0.1-1.2) H 10/25/21 06:12 AST 149 units/L (5-40) H 10/25/21 06:12 ALT 106 units/L (7-56) H 10/25/21 06:12 Alkaline Phosphatase 627 units/L (35-129) H 10/25/21 06:12 Ammonia 72.0 umol/L (25-60) H 10/20/21 16:03 Total Creatine Kinase 313 units/L (55-170) H 10/19/21 23:10 Tumor Marker AFP See scanned result 10/21/21 07:49 Syphilis IgG/IgM Ab Nonreactive (NonReactive) 10/20/21 16:00 Hepatitis A IgM Ab Non-reactive (NonReactive) 10/21/21 07:49 Hep Bs Antigen Non-reactive (Negative) 10/21/21 07:49 Hep B Core IgM Ab Non-reactive (NonReactive) 10/21/21 07:49 Hepatitis C Antibody Non-reactive (NonReactive) 10/21/21 07:49 Objective - Constitutional Vitals: Last Vital Signs Temp 97.9 F 10/30/21 05:31 Pulse 87 10/30/21 05:31 Resp 20 10/30/21 11:00 BP 119/81 10/30/21 05:31 Pulse Ox 98 10/30/21 11:00 - Labs Lab Results: Laboratory Results - last 24 hr 10/29/21 10/30/21 10/30/21 20:15 05:32 07:29 Creatinine 0.7 L Estimated GFR > 60 POC Glucose 104 157 H 10/30/21 11:22 Creatinine Estimated GFR POC Glucose 198 H Medications & Allergies - Medications Allergies/Adverse Reactions: Allergies No Known Allergies Allergy (Verified 10/20/21 06:04) Home Medications: Home Medications Medication Instructions Recorded Confirmed Last Taken Type No Known Home Medications [No 10/30/21 10/30/21 Unknown History Reported Home Medications] Active Medications: Generic Name Dose Route Start Last Admin Trade Name Freq PRN Reason Stop Dose Admin Acetaminophen 650 mg 10/20/21 05:56 10/29/21 12:21 Acetaminophen 325 Mg Tab PO 650 mg Q4H PRN Administration Pain MILD(1-3)/Fever >100.5/CALLEJAS Albuterol 2.5 mg 10/20/21 05:56 Albuterol 2.5 Mg/3 Ml Nebu IH Q3HRT PRN Shortness Of Breath Apixaban 10 mg 10/27/21 10:00 10/30/21 09:12 Apixaban 5 Mg Tab PO 11/02/21 22:01 10 mg Q12HR BALDO Administration Protocol Dextrose 50 ml 10/20/21 05:58 Dextrose 50% In Water (25gm) 50 Ml Syringe IV Q30MIN PRN Hypoglycemia Protocol Folic Acid 1 mg 10/21/21 10:00 10/30/21 09:12 Folic Acid 1 Mg Tab PO 1 mg DAILY BALDO Administration Insulin Human Lispro 0 unit 10/20/21 07:30 10/30/21 12:02 Insulin Lispro 100 Unit/Ml SUB-Q 2 unit ACHS BALDO Administration Protocol Lactulose 20 gm 10/20/21 16:31 Lactulose 20 Gm/30 Ml Oral Liqd PO Q8H PRN Constipation Lorazepam 4 mg 10/21/21 09:05 10/22/21 04:44 Lorazepam 2 Mg Tab PO 1 mg Q1H PRN Administration CIWA-Ar 16-25 Lorazepam 4 mg 10/21/21 09:05 Lorazepam 2 Mg/Ml Vial IV Q15MIN PRN CIWA-Ar >25 Multivitamins 1 each 10/21/21 10:00 10/30/21 09:12 Multivitamins ,Therapeutic Tab PO 1 each DAILY BALDO Administration Ondansetron HCl 4 mg 10/20/21 05:56 10/20/21 18:11 Ondansetron 4 Mg/2 Ml Inj IV 4 mg Q8H PRN Administration Nausea And Vomiting Pantoprazole Sodium 40 mg 10/21/21 07:30 10/30/21 09:13 Pantoprazole 40 Mg Tab PO 40 mg QDAC BALDO Administration Sodium Chloride 10 ml 10/20/21 10:00 10/30/21 09:12 Sodium Chloride 0.9% 10 Ml Flush Syringe IV 10 ml BID BALDO Administration Sodium Chloride 10 ml 10/20/21 05:56 Sodium Chloride 0.9% 10 Ml Flush Syringe IV PRN PRN LINE FLUSH
--- NOTE | 2021-10-30 15:21 | Progress Note ---
Assessment and Plan Assessment and plan: #Acute metabolic encephalopathyfluctuating #Hepatic encephalopathyruled out Unremarkable CT head (10/19/2021), chest x-ray, and MRI brain without contrast (10/20/2021) Unremarkable ammonia making hepatic encephalopathy lower on the differential Neurology consulted; appreciate recs. Unable to obtain MRI abdomen and spine due to patient movement - per patients Daughter he likely has underlying dementia #Lactic acidosisresolved Likely secondary to elevated transaminases. Unremarkable urinalysis. 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 AFP > 30k Continue lactulose 20 g every 8 hours -continue eliquis 5mg BID for thrombus #Alcohol dependence-resolved - Per family, patient has not consumed alcohol in a while #Mild protein caloric malnutrition Albumin 3.0 Continue dietary supplementation #Advanced care planning -Disease education, care plan, diagnosis, prognosis discussed with next of kin and daughter Radha Ervin. Decision was made for the patient to be discharged with hospice due to poor prognosis. Family understands and acknowledges current plan. -Time: +30 minutes History Interval history: No acute events overnight per nursing. Patient examined eating breakfast. He has no pain or discomfort at this time. Hospitalist Physical - Physical exam Narrative exam: GENERAL: Thin elderly male. In no acute distress. HEENT: Edentulous, mild scleral icterus. CHEST/LUNGS: CTAB on room air HEART/CARDIOVASCULAR: RRR. No murmur, rubs or gallops appreciated. ABDOMEN: +BS. NT/ND. NEURO: No focal motor deficit. Follows all commands. EXTREMITIES: No cyanosis, clubbing or edema. PSYCH: Patient answers questions appropriately. - Constitutional Vitals: Temp Pulse Resp BP Pulse Ox 97.9 F 87 20 119/81 98 10/30/21 05:31 10/30/21 05:31 10/30/21 11:00 10/30/21 05:31 10/30/21 11:00 General appearance: Present: no acute distress, other (More alert this morning) HEART Score - HEART Score Troponin: Troponin T 0.020 ng/mL (0.00-0.029) 10/19/21 23:10 Results - Labs CBC & Chem 7: 10/29/21 05:07 10/30/21 05:32 Labs: Laboratory Last Values WBC 7.1 K/mm3 (4.5-11.0) 10/29/21 05:07 RBC 3.98 M/mm3 (3.65-5.03) 10/29/21 05:07 Hgb 13.3 gm/dl (11.8-15.2) 10/29/21 05:07 Hct 38.8 % (35.5-45.6) 10/29/21 05:07 MCV 97 fl (84-94) H 10/29/21 05:07 MCH 34 pg (28-32) H 10/29/21 05:07 MCHC 34 % (32-34) 10/29/21 05:07 RDW 15.8 % (13.2-15.2) H 10/29/21 05:07 Plt Count 149 K/mm3 (140-440) 10/29/21 05:07 Lymph % (Auto) 13.3 % (13.4-35.0) L 10/21/21 07:49 [place] % (Auto) 9.0 % (0.0-7.3) H 10/21/21 07:49 Eos % (Auto) 3.6 % (0.0-4.3) 10/21/21 07:49 Baso % (Auto) 0.3 % (0.0-1.8) 10/21/21 07:49 Lymph # (Auto) 1.1 K/mm3 (1.2-5.4) L 10/21/21 07:49 [place] # (Auto) 0.8 K/mm3 (0.0-0.8) 10/21/21 07:49 Eos # (Auto) 0.3 K/mm3 (0.0-0.4) 10/21/21 07:49 Baso # (Auto) 0.0 K/mm3 (0.0-0.1) 10/21/21 07:49 Seg Neutrophils % 73.8 % (40.0-70.0) H 10/21/21 07:49 Seg Neutrophils # 6.3 K/mm3 (1.8-7.7) 10/21/21 07:49 PT 14.5 Sec. (12.2-14.9) 10/27/21 07:51 INR 1.02 (0.87-1.13) 10/27/21 07:51 APTT 32.2 Sec. (24.2-36.6) 10/27/21 07:51 Sodium 135 mmol/L (137-145) L 10/25/21 06:12 Potassium 3.7 mmol/L (3.6-5.0) 10/25/21 06:12 Chloride 100.5 mmol/L (98-107) 10/25/21 06:12 Carbon Dioxide 22 mmol/L (22-30) 10/25/21 06:12 Anion Gap 16 mmol/L 10/25/21 06:12 BUN 15 mg/dL (9-20) 10/25/21 06:12 Creatinine 0.7 mg/dL (0.8-1.3) L 10/30/21 05:32 Estimated GFR > 60 ml/min 10/30/21 05:32 BUN/Creatinine Ratio 21 % 10/25/21 06:12 Glucose 121 mg/dL (75-100) H 10/25/21 06:12 POC Glucose 198 mg/dL (70-105) H 10/30/21 11:22 Lactic Acid 1.90 mmol/L (0.7-2.0) 10/22/21 07:38 Calcium 8.5 mg/dL (8.4-10.2) 10/25/21 06:12 Total Bilirubin 3.20 mg/dL (0.1-1.2) H 10/25/21 06:12 AST 149 units/L (5-40) H 10/25/21 06:12 ALT 106 units/L (7-56) H 10/25/21 06:12 Alkaline Phosphatase 627 units/L (35-129) H 10/25/21 06:12 Ammonia 72.0 umol/L (25-60) H 10/20/21 16:03 Total Creatine Kinase 313 units/L (55-170) H 10/19/21 23:10 Troponin T 0.020 ng/mL (0.00-0.029) 10/19/21 23:10 Total Protein 7.0 g/dL (6.3-8.2) 10/25/21 06:12 Albumin 3.0 g/dL (3.9-5) L 10/25/21 06:12 Albumin/Globulin Ratio 0.8 % 10/25/21 06:12 Prealbumin 0.106 g/L (0.200-0.400) L 10/20/21 16:00 Tumor Marker AFP See scanned result 10/21/21 07:49 Vitamin B1 10 nmol/L (8-30) 10/20/21 16:00 Vitamin B12 1141 pg/mL (211-911) H 10/20/21 16:00 25-OH Vitamin D Total See scanned result 10/20/21 16:00 25-Hydroxy Vitamin D2 See scanned result 10/20/21 16:00 1,25 Dihydroxy Vit D2 See scanned result 10/20/21 16:00 25-Hydroxy Vitamin D3 See scanned result 10/20/21 16:00 1,25 Dihydroxy Vit D3 See scanned result 10/20/21 16:00 Folate 20.00 ng/mL (7.3-26.0) 10/20/21 16:00 TSH 0.864 mlU/mL (0.270-4.200) 10/20/21 16:00 Urine Color [place] (Yellow) 10/20/21 03:17 Urine Turbidity Clear (Clear) 10/20/21 03:17 Specific [place] (Man) 1.025 (1.003-1.030) 10/20/21 03:17 Ur Protein (Man) 1+ mg/dL (Negative) 10/20/21 03:17 Ur Ketones (Man) 1+ (Negative) 10/20/21 03:17 Ur Nitrite (Man) Negative (Negative) 10/20/21 03:17 Urine Bilirubin (Man) Small (Negative) 10/20/21 03:17 Urine Ictotest Positive (Negative) 10/20/21 03:17 Leukocyte Esterase (Man) Negative (Negative) 10/20/21 03:17 Urine WBC (Auto) 6.0 /HPF (0.0-6.0) 10/20/21 03:17 Urine RBC (Auto) 3.0 /HPF (0.0-6.0) 10/20/21 03:17 U Epithel Cells (Auto) 3.0 /HPF (0-13.0) 10/20/21 03:17 Urine RBC (Manual) Negative (Negative) 10/20/21 03:17 Urine Mucus Few /HPF 10/20/21 03:17 Salicylates < 0.3 mg/dL (2.8-20.0) L 10/19/21 23:10 Urine Opiates Screen Negative 10/20/21 03:17 Urine Methadone Screen Negative 10/20/21 03:17 Acetaminophen 5.0 ug/mL (10.0-30.0) L 10/19/21 23:10 Ur Barbiturates Screen Negative 10/20/21 03:17 Ur Phencyclidine Scrn Negative 10/20/21 03:17 Ur Amphetamines Screen Negative 10/20/21 03:17 U Benzodiazepines Scrn Negative 10/20/21 03:17 Urine Cocaine Screen Negative 10/20/21 03:17 U Marijuana (THC) Screen Negative 10/20/21 03:17 Drugs of Abuse Note Disclamer 10/20/21 03:17 Plasma/Serum Alcohol < 0.01 % (0-0.07) 10/19/21 23:10 Syphilis IgG/IgM Ab Nonreactive (NonReactive) 10/20/21 16:00 Hepatitis A IgM Ab Non-reactive (NonReactive) 10/21/21 07:49 Hep Bs Antigen Non-reactive (Negative) 10/21/21 07:49 Hep B Core IgM Ab Non-reactive (NonReactive) 10/21/21 07:49 Hepatitis C Antibody Non-reactive (NonReactive) 10/21/21 07:49 [place]/IV: Voiding Method Condom Catheter Active Medications - Current Medications Current Medications: Generic Name Dose Route Start Last Admin Trade Name Freq PRN Reason Stop Dose Admin Acetaminophen 650 mg 10/20/21 05:56 10/29/21 12:21 Acetaminophen 325 Mg Tab PO 650 mg Q4H PRN Administration Pain MILD(1-3)/Fever >100.5/CALLEJAS Albuterol 2.5 mg 10/20/21 05:56 Albuterol 2.5 Mg/3 Ml Nebu IH Q3HRT PRN Shortness Of Breath Apixaban 10 mg 10/27/21 10:00 10/30/21 09:12 Apixaban 5 Mg Tab PO 11/02/21 22:01 10 mg Q12HR BALDO Administration Protocol Dextrose 50 ml 10/20/21 05:58 Dextrose 50% In Water (25gm) 50 Ml Syringe IV Q30MIN PRN Hypoglycemia Protocol Folic Acid 1 mg 10/21/21 10:00 10/30/21 09:12 Folic Acid 1 Mg Tab PO 1 mg DAILY BALDO Administration Insulin Human Lispro 0 unit 10/20/21 07:30 10/30/21 12:02 Insulin Lispro 100 Unit/Ml SUB-Q 2 unit ACHS BALDO Administration Protocol Lactulose 20 gm 10/20/21 16:31 Lactulose 20 Gm/30 Ml Oral Liqd PO Q8H PRN Constipation Lorazepam 4 mg 10/21/21 09:05 10/22/21 04:44 Lorazepam 2 Mg Tab PO 1 mg Q1H PRN Administration CIWA-Ar 16-25 Lorazepam 4 mg 10/21/21 09:05 Lorazepam 2 Mg/Ml Vial IV Q15MIN PRN CIWA-Ar >25 Multivitamins 1 each 10/21/21 10:00 10/30/21 09:12 Multivitamins ,Therapeutic Tab PO 1 each DAILY BALDO Administration Ondansetron HCl 4 mg 10/20/21 05:56 10/20/21 18:11 Ondansetron 4 Mg/2 Ml Inj IV 4 mg Q8H PRN Administration Nausea And Vomiting Pantoprazole Sodium 40 mg 10/21/21 07:30 10/30/21 09:13 Pantoprazole 40 Mg Tab PO 40 mg QDAC BALDO Administration Sodium Chloride 10 ml 10/20/21 10:00 10/30/21 09:12 Sodium Chloride 0.9% 10 Ml Flush Syringe IV 10 ml BID BALDO Administration Sodium Chloride 10 ml 10/20/21 05:56 Sodium Chloride 0.9% 10 Ml Flush Syringe IV PRN PRN LINE FLUSH Nutrition/Malnutrition Assess - Dietary Evaluation Nutrition/Malnutrition Findings: Nutrition Notes Start: 10/20/21 12:12 Freq: Status: Active Protocol: Document 10/27/21 13:31 JONO (Rec: 10/27/21 13:35 JONO [email or web address]) Nutrition Notes Initial or Follow up Reassessment Current Diagnosis Diabetes Other Pertinent Diagnosis Acute metabolic encephalopathy , hepatic mass Current Diet Cardiac/Consistent CHO + Glucerna BID Labs/Tests POC Glu range since last assessment: 134-235 Pertinent Medications Reviewed Height 6 ft Weight 89.3 kg [place] Body Weight (kg) 80.90 BMI 26.6 Weight change and time frame Wt change noted Weight Status Overweight Subjective/Other Information Pt has consumed 70% of meals since last assesment. Observed 50% of ONS consumed on breakfast tray today. Pt sleeping at time of visit (11: 32). Percent of energy/protein needs met: 70% energy 68% pro (does not include ONS) Burn Absent Trauma Absent Current % PO Fair (50-74%) #1 Nutrition Diagnosis Inadequate protein-energy intake As Evidenced by Signs and Symptoms PO intakes meeting >50% of estimated energy and pro needs Diagnosis Progress(for reassessment Improved documentation) Is patient on ventilator? No Is Patient Ambulatory and/or Out of Bed No REE-([facility]-confined to bed) 1981.716 Calculation Used for Recommendations [facility] Additional Notes Pro needs 1-1.2g/k-107g/ day Fluid needs 1ml/kcal Nutrition Intervention Change Diet Order: Continue current diet order Add Supplement/Snack (indicate name/kcal Glucerna BID /protein ) Provides kCal: 440 Provides Protein (gm) 20 Goal #1 PO intake of meals plus ONS to meet at least 75% energy and pro needs Follow-Up By: 11/01/21 Additional Comments F/U: intakes (meals, ONS), wt
[2021-10-31 07:17] LABS: Hematocrit 40.8 % (35.5-45.6); Hemoglobin 13.4 gm/dl (11.8-15.2); Mean Corpuscular HGB Conc 33 % (32-34); Mean Corpuscular Volume 99 fl (84-94); Platelet Count 154 K/mm3 (140-440); Red Blood Count 4.14 M/mm3 (3.65-5.03); Red Cell Distribution Width 16.3 % (13.2-15.2)
[2021-10-31] MEDS: MULTIVITAMINS ,THERAPEUTIC TAB PO SCH (09:03)
[2021-10-31] MEDS: APIXABAN 5 MG TAB PO SCH ×2 (09:03→22:15)
[2021-10-31] MEDS: PANTOPRAZOLE 40 MG TAB PO SCH (09:03)
[2021-10-31] MEDS: INSULIN LISPRO 100 UNIT/ML SUB-Q SCH ×4 (09:04→22:20)
[2021-10-31] MEDS: FOLIC ACID 1 MG TAB PO SCH (09:04)
--- NOTE | 2021-10-31 17:05 | Discharge Summary ---
Providers - Providers Date of Admission: 10/20/21 05:56 Date of discharge: 10/31/21 Attending physician: MARCELLE HARP MD 10/20/21 05:56 Consult to Physician [CONS] Routine Comment: Consulting Provider: GIOVANNI REDD Physician Instructions: Reason For Exam: ams 10/20/21 05:58 Consult to Dietitian/Nutrition [CONS] Routine Physician Instructions: Reason For Exam: Reason for Consult: Diet education 10/20/21 13:00 Consult to Physician [CONS] Routine Comment: Consulting Provider: RIO FIORE Physician Instructions: Reason For Exam: Possible partial SMV thrombosis + cirrhosis 10/26/21 08:14 Physical Therapy Evaluation and Treat [CONS] Routine Comment: Reason For Exam: evaluate gait 10/26/21 08:16 Consult to Physician [CONS] Routine Comment: Consulting Provider: JESSICA HICKMAN Physician Instructions: Reason For Exam: SMV thrombus 10/31/21 09:34 Occupational Therapy Evaluate and Treat [CONS] Urgent Comment: Reason For Exam: snf placement Primary care physician: UMANG WEBSTER Hospitalization Reason for admission: Acute metabolic encephalopathy, lactic acidosis Condition: Stable Pertinent studies: Reviewed. Procedures: None. Hospital course: Patient is a 81-year-old male with alcoholic cirrhosis and alcohol dependence who presented to the ED via EMS due to family describing him as soon refusing to answer questions. Patient's daughter did endorse that he and her had gotten into a verbal arguments, and this might be the cause of him not speaking. In the ED, the patient was found in a neglected state with strong odor of alcohol and feces. In the ED, patient was found to be hemodynamically stable alert and oriented x1. Patient's labs were relatively unremarkable. Patient was placed on CIWA protocol due to concerns for alcohol withdrawal. Patient also underwent CT head noncontrast, chest x-ray, and MRI brain were found to be unremarkable. Neurology was consulted for further management; however, the patient was unable to obtain MRI abdomen and spine due to constant movement. 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 Patient's AFP was found to be >30,000. Patient was started on Eliquis 5 mg twice daily for treatment of his thrombus. The patient's family has agreed for the patient to be discharged home with hospice. The patient is medically clear for discharge. Disposition: 50 HOSPICE/HOME Final Discharge Diagnosis (Prints w/discharge instructions): Acute metabolic encephalopathy, hepatic encephalopathyruled out, lactic acidosis, elevated transaminases, decompensated alcoholic cirrhosis, nodular mass of the left hepatic lobelikely hepatocellular carcinoma, partial thrombosis of main portal vein, alcohol dependence, mild protein caloric malnutrition Time spent for discharge: 45 min Core Measure Documentation - Palliative Care Palliative Care/ Comfort Measures: Not Applicable - Core Measures Any of the following diagnoses?: none Exam - Constitutional Vitals: Temp Pulse Resp BP Pulse Ox 97.6 F 85 18 122/76 98 10/31/21 04:45 10/31/21 04:45 10/31/21 04:45 10/31/21 04:45 10/31/21 14:00 General appearance: Present: no acute distress, cachectic - EENT Eyes: Present: PERRL, EOM intact ENT: hearing intact, clear oral mucosa, poor dentition, edentulous - Neck Neck: Present: supple, normal ROM - Respiratory Respiratory effort: normal Respiratory: bilateral: CTA - Cardiovascular Rhythm: regular Heart Sounds: Present: S1 & S2 - Extremities Extremities: no ischemia, pulses intact, pulses symmetrical, No edema, normal temperature, normal color Peripheral Pulses: within normal limits - Abdominal General gastrointestinal: Present: soft, non-tender, non-distended, normal bowel sounds Male genitourinary: Present: deferred - Rectal Rectal Exam: deferred - Integumentary Integumentary: Present: clear, warm - Musculoskeletal Musculoskeletal: generalized weakness - Psychiatric Psychiatric: appropriate mood/affect, cooperative - Neurologic Neurologic: CNII-XII intact - Allied Health Allied health notes reviewed: nursing Plan Activity: advance as tolerated Diet: regular Additional Instructions: Patient is a 81-year-old male with alcoholic cirrhosis and alcohol dependence who presented to the ED via EMS due to family describing him as soon refusing to answer questions. Patient's daughter did endorse that he and her had gotten into a verbal arguments, and this might be the cause of him not speaking. In the ED, the patient was found in a neglected state with strong odor of alcohol and feces. In the ED, patient was found to be hemodynamically stable alert and oriented x1. Patient's labs were relatively unremarkable. Patient was placed on CIWA protocol due to concerns for alcohol withdrawal. Patient also underwent CT head noncontrast, chest x-ray, and MRI brain were found to be unremarkable. Neurology was consulted for further management; however, the patient was unable to obtain MRI abdomen and spine due to constant movement. 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 Patient's AFP was found to be >30,000. Patient was started on Eliquis 5 mg twice daily for treatment of his thrombus. The patient's family has agreed for the patient to be discharged home with hospice. The patient is medically clear for discharge. Care Plan Goals: Patient is medically clear for discharge. Assessment: Patient is a 81-year-old male with alcoholic cirrhosis and alcohol dependence who presented to the ED via EMS due to family describing him as soon refusing to answer questions. Patient's daughter did endorse that he and her had gotten into a verbal arguments, and this might be the cause of him not speaking. In the ED, the patient was found in a neglected state with strong odor of alcohol and feces. In the ED, patient was found to be hemodynamically stable alert and oriented x1. Patient's labs were relatively unremarkable. Patient was placed on CIWA protocol due to concerns for alcohol withdrawal. Patient also underwent CT head noncontrast, chest x-ray, and MRI brain were found to be unremarkable. Neurology was consulted for further management; however, the patient was unable to obtain MRI abdomen and spine due to constant movement. 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 Patient's AFP was found to be >30,000. Patient was started on Eliquis 5 mg twice daily for treatment of his thrombus. The patient's family has agreed for the patient to be discharged home with hospice. The patient is medically clear for discharge. Follow up with: UMANG WEBSTER MD [Primary Care Provider] - 3-5 Days Prescriptions: Apixaban [Eliquis] 10 mg PO Q12HR #60 tablet Multivitamin Tab [Multiple Vitamin TAB (Theragran)] 1 each PO DAILY #30 tablet
[2021-10-31 22:09] VITALS: BP 125/76
[2021-11-01] MEDS: INSULIN LISPRO 100 UNIT/ML SUB-Q SCH (08:01)
[2021-11-01] MEDS: MULTIVITAMINS ,THERAPEUTIC TAB PO SCH (10:01)
[2021-11-01] MEDS: PANTOPRAZOLE 40 MG TAB PO SCH (10:01)
[2021-11-01] MEDS: APIXABAN 5 MG TAB PO SCH (10:01)
[2021-11-01] MEDS: FOLIC ACID 1 MG TAB PO SCH (10:01)
== END 2021-11-01 10:31 | disposition hospice, home (50) | DRG 70 ==
LOC: ED 20:22 → 3A 10-20 05:56
PROVIDERS: ADMIT Hospitalist; ATTEND Student in an Organized Health Care Education/Training Program
DX: G93.41 Metabolic encephalopathy (principal); I81 Portal vein thrombosis; E87.2 Acidosis; E44.1 Mild protein-calorie malnutrition; K70.30 Alcoholic cirrhosis of liver without ascites; F10.20 Alcohol dependence, uncomplicated; I10 Essential (primary) hypertension; E11.9 Type 2 diabetes mellitus without complications; Z82.49 Family history of ischemic heart disease and other diseases of the circulatory system; Z20.822 Contact with and (suspected) exposure to COVID-19
CPT/HCPCS: 36415; 70450; 70553; 71045; 72158; 74177; 80053; 80074; 80307; 80320; 81001; 82106; 82140; 82306; 82550; 82565; 82607; 82747; 82962; 84134; 84425; 84443; 84484; 85025; 85027; 85610; 85730; 86592; 93005; 94640; 99285; G0378; J3490; Q9967; A9575; G0480; J0696; J1815; J2405; J3411; J7030; J7040; J7120